=== PATIENT | female | born 1940 | race Caucasian/White ===

== ENCOUNTER → 2016-07-05 | Outpatient (CLI) | payer OTHER, MEDICARE ==
--- NOTE | 2016-07-05 12:06 | DX ---
Sacroiliac Joints-3 Views dated July 05, 2016 Indication: Low back and buttock pain. No known trauma. Technique: AP and bilateral oblique views of the sacroiliac joints. Comparison: CT of the abdomen and pelvis dated September 11, 2012. Findings: Severe degenerative disk disease at L5-S1 evidenced by complete disk height loss and endpla te sclerosis is worse on the left. Minimal age-appropriate osteoarthritis involving the lower two-thi rds of the sacroiliac joints are unchanged since 2012. No erosive disease, fracture or bone lesion. Impression: 1. Severe degenerative disk disease at L5-S1. 2. 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
== END ==
LOC: FIMAGING 09:21
PROVIDERS: ATTEND Internal Medicine
DX: M51.37 Other intervertebral disc degeneration, lumbosacral region (principal); M47.898 Other spondylosis, sacral and sacrococcygeal region

== ENCOUNTER → 2016-10-17 | Outpatient (CLI) | payer OTHER, MEDICARE | LOC: BHFA 09:30 | PROVIDERS: ATTEND Internal Medicine Cardiovascular Disease | DX: I48.91 Unspecified atrial fibrillation (principal) ==

== ENCOUNTER → 2017-03-06 | Outpatient (CLI) | payer OTHER, MEDICARE | LOC: FIMAGING 07:41 | PROVIDERS: ATTEND Internal Medicine | DX: F03.90 Unspecified dementia, unspecified severity, without behavioral disturbance, psychotic disturbance, mood disturbance, and anxiety (principal); F32.9 Major depressive disorder, single episode, unspecified; F68.8 Other specified disorders of adult personality and behavior; I67.2 Cerebral atherosclerosis ==

== ENCOUNTER 2018-03-02 09:34 | Inpatient (IN) | payer OTHER, MEDICARE ==
--- NOTE | 2018-03-02 10:07 | EDPHY ---
General - Diagnostics EKG: I reviewed patient's EKG. See [facility] system for interpretation <William Nichole - Last Filed: 03/02/18 10:43> - Diagnostics Imaging: Discussed imaging studies w/ [facility] [employer] [place] Radiologist, I viewed and interpreted images myself - History History Review: I reviewed the patient's medical records, I obtained additional history from the patient's family Smoking Status: Former smoker <Ric Azul - Last Filed: 03/02/18 12:28> Time Seen by Provider: 03/02/18 09:54 Narrative: CHIEF COMPLAINT: Weakness HISTORY OF PRESENT ILLNESS: Patient presents with spouse at bedside by private vehicle. She complains of weakness and tremor. Weakness has been present for 6 months to 1 year. It has worsened over the past week, to the point that she had difficulty ambulating this morning. She states that her legs felt too weak for her. She has no sensory complaints. She does some tremor that has been steady over the past 6 months as well. She has no chest pain, cough, shortness of breath or fever. No urinary complaints. No abdominal pain. Headache. No neck pain or stiffness. She has been seen by primary care physician recently. Her psychiatrist recently changed her medications as she is being treated for depression anxiety. They increased her Paxil from 10 mg daily to 20 mg daily on Friday. They also added Abilify to her. says that she has been increasingly weak but denies any memory changes, abnormal behavior or difficulty ambulating prior to this morning. REVIEW OF SYSTEMS: 10 systems were reviewed and negative with the exception of the elements mentioned in the history of present illness. PCP: Dr. Bautista SPECIALISTS: Dr. Loyd, psychiatry PAST MEDICAL HISTORY: Depression, anxiety, atrial fibrillation, pneumonia, glaucoma PAST SURGICAL HISTORY: "Glaucoma surgery," hysterectomy, lysis of adhesions SOCIAL HISTORY: Remote smoking history, greater than 40 years ago. Lives independently with her spouse without any home assistance. FAMILY HISTORY: Noncontributory EXAMINATION: General Appearance: Alert, no distress. Frail-appearing. Conversing in full sentences Head: normocephalic, atraumatic Eyes: Pupils equal and round, no conjunctival pallor or injection. Bilateral arcus senilis. EOM symmetric. ENT, Mouth: Mucous membranes moist. Airway patent Neck: Normal inspection, supple, non-tender Respiratory: Lungs are clear to auscultation Cardiovascular: Regular rate and rhythm. No murmur Gastrointestinal: Abdomen is soft and nontender Back: non-tender, no bony abnormalities Neurological: GCS 15. A&O, nonfocal. Strength is 4/5 symmetrically in the knees, ankles and great toes. Strength is 4-5 symmetrically in the elbows, wrist and interossei. There is a tardive dyskinesia appearance of the jaw. Resting lower extremity tremor without any intention tremor or caught will rigidity. Skin: Warm and dry, no rash Extremities: Nontender, no pedal edema Psychiatric: Mood and affect normal DIFFERENTIAL DIAGNOSES: Including but not limited to UTI, pneumonia, dehydration, chronic debility, electrolyte disturbance, ACS, tardive dyskinesia MDM: 10:05 a.m. Increasing weakness in patient with history of weakness, depression and recent changes in her medication. She has no chest pain. Vital signs are within normal limits. Her neuro exam is nonfocal. This does appear to be chronic weakness and maybe increasing debility. She does have an apparent tardive dyskinesia with resting tremor of the lower extremities. There is no caught will type rigidity. No dysmetria. I discussed the case with Dr. Nichole, he will evaluate the patient as well. Laboratory studies, EKG and chest x-ray pending. 10:30 a.m. CBC unremarkable with no anemia. Troponin is negative. Notified by RN. The urine set provide is not a clean catch, and when patient was standing she did appear to be very weak and potential fall risk. 11:00 a.m. Laboratory studies are unremarkable. There is minimal leukocyte esterase in the urine. No definitive urinary tract infection, and she clinically has no UTI. Patient is not safe for discharge home at this time as she is a fall risk with increasing weakness. The and patient are both comfortable with mission to the hospital, I do feel this is the right plan of action for the patient 11:20 a.m. Case discussed with hospitalist. She will be admitted to the hospital to Dr. Polanco. She is admitted in stable condition. SUPERVISION: Patient was evaluated and examined in conjunction with my secondary supervising physician as documented. We have both examined the patient. CONSULTATION: None (Ric Azul) - Diagnostics EKG Interpretation: 12-lead EKG interpreted by me; official reading is in computer system. My interpretation is atrial paced at rate of 61. (William Nichole) Imaging Results: Imaging Impressions Chest X-Ray 03/02/18 10:08 Impression: Asymmetric right upper lobe edema versus early pneumonia. - Objective Vital Signs: Initial Vital Signs Temperature (C) 97.5 F 03/02/18 09:39 Heart Rate 61 03/02/18 09:39 Respiratory Rate 18 03/02/18 09:39 Blood Pressure 148/80 H 03/02/18 09:39 O2 Sat (%) 96 03/02/18 09:39 O2 Delivery Mode Room Air Allergies/Adverse Reactions: No Known Allergies Allergy (Unverified 03/02/18 09:45) Home Medications: Medication Instructions Recorded Brimonidine/Timolol [Combigan (*)] 1 drop OP Q12 02/23/14 Brinzolamide 1% [AZOPT 1% (RX)] 1 drops OP TID 02/23/14 C/E/Zn/Cu/OM3/DHA/EPA/LUT/ZEAX 1 each PO DAILY 02/23/14 [Preservision Areds 2 Softgel] Cholecalciferol Vit D3 [Vitamin D3 1,000 units PO DAILY 02/23/14 (*)] Estring Vaginal Ring 1 applic VG Q90D 02/23/14 Travoprost Z 0.004% [Travatan Z 1 drops OP HS 02/23/14 0.004% (*)] Warfarin Sodium [Coumadin 5MG (*)] 5 mg PO DAILY16 02/23/14 Sotalol HCl [Betapace 80 MG (*)] 120 mg PO BID #60 tab 02/25/14 Laboratory Results: Laboratory Results 03/02/18 10:15 03/02/18 10:15 03/02/18 03/02/18 03/02/18 10:30 10:17 10:15 WBC RBC Hgb Hct MCV MCH MCHC RDW Plt Count MPV Neut % (Auto) Lymph % (Auto) Swisher % (Auto) Eos % (Auto) Baso % (Auto) Nucleat RBC Rel Count Absolute Neuts (auto) Absolute Lymphs (auto) Absolute Monos (auto) Absolute Eos (auto) Absolute Basos (auto) Absolute Nucleated RBC Immature Gran % Immature Gran # PT 17.0 SEC H SEC (12.0-15.0) INR 1.37 H (0.83-1.16) APTT 30.7 SEC SEC (23.0-38.0) Sodium Potassium Chloride Carbon Dioxide Anion Gap BUN Creatinine Estimated GFR Glucose Calcium POC Troponin I 0.01 ng/mL ng/mL (0.00-0.08) Prealbumin Urine Color YELLOW Urine Appearance CLEAR Urine pH 6.0 (5.0-7.5) Ur Specific Debary 1.012 (1.002-1.030) Urine Protein NEGATIVE (NEGATIVE) Urine Ketones NEGATIVE (NEGATIVE) Urine Blood NEGATIVE (NEGATIVE) Urine Nitrate NEGATIVE (NEGATIVE) Urine Bilirubin NEGATIVE (NEGATIVE) Urine Urobilinogen NEGATIVE EU EU (0.2-1.0) Ur Leukocyte Esterase 3+ H (NEGATIVE) Urine RBC 3-5 /hpf H /hpf (0-3) Urine WBC 5-10 /hpf H /hpf (0-3) Ur Epithelial Cells NONE SEEN /lpf /lpf (NONE-1+) Urine Mucus TRACE /lpf /lpf (NONE-1+) Urine Glucose NEGATIVE (NEGATIVE) 03/02/18 03/02/18 03/02/18 10:15 10:15 09:45 WBC 5.30 10^3/uL 10^3/uL (3.80-9.50) RBC 4.66 10^6/uL 10^6/uL (4.18-5.33) Hgb 14.5 g/dL g/dL (12.6-16.3) Hct 43.1 % % (38.0-47.0) MCV 92.5 fL fL (81.5-99.8) MCH 31.1 pg pg (27.9-34.1) MCHC 33.6 g/dL g/dL (32.4-36.7) RDW 12.8 % % (11.5-15.2) Plt Count 208 10^3/uL 10^3/uL (150-400) MPV 10.2 fL fL (8.7-11.7) Neut % (Auto) 62.6 % % (39.3-74.2) Lymph % (Auto) 20.9 % % (15.0-45.0) Swisher % (Auto) 13.6 % H % (4.5-13.0) Eos % (Auto) 2.1 % % (0.6-7.6) Baso % (Auto) 0.6 % % (0.3-1.7) Nucleat RBC Rel Count 0.0 % % (0.0-0.2) Absolute Neuts (auto) 3.32 10^3/uL 10^3/uL (1.70-6.50) Absolute Lymphs (auto) 1.11 10^3/uL 10^3/uL (1.00-3.00) Absolute Monos (auto) 0.72 10^3/uL 10^3/uL (0.30-0.80) Absolute Eos (auto) 0.11 10^3/uL 10^3/uL (0.03-0.40) Absolute Basos (auto) 0.03 10^3/uL 10^3/uL (0.02-0.10) Absolute Nucleated RBC 0.00 10^3/uL 10^3/uL (0-0.01) Immature Gran % 0.2 % % (0.0-1.1) Immature Gran # 0.01 10^3/uL 10^3/uL (0.00-0.10) PT INR APTT Sodium 139 mEq/L mEq/L (135-145) Potassium 4.4 mEq/L mEq/L (3.3-5.0) Chloride 106 mEq/L mEq/L (97-110) Carbon Dioxide 28 mEq/l mEq/l (22-31) Anion Gap 5 mEq/L L mEq/L (8-16) BUN 23 mg/dL mg/dL (7-23) Creatinine 0.6 mg/dL mg/dL (0.6-1.0) Estimated GFR > 60 Glucose 89 mg/dL mg/dL (70-100) Calcium 9.9 mg/dL mg/dL (8.5-10.4) POC Troponin I Prealbumin Pending Urine Color Urine Appearance Urine pH Ur Specific Debary Urine Protein Urine Ketones Urine Blood Urine Nitrate Urine Bilirubin Urine Urobilinogen Ur Leukocyte Esterase Urine RBC Urine WBC Ur Epithelial Cells Urine Mucus Urine Glucose Point of Care Test Results: Chemistry 03/02/18 10:17 POC Troponin I 0.01 ng/mL ng/mL (0.00-0.08) Departure <William Nichole - Last Filed: 03/02/18 10:43> <Ric Azul - Last Filed: 03/02/18 12:28> - Departure Disposition: [facility] Inpatient Acute Clinical Impression: Weakness, Resting tremor Condition: Good Referrals: Grupo Bautista MD [Primary Care Provider] - As per Instructions
--- NOTE | 2018-03-02 10:19 | CPEKG ---
Test Reason : OPEN Blood Pressure : / mmHG Vent. Rate : 061 BPM Atrial Rate : 061 BPM P-R Int : 047 ms QRS Dur : 082 ms QT Int : 444 ms P-R-T Axes : 101 055 058 degrees QTc Int : 448 ms Atrial-paced complexes Consider left ventricular hypertrophy Confirmed by William Nichole ([id number]) on 03/02/2018 10:19:19 AM Referred By: Confirmed By:William Nichole
[2018-03-02 10:24] LABS: PLATELET COUNT 208 10^3/uL (150-400)
[2018-03-02 10:35] LABS: INR 1.37 (0.83-1.16)
[2018-03-02] MEDS ORDERED: ACETAMINOPHEN 325 MG TAB PO PRN (13:02)
[2018-03-02] MEDS ORDERED: [UNRECOGNIZED DRUG - OTHER] VG SCH (13:15)
--- NOTE | 2018-03-02 14:09 | GHP ---
DATE OF ADMISSION: 03/02/2018 CHIEF COMPLAINT: Weakness, failure to thrive. HISTORY OF PRESENT ILLNESS: The patient is a 78-year-old woman with a history significant for severe depression and anxiety. She has had worsening weight loss and weakness dating back for a year and a half. However, over the last week and a half to 3 weeks has had escalating symptoms to a point where today she tried to get out of bed and could not get her legs working, so came to the emergency department for further evaluation and treatment. She said she has been losing weight over several months. It appears her weight in clinic have been relatively stable, but since her last clinic visit a couple weeks ago, she has dropped about 10 pounds. She has been eating and drinking okay, but has had intermittent diarrhea over the last 3 weeks, which is new for her. She denies any headache. She has had worsening vision issues due to her glaucoma, which is stable. She denies any chest pain, palpitations, but is in chronic atrial fibrillation followed by Dr. Hernandez. She denies any cough, shortness of breath. She denies any abdominal complaints except for the diarrhea. No nausea , vomiting. No pain. No joint pains or myalgias. No swelling. She has noticed a tremor. She has had a tremor in her hands and feet for several months. However, over the last 2-3 months has developed a facial tremor which is new to her. She denies any fevers, chills, night sweats. Over the last few weeks, her primary care provider and her psychiatrist have been working together to try and get her anxiety and depression under control, feeling like this was the main cause of her failure to thrive and weakness. Her Paxil was recently increased from 10 to 20 mg and Abilify was added last Friday. She states that the change in her symptoms have occurred prior to these medication changes, although the medication changes have not affected it for the better or worse. Her anxiety has been fairly severe, as well as her depression dating back to the of her son a year and half ago. She has been followed closely by Dr. Loyd, a local psychiatrist. REVIEW OF SYSTEMS: A comprehensive review of systems was done with pertinent positives and negatives present in the HPI. PAST MEDICAL HISTORY: 1. Major depression/anxiety with agoraphobia. 2. Macular degeneration. 3. Atrial fibrillation on anticoagulation and rate control. 4. Status post pacemaker placement. 5. Hypertension. 6. Dyslipidemia. 7. Low vitamin D levels. 8. Moderate chronic vaginal enterocele on Estring. 9. Severe protein/calorie malnutrition with a BMI 15. FAMILY HISTORY: Reviewed. Parents are . Son recently from lung cancer. Sister who from colon cancer. SOCIAL HISTORY: She is . She and her live in their own home. She had been relatively independent until recently. Former tobacco use. Drinks about once a week. MEDICATIONS: Please see med reconciliation. ALLERGIES: No known drug allergies. PHYSICAL EXAMINATION: VITAL SIGNS: She is afebrile. Heart rate 58, blood pressure 139/75, respirations 18. She is 93% on room air. GENERAL: She is a cachectic 78-year-old woman with temporal wasting, who was admitted with failure to thrive and weakness. HEENT: Pupils are equal. Extraocular movements intact. Atraumatic. Mucous membranes are dry. NECK: Supple. No adenopathy. HEART: Regular without obvious murmur. Pacemaker in place. LUNGS : Clear bilaterally without wheeze, rhonchi, or rales. ABDOMEN: Flat. No obvious masses. Nontender to palpation. Positive bowel sounds. EXTREMITIES: No clubbing, cyanosis, or edema. MUSCULOSKELETAL: No joint effusions or deformities. Atrophy. NEUROLOGIC: Speech is fluent. She is alert. She moves all 4 extremities equally. Strength appears fairly equal 4+ out of 5 on all 4 extremities. Sensation grossly intact. SKIN: Intact. No rash. PSYCHIATRIC: Flat affect, appropriate. LABORATORY DATA: CBC is within normal limits. Coags shows an INR 1.37. Chemistries are normal. Negative troponin. Urinalysis was not a clean catch and is fairly unremarkable. Chest x-ray personally reviewed, shows asymmetry of the right upper lobe. Patient otherwise asymptomatic and pacemaker in place. Electrocardiogram personally reviewed and interpreted, shows paced rhythm. ASSESSMENT AND PLAN: A 78-year-old with weight loss, failure to thrive, and weakness of unclear etiology. She has been followed closely by her outpatient physician and psychiatrist and the etiology has been thought to be related to her depression, although other possibilities include neurological. Her serologic workup was negative for metabolic cause. In the office, she did have a thyroid and vitamin B12 level which were normal. Today all of her electrolytes were normal. 1. Failure to thrive, weakness, and weight loss: Unclear etiology. Initial blood work is all normal, she has had TSH and vit B12 within a month that was normal. She has developed a worsening tremor and has some parkinsonian features and question possible Lewy body, unfortunately cannot image her due to PPM. Will continue PT, consult Neurology and consult Psychiatry (see below). Will hydrate her and Continue physical therapy and occupational therapy while she is here. 2. Depression/anxiety: I called her psychiatris, Dr. Nunes at [phone], He feels that she is declining from depression as this is the anniversary of the of her son. He has had difficulty treating her as an outpatient due to her heart heart medicine and possible interaction with it. Additionally he wonders if ECT would be helpful but is concerned about her glaucoma. I will continue her usual medications and consult psychiatry for possible inpatient admission for med adjustment. 3. Tremor: This symptom has been worsening over the past several months, unclear etiology. After talking with her primary care provider, I will go ahead and order a neurologic consult to see if she has any evidence of Lewy body dementia or possible Parkinson disease contributing to this. I will additionally order a speech cog eval and monitor her symptoms. Unable to image her at this time due to her pacemaker. 4. Atrial fibrillation: On Sotalol and Status post pacemaker placement, stable. 5. Hypertension: Stable. 6. Dyslipidemia. 7. Glaucoma. We will continue her eyedrops. DISPOSITION: Patient with multiple medical issues, severe protein/calorie malnutrition with acute weight loss and weakness. She will likely need greater than 2 midnight stay for full evaluation and treatment of the above. /[id number]/MODL MTDD
[2018-03-02] MEDS: Brinzolamide 1% 10 ml OPHT.BTL EACHEYE SCH ×2 (14:49→18:30)
[2018-03-02] MEDS: WARFARIN SODIUM 5 MG TAB PO SCH (14:51)
[2018-03-02] MEDS: NS 1,000 ML IV SCH (16:52)
--- NOTE | 2018-03-02 17:02 | PDMN ---
Medical Necessity Medical necessity: Change to IP, as of 03/02/18, per MD; est los >2 mn for failure to thrive w/weight loss, worsening tremor & weakness of unclear etiology ; requiring further monitoring, Neuro/Psychiatry/Dietary consults, IVFs & therapies; hx major depression, anxiety, macular degeneration, AFIB on AC, pacemaker, severe protein/calorie malnutrition
[2018-03-02] MEDS: SOTALOL HCL 80 MG TAB PO SCH (18:05)
[2018-03-02] MEDS: BRIMONIDINE/TIMOLOL 5 ML OPHT.BTL EACHEYE SCH (19:01)
[2018-03-02] MEDS: TRAVOPROST Z 0.004% 2.5 ML OPHT.BTL EACHEYE SCH (20:45)
[2018-03-02] MEDS: clonazePAM 0.5 MG TAB PO SCH (20:47)
[2018-03-03] MEDS: SOTALOL HCL 80 MG TAB PO SCH ×3 (06:15→18:15)
[2018-03-03] MEDS: Brinzolamide 1% 10 ml OPHT.BTL EACHEYE SCH ×3 (06:24→20:01)
[2018-03-03 06:45] LABS: INR 1.44 (0.83-1.16); PROTIME(PATIENT) 17.7 SEC (12.0-15.0)
[2018-03-03] MEDS: BRIMONIDINE/TIMOLOL 5 ML OPHT.BTL EACHEYE SCH ×2 (07:45→18:13)
[2018-03-03] MEDS: clonazePAM 0.5 MG TAB PO SCH ×2 (08:22→20:00)
[2018-03-03] MEDS: ARIPiprazole 2 MG TAB PO SCH (08:23)
[2018-03-03] MEDS: PARoxetine HCL 20 MG TAB PO SCH (08:23)
[2018-03-03] MEDS: CHOLECALCIFEROL VIT D3 1,000 UNITS TAB PO SCH (12:13)
[2018-03-03] MEDS: PRESERVISION AREDS2 FORMULA EYE VIT 1 EACH PO SCH (12:14)
--- NOTE | 2018-03-03 12:16 | ASMTCMCOM ---
CM Note CM Note Notes: Patient admitted with weakness and FTT, has multiple medical and psychiatric issues. She is followed as an outpatient by her PCP Dr Bautista and her psychiatrist Dr Loyd. They have been working on medication reconciliation given her multiple comorbitities. Patient lives with her and was independent until recently. Per notes, her son recently and this has contributed to her ailing health. PT/OT/FISHING ACCESSORIES MAKER have been ordered, as well as psychiatry and neurology consults. Case Management will follow for discharge planning. Date Signed: 03/03/2018 12:15 PM Electronically Signed By:Re Srivastava RN
--- NOTE | 2018-03-03 14:49 | HOSPPROG ---
Hospitalist Progress Note Assessment/Plan: Complicated 78-year-old woman with multiple medical issues including severe depression and atrial fibrillation comes in with failure to thrive and weight loss. She has been evaluated by her primary care physician and psychiatrist as an outpatient over the last few months as her decline has progressed. It is felt by both her PCP and psychiatrist that the decline is likely related to her severe depression and anxiety as medical issues have been ruled out except for a tremor that has worsened over the past few months. # failure to thrive and weight loss, thought secondary to depression which has been difficult to treat due to medication interactions. No obvious infection, a normal electrolytes. Will have Neurology evaluate her to rule out any possible neurologic etiology # severe depression and anxiety likely contributing to her presenting symptoms. I had a long detailed discussion with her psychiatrist Dr. Loyd. He has been limited as far as treatment options due to her sotalol medication which can interact and cause long QT syndrome. * Psychiatric consult for possible inpatient admission to adjust her medications due to severe decline over the last few weeks * Negative CT scan a year ago will defer to Neurology for any further imaging needs * Options include stopping the sotalol which would open up treatment for different psychiatric medications # atrial fibrillation currently controlled with sotalol and on warfarin for anticoagulation I discussed her in detail with Dr. Hernandez her ticket sales agent. She has been on sotalol for years with good control however it has limited options because of the drug drug interactions and long QT syndrome. She could stop the sotalol and monitor her symptoms since she has not been on a drug holiday any time recently. If she has recurrent symptoms of rapid AFib Dr. Hernandez would be consideration of an ablation since she already has a pacemaker in place * Consider DC sotalol and monitor, patient does not need to be on telemetry. Patient would like to discuss with her 1st * If she has recurrent AFib off the sotalol she could potentially get an ablation per Dr. Hernandez * I feel as if the quality of life and limitations of treating her depression may be worth the ablation. # tremor, question parkinsonian symptoms. Unclear if she has Parkinson's or possible Lewy body dementia although she is relatively clear. Unable to do any MRI imaging due to her pacemaker. * Neurology consult regarding tremor * I do not think it is related to her failure to thrive but would like to Neurology input * May be related to her medications? And vision loss that see # diarrhea: Patient complained of diarrhea for 3 weeks however has had no none since admission. Will check a GI panel if she has recurrent watery diarrhea # glaucoma: Worsening vision loss. Unfortunately this may preclude ECT treatment for above depression with discuss with Psychiatry. Disposition: Will need greater than 2 midnight stay due to her severe failure to thrive and weight loss that has been escalating. Await psychiatric evaluation for possible transfer to inpatient psych and Neurology evaluation. If she is transfer to inpatient psych would consider stopping the sotalol to open up options for treating her verses ECT. She does have severe glaucoma Subjective: Patient feels about the same today no significant changes. No diarrhea since admission. Objective: Vital Signs Temp Pulse Resp BP Pulse Ox 36.5 C 70 18 141/74 H 94 03/03/18 11:31 03/03/18 11:31 03/03/18 11:31 03/03/18 11:31 03/03/18 11:31 Laboratory Results 03/03/18 06:25 03/02/18 03/03/18 03/04/18 05:59 05:59 05:59 Intake Total 1350 Output Total 250 600 Balance 1100 -600 PT 17.7 SEC (12.0-15.0) H 03/03/18 06:25 INR 1.44 (0.83-1.16) H 03/03/18 06:25 - Physical Exam Constitutional: chronically ill appearing, cachectic Eyes: PERRL, EOMI Ears, Nose, Mouth, Throat: moist mucous membranes Cardiovascular: regular rate and rhythym Respiratory: no respiratory distress, no rales or rhonchi, clear to auscultation Gastrointestinal: soft, non-tender abdomen Genitourinary: no bladder fullness Skin: warm, normal color (Pale) Musculoskeletal: generalized weakness Psychiatric: interacting appropriately ICD10 Worksheet Patient Problems: Problems Problem Status Onset Resting tremor Acute Weakness Acute Atrial fibrillation and flutter Acute
[2018-03-03] MEDS: WARFARIN SODIUM 5 MG TAB PO SCH (17:09)
[2018-03-03] MEDS: NS 1,000 ML IV SCH (17:17)
--- NOTE | 2018-03-03 18:46 | NEUROPROG ---
Assessment: [id number] - Neurology Consult: - CC: Failure to Thrive - HPI: Pt with significant depression/anxiety has had worsening weight loss and weakness dating back to 2016. Over the past 3 weeks symptoms of weakness has worsened and she has been too weak to get out of bed. Pt has lost 10 lbs in the last few weeks preceding hospital admission on 03/02/18. She has tremor in both her hands and feet for several months and over the last 2-3 months has developed a facial tremor. Pt has been working with her PCM and psychiatrist in the outpatient setting and they feel her depression/anxiety explains her failure to thrive. The patient did start abilify a few weeks ago but tremor preceded this. She denied bradykinesia. I spoke with her and her and neither endorsed memory loss, parkinsonian symptoms (other than tremor), or significant cognitive decline. They state she just has no motivation to get out of bed or eat food for the last year. Neurologic exam on 03/03/18 showed tremor in mouth and arms/legs (intermittent) but also the patient was emaciated. She had no bradykinesia, significant rigidity on exam, or cognitive problems to suggest dementia. She certainly may have an atypical neurodegenerative disease but treatment would like not be any different than current therapy aimed at treating her anxiety/depression. I suspect her tremor may be a combination of abilify side effects (facial tremor) and increased sympathetic tone or low blood pressure (from her underlying weight loss). I would recommend stopping abilify, checking a head CT, and focusing on getting her to find the motivation to get out of bed and consume much more calories. Both patient and her felt that was the likely solution as well. Pt can f/u with me in the clinic if they would like but at this time I do not think it is likely she has a neurodegenerative process. - PMHx: depression/anxiety, macular degeneration, afib on anticoagulation, pacemaker, HTN, HLD, vaginal enterocele, severe protein/calorie malnutrition - SHx: FHx: parents - ROS: Pt denied acute fever, total vision loss, active severe chest pain, respiratory failure, total body severe rash, total bowel/bladder incontinence, psychosis, active seizures, or active bleeding - O: VS reviewed General: Alert, emaciated Eyes: Fundoscopic exam not able to visualize optic disks CV: Heart RRR, no murmur, no carotid bruit Lungs: Clear to auscultation bilaterally, no rhonchi or rales Neuro: - Mental: . Oriented x person/place/date . concentration appears normal . speech fluency/comprehension normal . memory appears normal . fund of knowledge appear intact - Cranial Nerves: . II: PERRL, VFFTC . III/IV/: EOMI, no nystagmus, normal smooth pursuits, no Ptosis . V: facial sensation intact to LT . VII: face symmetric to eye closure and smile . VIII: hearing intact to conversation . IX/X: uvula raises symmetrically . XI: SCM 5/5 B/L strength . XII: tongue protrudes midline w/nl strength - Motor: . Tone: normal tone in all 4 extremity, tremor in arms/legs, mouth tremor . Strength: no pronator drift, strength 5/5 throughout (B/L delt, bic, tri, hand science job titles, hf/he, df/pf) - Reflexes: B/L bic/BR/patella 2/4 - Sensory: all 4 extremity intact to light touch - Coord: [id number] wnl, DIAMOND wnl, cndr-ma-[id number] wnl - Gait: deferred - Labs: 02/12/2018- TSH wnl, B12 wnl 03/02/18- CBC wnl, Chem anion gap 5L, UA LE 3+, Urine culture positive - Rads: 03/06/17- Head CT: cerebrovascular atherosclerosis, otherwise normal head CT 03/02/18- CXR: asymmetric R upper lobe edema versus early PNA (I personally visualized the images on 03/03/18) - Assessment: 1. Failure to Thrive, Tremor: Pt with significant depression/anxiety has had worsening weight loss and weakness dating back to 2016. Over the past 3 weeks symptoms of weakness has worsened and she has been too weak to get out of bed. Pt has lost 10 lbs in the last few weeks preceding hospital admission on . She has tremor in both her hands and feet for several months and over the last 2-3 months has developed a facial tremor. Pt has been working with her PCM and psychiatrist in the outpatient setting and they feel her depression/ anxiety explains her failure to thrive. The patient did start abilify a few weeks ago but tremor preceded this. She denied bradykinesia. I spoke with her and her and neither endorsed memory loss, parkinsonian symptoms (other than tremor), or significant cognitive decline. They state she just has no motivation to get out of bed or eat food for the last year. Neurologic exam on 03/03/18 showed tremor in mouth and arms/legs (intermittent) but also the patient was emaciated. She had no bradykinesia, significant rigidity on exam, or cognitive problems to suggest dementia. She certainly may have an atypical neurodegenerative disease but treatment would likely not be any different than current therapy aimed at treating her anxiety/depression. I suspect her tremor may be a combination of abilify side effects (facial tremor) and increased sympathetic tone or low blood pressure (from her underlying weight loss). I would recommend stopping abilify, checking a head CT, and focusing on getting her to find the motivation to get out of bed and consume much more calories. Both patient and her felt that was the likely solution as well. Pt can f/u with me in the clinic if they would like but at this time I do not think it is likely she has a neurodegenerative process. - 2. Depression/anxiety - Plan: - Cannot have brain MRI due to pacemaker - Head CT to exclude brain lesion - Stop abilify if possible as it may be worsening tremor - Work closely with PCM and psychiatry with focus on improving motivation to get out of bed and consume much more calories - F/U in neurology clinic as needed Objective: Vital Signs Temp Pulse Resp BP Pulse Ox 37.0 C 80 16 174/91 H 94 03/03/18 16:13 03/03/18 18:15 03/03/18 16:13 03/03/18 18:15 03/03/18 16:13 Laboratory Results 03/03/18 06:25 03/02/18 03/03/18 03/04/18 05:59 05:59 05:59 Intake Total 1350 1900 Output Total 250 2400 Balance 1100 -500 PT 17.7 SEC (12.0-15.0) H 03/03/18 06:25 INR 1.44 (0.83-1.16) H 03/03/18 06:25 Allergies/Adverse Reactions: No Known Allergies Allergy (Verified 03/02/18 11:30)
[2018-03-03] MEDS: TRAVOPROST Z 0.004% 2.5 ML OPHT.BTL EACHEYE SCH (20:01)
--- NOTE | 2018-03-03 22:35 | PDCONSULT ---
Electron Beam Operator Note: PSYCHIATRY MD CONSULT Psychiatry consult requested by hospitalist Dr. Stephanie Polanco to evaluate this patient with severe depression, make any medication recommendations, also to consider possible inpatient psychiatric admission. Records reviewed , patient interviewed, discussed case with hospitalist and neurology, and called outpatient psychiatrist Dr. Worley (with patient verbal consent) for collateral CC: "I have been having a lot of tremors, I'm on 2 different antidepressants and an antianxiety medicine..." BRIEF HX: 78-year-old female with history of depression and anxiety, admitted to [facility] inpatient medicine service for weight-loss, failure to thrive, and weakness of unclear etiology, but presumed due to worsening depression and anxiety. Patient acknowledges feeling sad, depressed. 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 She admits praying to God that she is ready to go- feeling she's "had a good life, a good man, had a good family", but is now ready to go". She denies that she would do anything to end her life prematurely, but does acknowledge passive suicidal ideation. Not wanting to go outside because "bright sun affects my glaucoma and vision", has trouble with depth perception, can not read any longer, and avoids socializing because "being around a lot of people makes me nervous...too much commotion". Admits having occasional panic or anxiety attack about once/week, tries to calm self by holding her legs still and praying. Feels safe when her is around, otherwise home alone during day while he is at work, until he retires at end of this month. When he is not there, she worries about things such as "what if the water heater blew up" and doesn't use electric stove because clothes may catch on fire if she can't see well. Denies sleeping all day as reports, states she "walks all day up and down" flights of stairs doing some chores in their 3 level home, and does take naps. Poor appetite with weight loss over past several months. Was 120# down to 87# and reported with BMI=15. Denies problems with thinking/memory, no crying spells, +insomnia with early AM awakening at 2 or 3am, +low energy, +anhedonia which she reports is due to physical inability. Used to enjoy going outdoors, socializing, traveling, attending temple and spending time with family. States she is tenriism/spiritual, and she could call test cell technician for support, but then admits not going to temple x 2 years and there's a new test cell technician she doesn't know. Denied ever experiencing psychotic symptoms, although once heard brother call her name and expects son Maykel to perhaps do something like this sometime. Denied drug or alcohol use. reports gradual onset of anxiety and depressive symptoms, in retrospect , about 5 years ago following a significant financial stressor with Medicare denying payments and billing them $80K. Around then, in 2013 she had acute vision change in L eye due to a "macular hole", then began a course of eye surgeries, issues with glaucoma, cataracts, and ongoing vision impairment, having to stop working earlier than planned due to her vision, and then in 2015 their son was diagnosed with metastatic renal cell carcinoma and 02/16/2017 , one week after his 51st birthday. Over the past several years she has also lost several siblings. described her baseline as happy, outgoing, social , "she would light up the room when she entered", but over the past 1.5-2 years , she has become more withdrawn, isolative, depressed, "her spark left", she no longer engagse with family or grandchildren, and doesn't allow anyone to come over to their home; she no longer drives, exercises, cooks, and seems to sleep all the time, including with manager digital ad operations awakening. She has developed a tremor , which preceeded her recent psychiatric medications, and this tremor worsens when she is anxious or angry. She has no motivation, only leaving the house with her for medical appointments. She has been with poor appetite and weight loss, and feels she is "wasting away" and is very concerned about her. PAST PSYCHIATRIC HISTORY: As above. No prior psychiatric diagnosis, treatment, therapy, or medications until 6 months ago when started seeing therapist Dr. Pratibha Conn ([phone]) . This was same therapist whom her son had found very helpful during his divorce. Apparently therapist would like to see patient weekly but only seeing q2-3wks. Denied history of eating disorder. Denied history of trauma. PSYCHIATRIC MEDICATIONS: last scourer Dr. Bautista reportedly started Klonopin for anxiety around time of son's 1 year ago, then at some point during the past year added Wellbutrin (?dose) which according to patient and "helped a little", and then was referred to psychiatrist Dr. Akira Worley whom she started seeing in December 2017. It was not clear why Wellbutrin was discontinued or if at maximum dose before change management to Paxil. Paxil was started 10mg around 6 weeks ago, with discontinuation of Wellbutrin when Paxil was increased to 20mg recently. Thereafter Abilify 0.5mg added for augmentation, increased to 1mg last week. Patient and report one day of feeling better following start of Paxil, and again after Abilify was added, but then no notable effect. Both think Wellbutrin had been helping a little. -Dr. Worley reports medication choice of Paxil was based on least drug-drug interactions with Sotalol for her Afib to minimize QTc prolongation and considerations with her glaucoma, in conjunction with cardiology and opthamology. Also tremor was present prior to start of any of these medications. Unclear how tremor related to start of Wellbutrin. He will call back with more medication details when has chart available. SUBSTANCE USE: Reported EtOH 1-2x/year, no other tobacco or illicit drug use. concurs. PAST MEDICAL HISTORY: macular degeneration glaucoma atrial fibrillation on anticoagulation and rate control medication s/p pacemaker placement hypertention dyslipidemia Vitamin D deficiency moderate chronic vaginal enterocele on Estring hysterectomy severe protein/calorie malnutrition with BMI=15. FAMILY/PSYCHIATRIC HISTORY: Father- EtOH, otherwise denied major mental illness, suicide, or substance use known in family Youngest brother 2 years ago with early Alzheimer's and post surgical complications, 1 older brother at 8yo of skull fracture post fall out of a window, 1 sister of cancer, another of DM/old age, 1 brother of AIDS long ago. Has one older brother still living in [place]. 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 High school grad, grew up in [place], middle of 7 children in Anabaptist family. Both patient and were each previously x 13-14 years. They have been x 39years since 1978, with their only 2 kids from his prior marriage. Patient raised son Maykel since he was 13, he was living in [place]. Daughter Margaret is 50yo and living in [place]. Total 6 grandchildren, 4 living locally 9ages 18-25). Patient never able to have her own children due to tubal ,endometriosis,hysterectomy. MSE: cachectic, frail-appearing CF lying in hospital bed, wearing glasses. Good eye contact, soft-spoken but articulate with normal rate speech. Oral/buccal/ jaw tremor noted, increased as patient seemed more anxious, which seemed to be around discussing upsetting topics around loss. Mood depressed, affect depressed /flattened, but with increased anxiety as interview continued and then patient asked for to return and requested to terminate interview because feeling tired. Thoughts linear, with goal-directed responses, no AH/VH or any delusions/paranoia noted. +passive SI but denied any thoughts, plan or intent to harm self or others. insight fair, judgment limited. cognition seemed intact. IMPRESSION: 78yo CF with depression onset and worsening over past few years, especially since son 1 year ago with recent anniversary of loss. Has only recently begun in treatment with limited psychiatric medication options due to her medical issues and drug interactions, but if with no other medical/neurological cause for her weight loss, depression has reached severity of significantly affecting her health and functioning, including now with passive suicidal ideations. DIAGNOSIS: Major depressive disorder, severe, with passive suicidal ideations, r/o Depression with melancholic features, or with anxious features r/o generalized anxiety d/o Panic disorder with agoraphobia RECOMMENDATIONS: -Continue medical workup to ensure no medical etiology contributing to her failure to thrive and weight loss, including any indicated cancer screenings -Neurology finding no clear etiology of tremor except possible enhanced physiological tremor or related to severe malnutrition, but plan to continue outpatient follow-up -Recent discussion by hospitalist with office machine punch operator to trial off Sotalol and monitor Afib, to allow for more medication treatment options of her depression. and patient will be discussing this and make decision. -Outpatient psychiatrist will call back after checking on details around Wellbutrin dose prior to discontinuation. All did agree patient was a little better on Wellbutrin, and may benefit from combination antidepressant therapy, although given her recent worsening, inpatient psychiatric admission for acute stabilization, with consideration for ECT has also been discussed as possibility. -In discussion with outpatient psychiatrist, who has been coordinating care with outpatient providers both cardiology and opthamology, plan continue Paxil 20mg for now and also Abilify 1mg since tremor was not related to either, and she has not had therapeutic dose for therapeutic period of time to adequately assess response. -Patient does NOT want any change, especially decrease, in her Klonopin for anxiety. In hospital setting, with monitoring of oral intake, rehydration, OT and PT to ensure physical activity and strength rebuilding, some early improvement may be noted. -Would still also have ST-cog assessment done. Although not evident on conversation, and certainly impacted by depression, patient does have several risk factors for cognitive impairment -Presently, inpatient psychiatric treatment would need consideration following medical stabilization. Alternately, inpatient rehab with focus on regaining physical strength and weight, with continued psychiatric management, could be considered. -Will try to obtain collateral from outpatient therapist -Behavioral health will continue to follow closely while hospitalized, with further recommendations as indicated. Thank you for consult and do not hesitate to call with any questions.
[2018-03-04 04:29] LABS: INR 1.95 (0.83-1.16); PROTIME(PATIENT) 22.3 SEC (12.0-15.0)
[2018-03-04] MEDS: SOTALOL HCL 80 MG TAB PO SCH ×2 (05:32→17:08)
[2018-03-04] MEDS: Brinzolamide 1% 10 ml OPHT.BTL EACHEYE SCH ×3 (07:23→21:52)
[2018-03-04] MEDS: BRIMONIDINE/TIMOLOL 5 ML OPHT.BTL EACHEYE SCH ×2 (09:14→18:17)
[2018-03-04] MEDS: ARIPiprazole 2 MG TAB PO SCH (09:14)
[2018-03-04] MEDS: PARoxetine HCL 20 MG TAB PO SCH (09:14)
[2018-03-04] MEDS: clonazePAM 0.5 MG TAB PO SCH ×2 (09:14→21:51)
[2018-03-04] MEDS: PRESERVISION AREDS2 FORMULA EYE VIT 1 EACH PO SCH (13:21)
[2018-03-04] MEDS: CHOLECALCIFEROL VIT D3 1,000 UNITS TAB PO SCH (13:21)
--- NOTE | 2018-03-04 13:31 | HOSPPROG ---
Hospitalist Progress Note Assessment/Plan: # failure to thrive and weight loss, thought secondary to depression which has been difficult to treat due to medication interactions. No obvious infection, normal electrolytes, tsh, B12. -neurology consult reviewed, doubts neurodegenerative process -appreciate psych input -discussed cancer screening: up to date on colon ca screening, hasn't had mammogram # severe depression and anxiety likely contributing to her presenting symptoms. Discussed with Dr. Bonilla, psych * CT head - no acute change * cont paxil at current dose * psych considering adding back wellbutrin, to which she seemed to respond well in the past * cont klonopin # atrial fibrillation - currently paced rhythm, on sotalol. Some discussion about QT prolongation risk and drug interactions. At this point, Paxil and Wellbutrin are not QT prolonging drugs, thus will continue Sotalol. INR near therapeutic today, 1.95. * will stop sotalol if psychiatry wishes to use a drug that has QT prolonging properties (vs closely following QT segment with initiation of new drug) * If she has recurrent AFib off the sotalol she could potentially get an ablation per Dr. Hernandez * Cont coumadin, pharmacy dosing # tremor. Reviewed neurology notes, doubts neurodegenerative process, recommends stopping abilify, which may increase facial tremor * D/C abilify * cog eval requested # diarrhea: none here, GI pathogen panel if recurs # glaucoma: Worsening vision loss. Unfortunately this may preclude ECT treatment for above depression with discuss with Psychiatry. Disposition: cont inpt, may need inpt psych once medically stabilized Subjective: Pt doing ok. She ate lunch today and felt better about eating. No fevers/chills. Has intermittent orofacial tremor. Objective: Vital Signs Temp Pulse Resp BP Pulse Ox 36.6 C 74 16 95/57 L 93 03/04/18 11:25 03/04/18 11:25 03/04/18 11:25 03/04/18 11:25 03/04/18 11:25 Laboratory Results 03/03/18 06:25 03/03/18 03/04/18 03/05/18 05:59 05:59 05:59 Intake Total 1350 2400 Output Total 250 2900 400 Balance 1100 -500 -400 PT 22.3 SEC (12.0-15.0) H 03/04/18 04:03 INR 1.95 (0.83-1.16) H 03/04/18 04:03 - Physical Exam Constitutional: no apparent distress Eyes: PERRL Ears, Nose, Mouth, Throat: moist mucous membranes Cardiovascular: regular rate and rhythym Respiratory: no respiratory distress Gastrointestinal: normoactive bowel sounds, soft, non-tender abdomen Skin: warm Musculoskeletal: full muscle strength Neurologic: AAOx3 Psychiatric: interacting appropriately ICD10 Worksheet Patient Problems: Problems Problem Status Onset Resting tremor Acute Weakness Acute Atrial fibrillation and flutter Acute
[2018-03-04] MEDS ORDERED: WARFARIN SODIUM 2.5 MG TAB PO ONE (17:00)
[2018-03-04] MEDS: NS 1,000 ML IV SCH (18:17)
--- NOTE | 2018-03-04 19:08 | ASMTCMCOM ---
CM Note CM Note Notes: Chart reviewed. Patient also seen in rounds. Medications adjusted. Per PT should have services and OT recommending SNF. Dr Bonilla in to see. She has been FTT. Needs TBD. CM to follow. Plan: TBD Date Signed: 03/04/2018 03:25 PM Electronically Signed By:Elvi Graham RN
[2018-03-04] MEDS: TRAVOPROST Z 0.004% 2.5 ML OPHT.BTL EACHEYE SCH (21:53)
[2018-03-05] MEDS: SOTALOL HCL 80 MG TAB PO SCH ×2 (05:20→18:11)
[2018-03-05 05:40] LABS: INR 2.19 (0.83-1.16); PROTIME(PATIENT) 24.4 SEC (12.0-15.0)
[2018-03-05] MEDS ORDERED: buPROPion XL 150 MG TAB PO SCH (09:00)
[2018-03-05] MEDS: BRIMONIDINE/TIMOLOL 5 ML OPHT.BTL EACHEYE SCH ×2 (09:36→18:14)
[2018-03-05] MEDS: clonazePAM 0.5 MG TAB PO SCH ×2 (09:36→19:48)
[2018-03-05] MEDS: Brinzolamide 1% 10 ml OPHT.BTL EACHEYE SCH ×3 (11:22→19:49)
[2018-03-05] MEDS: CHOLECALCIFEROL VIT D3 1,000 UNITS TAB PO SCH (11:25)
[2018-03-05] MEDS: PRESERVISION AREDS2 FORMULA EYE VIT 1 EACH PO SCH (11:25)
--- NOTE | 2018-03-05 12:59 | HOSPPROG ---
Hospitalist Progress Note Assessment/Plan: # failure to thrive and weight loss, thought secondary to depression which has been difficult to treat. No obvious infection, normal electrolytes, tsh, B12. -neurology consult reviewed, doubts neurodegenerative process -appreciate psych input -discussed cancer screening: up to date on colon ca screening, hasn't had mammogram or pap -pt and not in favor or CT chest/abd/pelvis and believe this is related to her depression and apathy # severe depression and anxiety likely contributing to her presenting symptoms. Discussed with Dr. Bonilla, psych * CT head - no acute change * Paxil decreased to 10 mg daily with addition of wellbutrin (the latter can increase serum concentrations of paxil), discussed with psych and pharmacy * cont klonopin * psych considering ECT, though glaucoma is a concern. Will work on med management for now. # atrial fibrillation - currently paced rhythm, on sotalol. Some discussion about QT prolongation risk and drug interactions. At this point, Paxil and Wellbutrin are not QT prolonging drugs, thus will continue Sotalol. INR therapeutic today. * will stop sotalol if psychiatry wishes to use a drug that has QT prolonging properties (vs closely following QT segment with initiation of new drug) * reviewed EKG today, QTc 454, minimal change from prior, repeat this afternoon * If she has recurrent AFib off the sotalol she could potentially get an ablation per Dr. Hernandez * Cont coumadin, pharmacy dosing # tremor. Reviewed neurology notes, doubts neurodegenerative process, recommended stopping abilify, which can exacerbate facial tremor * D/C'd abilify * cog eval done 03/01, MOCA score 27/30 # diarrhea: none here, GI pathogen panel if recurs # glaucoma: Worsening vision loss. Unfortunately this may preclude ECT treatment for above depression. Disposition: cont inpt. PT recommending home care, OT recommending SNF. CM following. Subjective: Pt doing a little better today. Appetite improved. No pain. No fevers. Facial tremor a little better, more intermittent. Objective: Vital Signs Temp Pulse Resp BP Pulse Ox 37.2 C 64 16 115/66 94 03/05/18 12:00 03/05/18 12:00 03/05/18 12:00 03/05/18 12:00 03/05/18 12:00 Microbiology 03/05/18 08:30 Gastrointestinal Tract Panel (PCR) - Final Stool No Organism Detected Laboratory Results 03/03/18 06:25 03/04/18 03/05/18 03/06/18 05:59 05:59 05:59 Intake Total 2400 1465 Output Total 2900 1100 400 Balance -500 365 -400 PT 24.4 SEC (12.0-15.0) H 03/05/18 05:04 INR 2.19 (0.83-1.16) H 03/05/18 05:04 - Physical Exam Constitutional: no apparent distress, cachectic Eyes: PERRL Ears, Nose, Mouth, Throat: moist mucous membranes Cardiovascular: regular rate and rhythym Respiratory: no respiratory distress, clear to auscultation Gastrointestinal: normoactive bowel sounds Skin: warm Musculoskeletal: full muscle strength Neurologic: AAOx3 Psychiatric: interacting appropriately ICD10 Worksheet Patient Problems: Problems Problem Status Onset Resting tremor Acute Weakness Acute Atrial fibrillation and flutter Acute
--- NOTE | 2018-03-05 15:10 | SOAPPROG ---
SOAP Progress Note Assessment/Plan: Assessment: 78cy CF with depr/anxiety increased over past year following son's in 2016 with recent anniversary of loss, with reported initial gradual onset of depressive symptoms a few years ago due to macular degeneration causing early fdc and now with progressive vision impairment and tremor of uncertain etiology. Started antidepressant treatment about 1 year ago, with medication options limited due to QTc risks since on Sotolol (since 2007per pt) for chronic Afib, has pacemaker. Admitted for weight loss and failure to thrive, and in the absence of any other clear medical etiology, has been presumed due to severe depression. Admits to depressed mood, anxiety and passive SI. 03/05/18 14:06 Met with patient yesterday on 03/04 for 30min. Reports she was feeling very confused and very anxious about plans around her medications this AM since there was discussion of trial off Sotolol to provide for more antidepressant med options. Patient recalls starting Wellbutrin last year, recalls this med "took the edge off...I didn't worry about everything". Thinks therapist encouraged her to see psychiatrist to find something better for her depr/anxiety/tremor. Recalls only feeling good, perhaps hopeful for medication effect, the first day she started Abilify, but thereafter not. Does not think Paxil has been helpful. States she would be interested in resuming Wellbutrin, also wants to continue Klonopin. Fills own pill organizer, reports compliance, fills meds at [facility] in [place]. However reports feeling very dependent on her , and more anxious when he is not home/around. Brief f/u phone call with Dr. Worley today- reports pt was on Wellbutrin SR 150mg and never higher, also on Klonopin for 2 weeks at time he started working with her, starting Paxil 10mg end of November 2017 , then uptitrated to 15 then 20mg by 02/16/18, with D/C of Wellbutrin at that time to simplify regimen. Would support restart of Wellbutrin, with trial for antidepressant combination therapy, again given limited medication options since on Sotalol. Abilify was added 02/25/18 at 0.5mg then 1mg since Paxil was without significant effect. MSE: Resting in bed, cachectic, fair to good eye contact, wearing glasses, hospital gown, oral-buccal tremor noted on R, nml speech vol and rate, mood depressed although also states "very anxious this morning" with discussion of trial off Sotalol, affect restricted, smiling briefly with expressing appreciation of support, denied any AH/VH or other psychotic symptoms, no responding to int stimuli, denied plan/intent to harm self although continues with passive SI. insight fair, judgment impaired. Cognition seemed conversationally intact. RECOMMENDATIONS: Discussed with hospitalist. Will hold on d/c Sotolol (which also causes pt much anxiety to consider) as other options being considered, including combination antidepr medication, inpt psych and even ECT. -Restart Wellbutrin 150mg but as XL form, in AM, Pt and have consistently reported some benefit on Wellbutrin. -Decrease Paxil to 10mg due to drug interaction causing increased level with addition of Wellbutrin, and change Paxil to HS dosing since can be sedating. Will consider other options to this med, in part due to many side effects of Paxil especially in elderly, no reported benefits and ideally would like to avoid addition of atypical antipsychotic just for augmentation since already with tremor of unknown etiology. Paxil also increases Abilify level/effect, which may take more time to clear. Monitor for any improvement in tremor off Abilify (noting tremor was present unrelated to these psychotropics). -Pharmacy will print list of all antidepressants/psychotropic meds with no QTc effects -Cont Klonopin 0.5mg BID for anxiety. Consider trial of short-acting BZD Ativan 0.5mg bid or tid prn to assess effect on anxiety and tremor. -Will t/w inpatient psychiatry and Dr. Peterson about ECT consideration. -Continue to monitor po intake, labs as indicated, weight, and participation with OT/PT. Also ST for speech-cog. -Will continue to follow. Please call with any questions. Objective: Vital Signs Temp Pulse Resp BP Pulse Ox 37.2 C 64 16 115/66 94 03/05/18 12:00 03/05/18 12:00 03/05/18 12:00 03/05/18 12:00 03/05/18 12:00 Microbiology 03/05/18 08:30 Gastrointestinal Tract Panel (PCR) - Final Stool No Organism Detected Laboratory Results 03/03/18 06:25 03/04/18 03/05/18 03/06/18 05:59 05:59 05:59 Intake Total 2400 1465 Output Total 2900 1100 400 Balance -500 365 -400 PT 24.4 SEC (12.0-15.0) H 03/05/18 05:04 INR 2.19 (0.83-1.16) H 03/05/18 05:04 - Time Spent With Patient Time Spent With Patient: 30min - Pending Discharge Pending Discharge Within 24 Hours: No Pending Discharge Within 48 Hours: No ICD10 Worksheet Patient Problems: Problems Problem Status Onset Resting tremor Acute Weakness Acute Atrial fibrillation and flutter Acute
--- NOTE | 2018-03-05 15:20 | CPEKG ---
Test Reason : OPEN Blood Pressure : / mmHG Vent. Rate : 060 BPM Atrial Rate : 060 BPM P-R Int : 192 ms QRS Dur : 088 ms QT Int : 454 ms P-R-T Axes : 124 044 057 degrees QTc Int : 454 ms Atrial-paced complexes Consider left ventricular hypertrophy Confirmed by Ronald Contreras ([id number]) on 03/05/2018 3:20:15 PM Referred By: Confirmed By:Ronald Contreras
--- NOTE | 2018-03-05 15:24 | CPEKG ---
Test Reason : OPEN Blood Pressure : / mmHG Vent. Rate : 067 BPM Atrial Rate : 067 BPM P-R Int : 169 ms QRS Dur : 087 ms QT Int : 434 ms P-R-T Axes : 079 043 050 degrees QTc Int : 458 ms Atrial-paced complexes Consider left ventricular hypertrophy Confirmed by Ronald Contreras ([id number]) on 03/05/2018 3:23:39 PM Referred By: Confirmed By:Ronald Contreras
[2018-03-05] MEDS: WARFARIN SODIUM 2.5 MG TAB PO SCH (17:14)
[2018-03-05] MEDS: TRAVOPROST Z 0.004% 2.5 ML OPHT.BTL EACHEYE SCH (19:49)
[2018-03-05] MEDS ORDERED: PARoxetine HCL 10 MG TAB PO SCH (20:00)
[2018-03-05] MEDS ORDERED: PARoxetine HCL 20 MG TAB PO SCH (21:00)
[2018-03-06 04:52] LABS: INR 2.18 (0.83-1.16); PROTIME(PATIENT) 24.3 SEC (12.0-15.0)
[2018-03-06] MEDS: SOTALOL HCL 80 MG TAB PO SCH ×2 (05:07→17:28)
[2018-03-06] MEDS: buPROPion XL 150 MG TAB PO SCH (06:31)
[2018-03-06] MEDS: clonazePAM 0.5 MG TAB PO SCH ×2 (06:32→20:43)
[2018-03-06] MEDS: BRIMONIDINE/TIMOLOL 5 ML OPHT.BTL EACHEYE SCH ×2 (07:57→17:32)
[2018-03-06] MEDS: Brinzolamide 1% 10 ml OPHT.BTL EACHEYE SCH ×3 (07:57→17:31)
[2018-03-06] MEDS ORDERED: MELATONIN 3 MG TAB PO PRN (11:49)
[2018-03-06] MEDS ORDERED: LORazepam 0.5 MG TAB PO PRN (11:50)
[2018-03-06] MEDS ORDERED: LORazepam 0.5 MG TAB PO ONE (12:00)
[2018-03-06] MEDS: CHOLECALCIFEROL VIT D3 1,000 UNITS TAB PO SCH (12:24)
[2018-03-06] MEDS: PRESERVISION AREDS2 FORMULA EYE VIT 1 EACH PO SCH (12:25)
--- NOTE | 2018-03-06 12:43 | ASMTCMCOM ---
CM Note CM Note Notes: Chart reviewed. 78 year old patient with FTT and anxiety. CM to follow. Needs TBD. Plan: TBD Date Signed: 03/06/2018 12:23 PM Electronically Signed By:Elvi Graham RN
--- NOTE | 2018-03-06 12:47 | ASMTCMCOM ---
CM Note CM Note Notes: Patient rounded on by interdisciplinary team. Dr. Bonilla present as well. Plan of care established that patient is to trial at home with HHC and if not improving then she will require admission to inpatient geropsych for more aggressive therapy. She will require Home health RN, PT and OT. Patient requesting to stay one more evening and dc tomorrow. Referral placed via allscripts. Plan: DC with [facility]. Date Signed: 03/06/2018 12:27 PM Electronically Signed By:Elvi Graham RN
--- NOTE | 2018-03-06 16:10 | HOSPPROG ---
Hospitalist Progress Note Assessment/Plan: # failure to thrive and weight loss, thought secondary to depression which has been difficult to treat. No obvious infection, normal electrolytes, tsh, B12. -neurology consult reviewed, doubts neurodegenerative process -appreciate psych input -discussed cancer screening: up to date on colon ca screening, hasn't had mammogram or pap -pt and not in favor or CT chest/abd/pelvis and believe this is related to her depression and apathy # severe depression and anxiety likely contributing to her presenting symptoms. Discussed with Dr. Bonilla, psych * CT head - no acute change * Paxil decreased to 10 mg qhs with addition of wellbutrin (the latter can increase serum concentrations of paxil), discussed with psych and pharmacy * cont klonopin, prn ativan per psych * consideration given to [facility] placement, which was recommended by psychiatry, but pt and want to go home. They agree to return for [facility] placement if her condition deteriorates at home # atrial fibrillation - currently paced rhythm, on sotalol. Some discussion about QT prolongation risk and drug interactions. At this point, Paxil and Wellbutrin are not QT prolonging drugs, thus will continue Sotalol. INR therapeutic today. * will stop sotalol if psychiatry wishes to use a drug that has QT prolonging properties (vs closely following QT segment with initiation of new drug) * reviewed EKG today, QTc 454, minimal change from prior * If she has recurrent AFib off the sotalol she could potentially get an ablation per Dr. Hernandez * Cont coumadin, pharmacy dosing # tremor. Reviewed neurology notes, doubts neurodegenerative process, recommended stopping abilify, which can exacerbate facial tremor * D/C'd abilify * cog eval done 03/01, MOCA score 27/30 # diarrhea: none here, GI pathogen panel if recurs # glaucoma: Worsening vision loss. Unfortunately this may preclude ECT treatment for above depression, but focus is currently on med management Disposition: cont inpt. Plan for d/c in am with C RN, PT, OT Subjective: Pt doing ok. Quite anxious during multi-disciplinary rounds. Eating a little better. Considered [facility] placement but pt really wants to go home. Objective: Vital Signs Temp Pulse Resp BP Pulse Ox 36.6 C 73 16 130/68 H 96 03/06/18 15:45 03/06/18 15:45 03/06/18 15:45 03/06/18 15:45 03/06/18 15:45 Microbiology 03/05/18 08:30 Gastrointestinal Tract Panel (PCR) - Final Stool No Organism Detected Laboratory Results 03/03/18 06:25 03/05/18 03/06/18 03/07/18 05:59 05:59 05:59 Intake Total 1465 1228 Output Total 1100 400 1 Balance 365 828 -1 PT 24.3 SEC (12.0-15.0) H 03/06/18 04:24 INR 2.18 (0.83-1.16) H 03/06/18 04:24 - Physical Exam Constitutional: no apparent distress Eyes: PERRL Ears, Nose, Mouth, Throat: moist mucous membranes Cardiovascular: regular rate and rhythym Respiratory: no respiratory distress Gastrointestinal: normoactive bowel sounds Skin: warm Musculoskeletal: full muscle strength Neurologic: AAOx3 Psychiatric: anxious ICD10 Worksheet Patient Problems: Problems Problem Status Onset Resting tremor Acute Weakness Acute Atrial fibrillation and flutter Acute
--- NOTE | 2018-03-06 16:55 | SOAPPROG ---
SOAP Progress Note Assessment/Plan: Assessment: 78cy CF with depr/anxiety increased over past year following son's in 2016 with recent anniversary of loss, with reported initial gradual onset of depressive symptoms a few years ago due to macular degeneration causing early group home and now with progressive vision impairment and tremor of uncertain etiology. Started antidepressant treatment about 1 year ago, with medication options limited due to QTc risks since on Sotolol (since 2007per pt) for chronic Afib, has pacemaker. Admitted for weight loss and failure to thrive, and in the absence of any other clear medical etiology, has been presumed due to severe depression. Admits to depressed mood, anxiety and passive SI. 03/05/18 14:06 Met with patient yesterday on 03/04 for 30min. Reports she was feeling very confused and very anxious about plans around her medications this AM since there was discussion of trial off Sotolol to provide for more antidepressant med options. Patient recalls starting Wellbutrin last year, recalls this med "took the edge off...I didn't worry about everything". Thinks therapist encouraged her to see psychiatrist to find something better for her depr/anxiety/tremor. Recalls only feeling good, perhaps hopeful for medication effect, the first day she started Abilify, but thereafter not. Does not think Paxil has been helpful. States she would be interested in resuming Wellbutrin, also wants to continue Klonopin. 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 However reports feeling very dependent on her , and more anxious when he is not home/around. Brief f/u phone call with Dr. Hinton today- reports pt was on Wellbutrin SR 150mg and never higher, also on Klonopin for 2 weeks at time he started working with her, starting Paxil 10mg end of November 2017 , then uptitrated to 15 then 20mg by 02/16/18, with D/C of Wellbutrin at that time to simplify regimen. Would support restart of Wellbutrin, with trial for antidepressant combination therapy, again given limited medication options since on Sotalol. Abilify was added 02/25/18 at 0.5mg then 1mg since Paxil was without significant effect. MSE: Resting in bed, cachectic, fair to good eye contact, wearing glasses, hospital gown, oral-buccal tremor noted on R, nml speech vol and rate, mood depressed although also states "very anxious this morning" with discussion of trial off Sotalol, affect restricted, smiling briefly with expressing appreciation of support, denied any AH/VH or other psychotic symptoms, no responding to int stimuli, denied plan/intent to harm self although continues with passive SI. insight fair, judgment impaired. Cognition seemed conversationally intact. RECOMMENDATIONS: Discussed with hospitalist. Will hold on d/c Sotolol (which also causes pt much anxiety to consider) as other options being considered, including combination antidepr medication, inpt psych and even ECT. -Restart Wellbutrin 150mg but as XL form, in AM, Pt and have consistently reported some benefit on Wellbutrin. -Decrease Paxil to 10mg due to drug interaction causing increased level with addition of Wellbutrin, and change Paxil to HS dosing since can be sedating. -Will consider other options to this med, in part due to many side effects of Paxil especially in elderly, no reported benefits and ideally would like to avoid addition of atypical antipsychotic just for augmentation since already with tremor of unknown etiology. Paxil also increases Abilify level/effect, which may take more time to clear. Monitor for any improvement in tremor off Abilify (noting tremor was present unrelated to these psychotropics). -Pharmacy will print list of all antidepressants/psychotropic meds with no QTc effects -Cont Klonopin 0.5mg BID for anxiety. Consider trial of short-acting BZD Ativan 0.5mg bid or tid prn to assess effect on anxiety and tremor. -Will t/w inpatient psychiatry and Dr. Peterson about ECT consideration. -Continue to monitor po intake, labs as indicated, weight, and participation with OT/PT. Also ST for speech-cog. -Will continue to follow. Please call with any questions. 03/06/18 16:24 Met with patient today, with present. Pt reports feeling better today, reports had energy for engaging with PT yesterday during day as well, and slept well last night through the night. Attributes it to the med she took last night, which was Paxil 10mg that had been held in AM and moved to HS dosing. Also perhaps with addition of Wellbutrin. Both note tremor is "less intense", unsure if due to med changes or being off Abilify. Discussed other medications, recent changes, indications, future options. States she met with weighmaster lead for consult yesterday and was encouraged. Feeling more hopeful overall. Discussed options including inpatient geropsych, and patient really wants to go home this weekend. agrees to this, with plan for LOW threshold to return to ER or call 911 and hospitalize psychiatrically if with any sxs of regressing, progressively worsening mood, weight loss and not eating, not following up with scheduled appts etc. Pt in agreement as is . ECT an option in the future as well with worsening sxs. Discussed this with rounding hospitalist team. Pt really wants to stay one more night to ensure sleep continues well and med changes are stable. Plan will be then to have home health f/u with RN, PT, OT. Pt, feeling already a bit more anxious with entire group in room, expressed more anxiety around plan for people coming over every day to her house. Reassured a schedule would be made and visits perhaps 3x/wk. Informed pt this would be very important to comply with plan as it would indicate a willingness and effort being put forth to get better, in addition to med compliance. Pt expressed understanding. Reviewed need for good nutrition, including adding Ensure or Boost supplements as recommended by dietary. She likes chocolate and pasta, so eat more of this too. Again denied desire to maintain a low body weight or intentionally restrict. Admits when very depressed and having gotten to point of feeling hopeless, she had no desire to eat and no appetite. MSE: resting in bed after having showered this AM, good eye contact, nml speech vol/rate, articulate. mood "a little better today", affect actually brighter and more engaging. still with oral-buccal tremor but notably less (although with some increase correlating with expressed anxiety). no tremor noted at rest or with intention on FNF testing in upper extremities. no psychosis, denied SI. Alert and oriented to person, place, time/date, situation, although initially stated "January" but when this month was questioned , "I meant February". RECOMMENDATIONS: -CONTINUE BUPROPION XL 150MG QAM, restarted yesterday AM. Tolerating, no QTc changes, and pt reports feeling better this AM. This is a change from prior SR formulation and restart of this med which both report some + benefit from in past. PCP noted concerns around Hyponatremia in past possibly related (although not typical for this med, there are case reports), and concerns around appetite suppression/weight loss/tremor. Both report tremor present prior to any psychotropics, and plan to improve caloric intake, with goal for weight gain. Also patient has reported decr anxiety on Wellbutrin, PCP noting less use of prn Xanax when she was on this in the past (again, not typical for this med, but there are case reports). Possible also if any Parkinsons that dopamine effects with wellbutrin help tremor. -Continue PAXIL at 10MG PO QHS. Moving Paxil to HS pt feels helped her sleep. Dose decreased due to possible incr level of this med by interaction with Wellbutrin. Also lower dose will decr adverse side effects especially with her being elderly. -ABILIFY DISCONTINUED. No problems off this med since yesterday. Less intensity of oral-buccal tremor noted today. Not sure if clearly related, but possible. Paxil does increase level of Abilify and will decrease clearance. -Outpatient PCP plans referral to movement d/o clinic at [facility] for evaluation as indicated -Will need intense HOME HEALTH CARE with RN,PT,OT services after discharge, also recommend weight be checked regularly, to monitor closely for any signs of regression/decline physically or with any further weight loss, also monitoring functioning. Informed patient that if she is not allowing these services to work with her, this would be considered serious with her lack of agreed follow- through. Consider Meals on Wheels? -Plan made with patient, and outpatient providers also hospitalist is for LOW THRESHOLD to hospitalize for INPATIENT GEROPSYCHIATRY if unable to make any progress as outpatient with agreed-upon plan, including weekly outpatient follow up with therapist, and perhaps every 2-4 weeks with outpatient psychiatry and PCP. will need to take patient to nearest ER if noting worsening symptoms of depression or any lack of follow-through, not eating, weight loss, med noncompliance, or suicidality. -Pt agreed to trial LORAZEPAM 0.25mg once daily prn for her anxiety, which if it helps could be useful for before a therapy appointment or visit by home health. -If any continued insomnia, could also use MELATONIN 3MG HS PRN. -please instruct patient and/or to call DR. HINTON , OUTPATIENT PSYCHIATRIST to schedule appointment for NEXT WEEK. per his request. -Schedule f/u with outpatient PCP in 1-2 weeks -Has appointment with OUTPATIENT THERAPIST PRATIBHA NORTH on Friday. She will NOT be able to see weekly and recommends patient find another therapist who can work with her at the level of intensity she needs. However, will see next week. -Has been eating 80% of meals in hospital when documented, and was seen by marshmallow maker. Will need supplementation like Boost or Ensure. -please call with any questions. 03/06/18 18:12 Phone call from therapist Pratibha North after she obtained verbal consent from patient. Discussed plan. Although initially with reservations, after discussion she agreed with plan, with low threshold to hospitalize, possibly with intensive outpatient program thereafter. Expressed reservations with patient's ability to follow through since has been verbally compliant in past without follow-through. Had told therapist in the past she had intentionally not been eating and hoped to . Therapist informed that she would not be able to see patient weekly or even ongoing with her level of acuity and history of noncompliance, but will f/u with patient next week after discharge. Objective: Vital Signs Temp Pulse Resp BP Pulse Ox 36.6 C 73 16 130/68 H 96 03/06/18 15:45 03/06/18 15:45 03/06/18 15:45 03/06/18 15:45 03/06/18 15:45 Laboratory Results 03/03/18 06:25 03/05/18 03/06/18 03/07/18 05:59 05:59 05:59 Intake Total 1465 1228 Output Total 1100 400 1 Balance 365 828 -1 PT 24.3 SEC (12.0-15.0) H 03/06/18 04:24 INR 2.18 (0.83-1.16) H 03/06/18 04:24 - Time Spent With Patient Time Spent With Patient: 30min - Pending Discharge Pending Discharge Within 24 Hours: No Pending Discharge Within 48 Hours: No ICD10 Worksheet Patient Problems: Problems Problem Status Onset Atrial fibrillation and flutter Acute Resting tremor Acute Weakness Acute
[2018-03-06] MEDS: WARFARIN SODIUM 2.5 MG TAB PO SCH (17:28)
[2018-03-06] MEDS ORDERED: PARoxetine HCL 10 MG TAB PO SCH (20:00)
[2018-03-06] MEDS: TRAVOPROST Z 0.004% 2.5 ML OPHT.BTL EACHEYE SCH (20:43)
[2018-03-07] MEDS ORDERED: NS 1,000 ML IV SCH (00:15)
[2018-03-07] MEDS: SOTALOL HCL 80 MG TAB PO SCH (04:13)
[2018-03-07 05:09] LABS: INR 1.96 (0.83-1.16); PROTIME(PATIENT) 22.4 SEC (12.0-15.0)
[2018-03-07] MEDS: buPROPion XL 150 MG TAB PO SCH (07:14)
[2018-03-07] MEDS: clonazePAM 0.5 MG TAB PO SCH (07:14)
[2018-03-07 07:25] VITALS: BP 185/96
--- NOTE | 2018-03-07 08:52 | PDIAF ---
- Diagnosis Diagnosis: depression / anxiety Code Status: Do Not Resuscitate - Medication Management Discharge Medications: Medications to Continue on Transfer Brimonidine/Timolol [Combigan (*)] 1 drop EACHEYE BID 02/23/14 [Last Taken 03/02] Brinzolamide 1% [AZOPT 1% (RX)] 1 drop EACHEYE TID 02/23/14 [Last Taken 03/02/18 ] C/E/Zn/Cu/OM3/DHA/EPA/LUT/ZEAX [Preservision Areds 2 Softgel] 1 each PO DAILY@ 02/23/14 [Last Taken 03/01/18] Cholecalciferol Vit D3 [Vitamin D3 (*)] 2,000 units PO DAILY@02/23/14 [Last Taken 03/01/18] Estring Vaginal Ring 1 applic VG Q90D 02/23/14 [Last Taken 02/20/14] Travoprost Z 0.004% [Travatan Z 0.004% (*)] 1 drops EACHEYE HS 02/23/14 [Last Taken 03/01/18] Sotalol HCl [SOTALOL] 120 mg PO BID 03/02/18 [Last Taken 03/02/18] clonazePAM [Klonopin (*)] 0.5 mg PO BID 03/02/18 [Last Taken 03/02/18] Melatonin [Melatonin 3 MG (*)] 3 mg PO DAILY@1999 PRN #30 tab 03/07/18 [Last Taken Unknown] PARoxetine HCL [Paxil 10mg (*)] 10 mg PO DAILY@2000 #30 tab 03/07/18 [Last Taken Unknown] Warfarin Sodium [Coumadin 2MG (*)] 3 mg PO DAILY16 #30 tab 03/07/18 [Last Taken Unknown] buPROPion XL [Wellbutrin 150mg XL] 150 mg PO DAILY@0730 #30 tab 03/07/18 [Last Taken Unknown] Discharge Medications: Refer to the Discharge Home Medication list for PRN reason. PICC Care - Routine: N/A - Orders Services needed: Home Care, Registered Nurse, Physical Therapy, Occupational Therapy Home Care Face to Face: I certify that this patient was under my care and that I had the required [id number] encounter meeting the encounter requirements on the discharge day. My findings support the fact that the patient is homebound as defined in Home Care Face to Face Continued: CMS Chapter 7 Medicare Benefits Manual 30.1.1 , The condition of the patient is such that there exists a normal inability to leave home and consequently, leaving home would require a considerable and taxing effort. Isolation Type: None Diet Recommendation: no restrictions on diet Additional Instructions: Paxil 10 mg at bedtime. Wellbutrin XL 150 mg daily. Follow up with your behavioral health team Friday as planned. Home health care. You need an INR drawn on Friday as your coumadin dose has been adjusted. Take 3 mg daily and further dose adjustment per the coumadin clinic after your INR on Friday. Follow up with Dr. Valenzuela. - Labs/Radiology BMP Date: 03/02/18 (results to dr. valenzuela) PT/INR Date: 02/23/18 (results to coumadin clinic and dr. valenzuela) - Follow Up Care Current Providers and Referrals: Grupo Valenzuela MD [Primary Care Provider] - As per Instructions
[2018-03-07] MEDS: Brinzolamide 1% 10 ml OPHT.BTL EACHEYE SCH (08:56)
[2018-03-07] MEDS: BRIMONIDINE/TIMOLOL 5 ML OPHT.BTL EACHEYE SCH (08:56)
[2018-03-07] MEDS ORDERED: WARFARIN SODIUM 3 MG TAB PO ONE (11:00)
--- NOTE | 2018-03-07 12:05 | SOAPPROG ---
SOAP Progress Note Assessment/Plan: Assessment: 78cy CF with depr/anxiety increased over past year following son's in 2016 with recent anniversary of loss, with reported initial gradual onset of depressive symptoms a few years ago due to macular degeneration causing early senior care and now with progressive vision impairment and tremor of uncertain etiology. Started antidepressant treatment about 1 year ago, with medication options limited due to QTc risks since on Sotolol (since 2007per pt) for chronic Afib, has pacemaker. Admitted for weight loss and failure to thrive, and in the absence of any other clear medical etiology, has been presumed due to severe depression. Admits to depressed mood, anxiety and passive SI. 03/05/18 14:06 Met with patient yesterday on 03/04 for 30min. Reports she was feeling very confused and very anxious about plans around her medications this AM since there was discussion of trial off Sotolol to provide for more antidepressant med options. Patient recalls starting Wellbutrin last year, recalls this med "took the edge off...I didn't worry about everything". Thinks therapist encouraged her to see psychiatrist to find something better for her depr/anxiety/tremor. Recalls only feeling good, perhaps hopeful for medication effect, the first day she started Abilify, but thereafter not. Does not think Paxil has been helpful. States she would be interested in resuming Wellbutrin, also wants to continue Klonopin. Fills own pill organizer, reports compliance, fills meds at [facility] in [place]. However reports feeling very dependent on her , and more anxious when he is not home/around. Brief f/u phone call with Dr. Hinton today- reports pt was on Wellbutrin SR 150mg and never higher, also on Klonopin for 2 weeks at time he started working with her, starting Paxil 10mg end of November 2017 , then uptitrated to 15 then 20mg by 02/16/18, with D/C of Wellbutrin at that time to simplify regimen. Would support restart of Wellbutrin, with trial for antidepressant combination therapy, again given limited medication options since on Sotalol. Abilify was added 02/25/18 at 0.5mg then 1mg since Paxil was without significant effect. MSE: Resting in bed, cachectic, fair to good eye contact, wearing glasses, hospital gown, oral-buccal tremor noted on R, nml speech vol and rate, mood depressed although also states "very anxious this morning" with discussion of trial off Sotalol, affect restricted, smiling briefly with expressing appreciation of support, denied any AH/VH or other psychotic symptoms, no responding to int stimuli, denied plan/intent to harm self although continues with passive SI. insight fair, judgment impaired. Cognition seemed conversationally intact. RECOMMENDATIONS: Discussed with hospitalist. Will hold on d/c Sotolol (which also causes pt much anxiety to consider) as other options being considered, including combination antidepr medication, inpt psych and even ECT. -Restart Wellbutrin 150mg but as XL form, in AM, Pt and have consistently reported some benefit on Wellbutrin. -Decrease Paxil to 10mg due to drug interaction causing increased level with addition of Wellbutrin, and change Paxil to HS dosing since can be sedating. -Will consider other options to this med, in part due to many side effects of Paxil especially in elderly, no reported benefits and ideally would like to avoid addition of atypical antipsychotic just for augmentation since already with tremor of unknown etiology. Paxil also increases Abilify level/effect, which may take more time to clear. Monitor for any improvement in tremor off Abilify (noting tremor was present unrelated to these psychotropics). -Pharmacy will print list of all antidepressants/psychotropic meds with no QTc effects -Cont Klonopin 0.5mg BID for anxiety. Consider trial of short-acting BZD Ativan 0.5mg bid or tid prn to assess effect on anxiety and tremor. -Will t/w inpatient psychiatry and Dr. Peterson about ECT consideration. -Continue to monitor po intake, labs as indicated, weight, and participation with OT/PT. Also ST for speech-cog. -Will continue to follow. Please call with any questions. 03/06/18 16:24 Met with patient today, with present. Pt reports feeling better today, reports had energy for engaging with PT yesterday during day as well, and slept well last night through the night. Attributes it to the med she took last night, which was Paxil 10mg that had been held in AM and moved to HS dosing. Also perhaps with addition of Wellbutrin. Both note tremor is "less intense", unsure if due to med changes or being off Abilify. Discussed other medications, recent changes, indications, future options. States she met with retort operator for consult yesterday and was encouraged. Feeling more hopeful overall. Discussed options including inpatient geropsych, and patient really wants to go home this weekend. agrees to this, with plan for LOW threshold to return to ER or call 911 and hospitalize psychiatrically if with any sxs of regressing, progressively worsening mood, weight loss and not eating, not following up with scheduled appts etc. Pt in agreement as is . ECT an option in the future as well with worsening sxs. Discussed this with rounding hospitalist team. Pt really wants to stay one more night to ensure sleep continues well and med changes are stable. Plan will be then to have home health f/u with RN, PT, OT. Pt, feeling already a bit more anxious with entire group in room, expressed more anxiety around plan for people coming over every day to her house. Reassured a schedule would be made and visits perhaps 3x/wk. Informed pt this would be very important to comply with plan as it would indicate a willingness and effort being put forth to get better, in addition to med compliance. Pt expressed understanding. Reviewed need for good nutrition, including adding Ensure or Boost supplements as recommended by dietary. She likes chocolate and pasta, so eat more of this too. Again denied desire to maintain a low body weight or intentionally restrict. Admits when very depressed and having gotten to point of feeling hopeless, she had no desire to eat and no appetite. MSE: resting in bed after having showered this AM, good eye contact, nml speech vol/rate, articulate. mood "a little better today", affect actually brighter and more engaging. still with oral-buccal tremor but notably less (although with some increase correlating with expressed anxiety). no tremor noted at rest or with intention on FNF testing in upper extremities. no psychosis, denied SI. Alert and oriented to person, place, time/date, situation, although initially stated "January" but when this month was questioned , "I meant February". RECOMMENDATIONS: -CONTINUE BUPROPION XL 150MG QAM, restarted yesterday AM. Tolerating, no QTc changes, and pt reports feeling better this AM. This is a change from prior SR formulation and restart of this med which both report some + benefit from in past. PCP noted concerns around Hyponatremia in past possibly related (although not typical for this med, there are case reports), and concerns around appetite suppression/weight loss/tremor. Both report tremor present prior to any psychotropics, and plan to improve caloric intake, with goal for weight gain. Also patient has reported decr anxiety on Wellbutrin, PCP noting less use of prn Xanax when she was on this in the past (again, not typical for this med, but there are case reports). Possible also if any Parkinsons that dopamine effects with wellbutrin help tremor. -Continue PAXIL at 10MG PO QHS. Moving Paxil to HS pt feels helped her sleep. Dose decreased due to possible incr level of this med by interaction with Wellbutrin. Also lower dose will decr adverse side effects especially with her being elderly. -ABILIFY DISCONTINUED. No problems off this med since yesterday. Less intensity of oral-buccal tremor noted today. Not sure if clearly related, but possible. Paxil does increase level of Abilify and will decrease clearance. -Outpatient PCP plans referral to movement d/o clinic at [facility] for evaluation as indicated -Will need intense HOME HEALTH CARE with RN,PT,OT services after discharge, also recommend weight be checked regularly, to monitor closely for any signs of regression/decline physically or with any further weight loss, also monitoring functioning. Informed patient that if she is not allowing these services to work with her, this would be considered serious with her lack of agreed follow- through. Consider Meals on Wheels? -Plan made with patient, and outpatient providers also hospitalist is for LOW THRESHOLD to hospitalize for INPATIENT GEROPSYCHIATRY if unable to make any progress as outpatient with agreed-upon plan, including weekly outpatient follow up with therapist, and perhaps every 2-4 weeks with outpatient psychiatry and PCP. will need to take patient to nearest ER if noting worsening symptoms of depression or any lack of follow-through, not eating, weight loss, med noncompliance, or suicidality. -Pt agreed to trial LORAZEPAM 0.25mg once daily prn for her anxiety, which if it helps could be useful for before a therapy appointment or visit by home health. -If any continued insomnia, could also use MELATONIN 3MG HS PRN. -please instruct patient and/or to call DR. HINTON , OUTPATIENT PSYCHIATRIST to schedule appointment for NEXT WEEK. per his request. -Schedule f/u with outpatient PCP in 1-2 weeks -Has appointment with OUTPATIENT THERAPIST PRATIBHA NORTH on Friday. She will NOT be able to see weekly and recommends patient find another therapist who can work with her at the level of intensity she needs. However, will see next week. -Has been eating 80% of meals in hospital when documented, and was seen by hospital personnel director. Will need supplementation like Boost or Ensure. -please call with any questions. 03/06/18 18:12 Phone call from therapist Pratibha North after she obtained verbal consent from patient. Discussed plan. Agrees with plan, and low threshold to hospitalize, possibly with intensive outpatient program thereafter. Has reservations with patient's ability to follow through since has been verbally compliant in past without follow-through. Has told Pratibha in the past she intentionally wasn't eating and hoped to . Objective: Vital Signs Temp Pulse Resp BP Pulse Ox 36.5 C 81 16 185/96 H 95 03/07/18 07:24 03/07/18 07:24 03/07/18 07:24 03/07/18 07:24 03/07/18 07:24 Laboratory Results 03/03/18 06:25 03/06/18 03/07/18 03/08/18 05:59 05:59 05:59 Intake Total 1228 702 400 Output Total 400 803 Balance 828 -101 400 PT 22.4 SEC (12.0-15.0) H 03/07/18 04:26 INR 1.96 (0.83-1.16) H 03/07/18 04:26 ICD10 Worksheet Patient Problems: Problems Problem Status Onset Atrial fibrillation and flutter Acute Resting tremor Acute Weakness Acute
--- NOTE | 2018-03-07 17:23 | GDS ---
DISCHARGE DIAGNOSES: 1. Failure to thrive with anorexia and weight loss thought secondary to depression. 2. Severe depression and anxiety. 3. Atrial fibrillation. 4. Chronic anticoagulation. 5. Tremor. 6. Glaucoma. CONSULTANTS: 1. Altagracia Bonilla MD, psychiatry. 2. Primitivo Peña DO, neurology. HISTORY: For details, please see History and Physical dated March 02, 2018. In brief, the patie nt is 78-year-old female with a long history of severe depression, anxiety, which has been difficult to manage due to medication interactions with her sotalol, which she takes for rhythm stabilization f or atrial fibrillation. She presented to the emergency department with weakness and weight loss at h ome. In addition, she was recently started on Paxil, and Abilify was added. She was admitted to the hospital for further management. HOSPITAL COURSE: Patient admitted to the med/surg unit. Serologic workup was normal, including norm al TSH and B12. Neurology consult was obtained in the setting of her orofacial tremor. It is noted that Abilify may worsen this type of tremor, and thus, Abilify was discontinued. Neurology did not believe there was any further neurodegenerative process. We discussed cancer screening. She is up to date on her colon cancer screening, but she has not had Pap smear or mammogram. The patient and her declined CT chest, abdomen, pelvis as they feel confident that her condition is related to her severe depression and anxiety, which has been worsenin g over several years. Psychiatry consult was obtained. Some consideration was given to electroconvu lsive shock therapy, though, given her history of glaucoma, it was opted to pursue medication managem ent first. She apparently done well on Wellbutrin in the past. She was re-initiated on Wellbutrin X L 150 mg daily. With this addition, her Paxil dose was decreased to 10 mg at bedtime. She has also been maintained on Klonopin 0.5 mg twice daily. Upon admission, consideration was given to discontinue sotalol given the concern for drug interaction s and QT prolongation with multiple psychiatric medications. However, neither Wellbutrin or Paxil ar e significant offenders for QT prolongation. She did have several EKGs performed after initiation of Wellbutrin, which did not reveal significant changes in her QT segment. She has had no evidence of arrhythmias here or history of arrhythmias. Therefore, she is continued on her sotalol. In addition , she is continued on her Coumadin for anticoagulation and stroke prevention. If she were to need ps ychiatric medication adjustment and required a medication that may prolonged QT segment, it is possib le she could stop her sotalol, and if she has recurrent atrial fibrillation, she may undergo ablation . She will follow up with Dr. Hernandez, her outpatient flamer sealer. Regarding her Coumadin dosing, she is nearly therapeutic with an INR of 1.96 at discharge. She will be discharged on Coumadin 3 mg daily and will have Home Health RN draw an INR on Friday. Further man agement per the Coumadin Clinic. With respect to her mental health needs, she will have close followup with her outpatient psychologis t and psychiatrist. Home Health RN and PT are ordered. Ultimately, Psychiatry did recommend placeme nt in a geriatric psychiatric facility. However, the patient and her refused this. They wis hed to proceed with the current medication regimen as they do feel like she has improved. Her intake is also improved, and her appetite is better. Everyone agrees that if her condition deteriorates, t here is a low threshold for her to be readmitted for placement in a geriatric psychiatric facility. DISPOSITION: Patient is discharged home in stable condition with Home Health RN, PT, OT. FOLLOWUP: 1. Singh Bautista MD, primary care. 2. Akira Loyd MD, her psychiatrist. DISCHARGE MEDICATIONS: Please see GTI for complete updated outpatient medication list. New medications on discharge include: Wellbutrin XL 150 mg p.o. daily, #30, no refills; melatonin 3 mg p.o. at bedtime, #30, no refills; Paxil 10 mg p.o. q.h.s., #30, no refills; warfarin 3 mg p.o. peggy ly, #30, no refills. Discontinued medications: Abilify. She will continue all other outpatient medications as previously prescribed, including Klonopin 0.5 m g p.o. b.i.d., sotalol 120 mg p.o. b.i.d., Estring vaginal ring, eye drops for her glaucoma, vitamin D3. /[id number]/MODL
--- NOTE | 2018-03-08 12:02 | ASDISCHSUM ---
Discharge Information Plan Status:Home with Home Health Medically Cleared to Leave:03/07/2018 Discharge Date:03/07/2018 10:55 AM CM D/C Disposition:Home Health Service ADT D/C Disposition:Home Health Service Projected Discharge Date:03/07/2018 11:00 AM Transportation at D/C:Family Discharge Delay Reason: Follow-Up Date:03/07/2018 11:00 AM Discharge Slot: Final Diagnosis: Placement Information Referral Type:*Home Health Care Services Referral ID:[id number] Provider Name:[facility] Address 1:[address] Address 2: City:[place] Selection Factors: State:[place] Patient Contact Information Contact Name:NOAH Relationship: Address:[address] [place] [address] City:[place] Alternate Phone: State/Zip Code:[place] [address] Email: Financial Information Financial Class:Medicare Primary Plan Desc:MEDICARE INPATIENT Primary Plan Number:[id number] Secondary Plan Desc:[employer]/MDR SUPPLEMENT Secondary Plan Number:[id number] Assessment Information [facility] CM Progress Note CM Note CM Note Notes: Chart reviewed. 78 year old patient with FTT and anxiety. CM to follow. Needs TBD. Plan: TBD Date Signed: 03/06/2018 12:23 PM Electronically Signed By:Elvi Graham RN [facility] CM Progress Note CM Note CM Note Notes: Patient admitted with weakness and FTT, has multiple medical and psychiatric issues. She is followed as an outpatient by her PCP Dr Bautista and her psychiatrist Dr Loyd. They have been working on medication reconciliation given her multiple comorbitities. Patient lives with her and was independent until recently. Per notes, her son recently and this has contributed to her ailing health. PT/OT/ASSOCIATE RESEARCH SCIENTIST have been ordered, as well as psychiatry and neurology consults. Case Management will follow for discharge planning. Date Signed: 03/03/2018 12:15 PM Electronically Signed By:Re Srivastava RN [facility] CM Progress Note CM Note CM Note Notes: Chart reviewed. Patient also seen in rounds. Medications adjusted. Per PT should have services and OT recommending SNF. Dr Bonilla in to see. She has been FTT. Needs TBD. CM to follow. Plan: TBD Date Signed: 03/04/2018 03:25 PM Electronically Signed By:Elvi Graham RN [facility] CM Progress Note CM Note CM Note Notes: Patient rounded on by interdisciplinary team. Dr. Bonilla present as well. Plan of care established that patient is to trial at home with [facility] and if not improving then she will require admission to inpatient geropsych for more aggressive therapy. She will require Home health RN, PT and OT. Patient requesting to stay one more evening and dc tomorrow. Referral placed via allscripts. Plan: DC with [facility]. Date Signed: 03/06/2018 12:27 PM Electronically Signed By:Elvi Graham RN Intervention Information
== END 2018-03-07 10:55 | disposition home health service (06) | DRG 640 ==
LOC: F1N 12:51 → OBSVTOIN 13:37
PROVIDERS: ADMIT Internal Medicine; ATTEND Internal Medicine
DX: R62.7 Adult failure to thrive (principal); F32.2 Major depressive disorder, single episode, severe without psychotic features; E43 Unspecified severe protein-calorie malnutrition; Z68.1 Body mass index [BMI] 19.9 or less, adult; F40.01 Agoraphobia with panic disorder; R19.7 Diarrhea, unspecified; R25.1 Tremor, unspecified; I48.91 Unspecified atrial fibrillation; I10 Essential (primary) hypertension; E78.5 Hyperlipidemia, unspecified; H40.9 Unspecified glaucoma; Z87.891 Personal history of nicotine dependence; Z95.0 Presence of cardiac pacemaker; Z87.01 Personal history of pneumonia (recurrent); Z79.01 Long term (current) use of anticoagulants
CPT/HCPCS: 84134-90; 84484-PO; 92523-GN; 97110-GP; 97116-GP; 97162-GP; 97166-GO; 97530-GP; 97535-GO; G0515-GO; G8978-GP-CJ; G8979-GP-CI; G8987-GO-CL; G8988-GO-CI; G9168-GN-CH; G9169-GN-CH; G9170-GN-CH

== ENCOUNTER 2018-03-11 13:59 | Inpatient (IN) | payer OTHER, MEDICARE ==
--- NOTE | 2018-03-11 16:40 | EDPHY ---
H & P Stated Complaint: depression /denies SI/seen friday for same Source: Patient, Family (), Old records Exam Limitations: Clinical condition - Personal History Current Tetanus Diphtheria and Acellular Pertussis (TDAP): Yes - Medical/Surgical History Hx Asthma: No Hx Chronic Respiratory Disease: No Hx Diabetes: No Hx Cardiac Disease: Yes Hx Renal Disease: No Hx Cirrhosis: No Hx Alcoholism: No Hx HIV/AIDS: No Hx Splenectomy or Spleen Trauma: No Other PMH: hysterectomy 1968, pneumonia in 2000, adhesion surgery, sotolol therapy. afib, tachycardia, pacemaker, depression/anxiety, glaucoma, HTN, - Social History Smoking Status: Former smoker Time Seen by Provider: 03/11/18 16:37 HPI/ROS: HPI: This is a 78-year-old female who presents with Chief Complaint: Worsening depression Location: psych Quality: Depression Duration: Years Signs and Symptoms: no auditory hallucinations, no visual hallucinations, no suicidal ideation with a plan, no homicidal ideation, no paranoia Timing: Acute on chronic Severity: Severe Context: Patient has a history of failure to thrive with anorexia and weight loss secondary to severe major depression and generalized anxiety disorder, atrial fibrillation on Coumadin, tremor presents accompanied by her with complaints of worsening severe depression despite psychiatric medication change and outpatient psychiatric follow-up. Patient was admitted to the hospital on 03/02/2018 and discharged this Friday on 03/07/2018. During admission was recommended that patient be admitted to an inpatient psychiatric facility for further care. Patient and declined and wished to follow up outpatient. They report that her condition is not improving and is in fact worsening and they are requesting inpatient psychiatric treatment at this time. Her psychiatric medications include clonazepam, paroxetine, bupropion. She has been compliant with these medications. Patient denies any suicidal ideation but reports that "she has prayed to God that he ends her life." Modifying Factors: See above Comment: ROS: A comprehensive 10 system review of systems is otherwise negative aside from elements mentioned in the history of present illness. MEDICAL/SURGICAL/SOCIAL HISTORY: Medical/surgical history: hysterectomy 1968, pneumonia in 2000, adhesion surgery, sotolol therapy afib, tachycardia, pacemaker, depression/anxiety, glaucoma, HTN Social history: Family history noncontributory. CONSTITUTIONAL: Petite, cachectic elderly white female, at bedside, awake and alert, no obvious distress HEENT: Atraumatic and normocephalic, PERRL, EOMI. Nares patent; no rhinorrhea; no nasal mucosal edema. Tympanic membranes clear. Oropharynx clear, no exudate and moist pink mucosa. Airway patent. No lymphadenopathy. No meningismus. Cardiovascular: Normal S1/S2, regular rate, regular rhythm, without murmur rub or gallop. PULMONARY/CHEST: Symmetrical and nontender. Clear to auscultation bilaterally. Good air movement. No accessory muscle usage. ABDOMEN: Soft, nondistended, nontender, no rebound, no guarding, no peritoneal signs, no masses or organomegaly. No CVAT. EXTREMITIES: 2/2 pulses, strength 5/5, no deformities, no clubbing, no cyanosis or edema. NEUROLOGICAL: no focal neuro deficits. GCS 15. Essential tremors noted. Slow speech pattern SKIN: Warm and dry, pallor, thin, no erythema. no rash. Fair capillary refill. PSYCH: Flat affect, Poor eye contact, no flight of ideas, relatively organized thought process, poor insight and judgment, no auditory hallucinations, no visual hallucinations, no suicidal ideation with a plan, no homicidal ideation, no paranoia (Breonna,Terra) Constitutional: Initial Vital Signs Temperature (C) 36.6 C 03/11/18 14:04 Heart Rate 62 03/11/18 14:04 Respiratory Rate 17 03/11/18 14:04 Blood Pressure 93/61 L 03/11/18 14:04 O2 Sat (%) 95 03/11/18 14:04 O2 Delivery Mode Room Air Allergies/Adverse Reactions: No Known Allergies Allergy (Verified 03/02/18 11:30) Home Medications: Medication Instructions Recorded Brimonidine/Timolol [Combigan (*)] 1 drop EACHEYE BID 02/23/14 Brinzolamide 1% [AZOPT 1% (RX)] 1 drop EACHEYE TID 02/23/14 C/E/Zn/Cu/OM3/DHA/EPA/LUT/ZEAX 1 each PO DAILY@12 02/23/14 [Preservision Areds 2 Softgel] Cholecalciferol Vit D3 [Vitamin D3 2,000 units PO DAILY@02/23/14 (*)] Estring Vaginal Ring 1 applic VG Q90D 02/23/14 Travoprost Z 0.004% [Travatan Z 1 drops EACHEYE HS 02/23/14 0.004% (*)] Sotalol HCl [SOTALOL] 120 mg PO BID 03/02/18 clonazePAM [Klonopin (*)] 0.5 mg PO BID 03/02/18 Melatonin [Melatonin 3 MG (*)] 3 mg PO DAILY@1999 PRN #30 tab 03/07/18 PARoxetine HCL [Paxil 10mg (*)] 10 mg PO DAILY@2000 #30 tab 03/07/18 Warfarin Sodium [Coumadin 2MG (*)] 3 mg PO DAILY16 #30 tab 03/07/18 buPROPion XL [Wellbutrin 150mg XL] 150 mg PO DAILY@0730 #30 tab 03/07/18 Medical Decision Making - Diagnostics EKG Interpretation: 12-lead EKG interpreted by me; official reading is in computer system. My interpretation is atrial pacing rate of 60, LVH. (William Nichole) ED Course/Re-evaluation: Patient is voluntarily requesting mental health evaluation inpatient psychiatric admission for severe major depression with suicidal ideation. Labs and UDS ordered. Labs reviewed and medically clear for mental health evaluation. 1845: Informed by Psychiatry that they agree with inpatient psychiatric placement. Looking for placement. EKG performed and interpreted by Dr. Nichole. Patient accepted for transfer to [address] [place] [address]. EMTALA completed per Dr. Nichole. This patient was seen under the supervision of my secondary supervising physician. I evaluated care for this patient independently. Discussed this patient with Dr. Nichole. (Lety Ravi) Differential Diagnosis: Differential diagnosis includes but is not limited to electrolyte imbalance, failure to thrive, severe major depression, suicidal ideation. (Lety Ravi) Other Provider: PHYSICIAN DOCUMENTATION: The patient was evaluated and managed by the Physician Veterinary Virologist and myself. I have reviewed the chart and agree with the findings and plan of care as documented. In addition, I examined the patient myself at 1930. History confirmed as severe depression. Physical findings as follows: Alert, mildly tremulous at rest, follows commands and answers question. EKG performed at Dr. Espino request. The patient will be transferred to [facility] for inpatient psychiatric hospital bed not available at this facility, in stable condition; accepting physician is Dr. JASKARAN SIDDIQUI. EMTALA form completed. I am the secondary supervising physician. (William Nichole) - Data Points Laboratory Results: Laboratory Results 03/11/18 17:05 03/11/18 17:05 03/11/18 03/11/18 03/11/18 17:45 17:05 17:05 WBC RBC Hgb Hct MCV MCH MCHC RDW Plt Count MPV Neut % (Auto) Lymph % (Auto) [place] % (Auto) Eos % (Auto) Baso % (Auto) Nucleat RBC Rel Count Absolute Neuts (auto) Absolute Lymphs (auto) Absolute Monos (auto) Absolute Eos (auto) Absolute Basos (auto) Absolute Nucleated RBC Immature Gran % Immature Gran # PT 16.0 SEC H SEC (12.0-15.0) INR 1.26 H (0.83-1.16) Sodium 138 mEq/L mEq/L (135-145) Potassium 4.1 mEq/L mEq/L (3.3-5.0) Chloride 103 mEq/L mEq/L (97-110) Carbon Dioxide 26 mEq/l mEq/l (22-31) Anion Gap 9 mEq/L mEq/L (8-16) BUN 23 mg/dL mg/dL (7-23) Creatinine 0.7 mg/dL mg/dL (0.6-1.0) Estimated GFR > 60 Glucose 81 mg/dL mg/dL (70-100) Calcium 10.1 mg/dL mg/dL (8.5-10.4) Urine Opiates Screen NEGATIVE (NEGATIVE) Urine Barbiturates NEGATIVE (NEGATIVE) Ur Phencyclidine Scrn NEGATIVE (NEGATIVE) Ur Amphetamine Screen NEGATIVE (NEGATIVE) U Benzodiazepines Scrn NEGATIVE (NEGATIVE) Urine Cocaine Screen NEGATIVE (NEGATIVE) U Marijuana (THC) Screen NEGATIVE (NEGATIVE) Ethyl Alcohol < 10 mg/dL mg/dL (0-10) 03/11/18 17:05 WBC 5.04 10^3/uL 10^3/uL (3.80-9.50) RBC 4.40 10^6/uL 10^6/uL (4.18-5.33) Hgb 13.7 g/dL g/dL (12.6-16.3) Hct 40.7 % % (38.0-47.0) MCV 92.5 fL fL (81.5-99.8) MCH 31.1 pg pg (27.9-34.1) MCHC 33.7 g/dL g/dL (32.4-36.7) RDW 13.0 % % (11.5-15.2) Plt Count 222 10^3/uL 10^3/uL (150-400) MPV 10.2 fL fL (8.7-11.7) Neut % (Auto) 61.5 % % (39.3-74.2) Lymph % (Auto) 22.0 % % (15.0-45.0) [place] % (Auto) 12.9 % % (4.5-13.0) Eos % (Auto) 2.8 % % (0.6-7.6) Baso % (Auto) 0.6 % % (0.3-1.7) Nucleat RBC Rel Count 0.0 % % (0.0-0.2) Absolute Neuts (auto) 3.10 10^3/uL 10^3/uL (1.70-6.50) Absolute Lymphs (auto) 1.11 10^3/uL 10^3/uL (1.00-3.00) Absolute Monos (auto) 0.65 10^3/uL 10^3/uL (0.30-0.80) Absolute Eos (auto) 0.14 10^3/uL 10^3/uL (0.03-0.40) Absolute Basos (auto) 0.03 10^3/uL 10^3/uL (0.02-0.10) Absolute Nucleated RBC 0.00 10^3/uL 10^3/uL (0-0.01) Immature Gran % 0.2 % % (0.0-1.1) Immature Gran # 0.01 10^3/uL 10^3/uL (0.00-0.10) PT INR Sodium Potassium Chloride Carbon Dioxide Anion Gap BUN Creatinine Estimated GFR Glucose Calcium Urine Opiates Screen Urine Barbiturates Ur Phencyclidine Scrn Ur Amphetamine Screen U Benzodiazepines Scrn Urine Cocaine Screen U Marijuana (THC) Screen Ethyl Alcohol Departure - Departure Disposition: [facility] IP Clinical Impression: Severe major depression without psychotic features, Verbalizes suicidal thoughts Condition: Fair
[2018-03-11 17:24] LABS: PLATELET COUNT 222 10^3/uL (150-400)
[2018-03-11 17:30] LABS: INR 1.26 (0.83-1.16)
--- NOTE | 2018-03-11 19:45 | CPEKG ---
Test Reason : OPEN Blood Pressure : / mmHG Vent. Rate : 060 BPM Atrial Rate : 061 BPM P-R Int : 189 ms QRS Dur : 084 ms QT Int : 432 ms P-R-T Axes : 062 046 047 degrees QTc Int : 432 ms Atrial-paced rhythm Consider left ventricular hypertrophy Confirmed by William Nichole ([id number]) on 03/11/2018 7:44:45 PM Referred By: Confirmed By:William Nichole
--- NOTE | 2018-03-11 19:52 | ASMTTCLDSP ---
TLC Discharge Disposition Disposition: Answers: Admit Disposition Notes: Notes: Major Depressive Disorder, recurrent, severe 296.33 (F33.2) Unspecified Anxiety Disorder 300.00 (F41.9) Discharge Concerns/Recommendations: Notes: In consultation with [facility] ED physician, William Nichole MD and on-call psychiatrist, Darío Rain MD, both concurred that pt appears to meet criteria requiring psychiatric hospitalization as pt appears to be at risk of harm to self/ due to a mental illness condition. Pt was given the 3N prohibited belongings list while in the ED. Was patient given the Answers: Yes Inpatient Behavioral Health Prohibited Belongings List while in the ED? For inpatient Darío Rain admission, the following psychiatrist agreed to accept patient for admission to Behavioral Health ([facility]): Date Signed: 03/11/2018 07:52 PM Electronically Signed By:Komal Cerna
--- NOTE | 2018-03-11 20:09 | ASMTTLCEVL ---
TLC Evaluation - Basic Information Evaluation Start Date and 03/11/2018 06:00 PM Time Hospital Status Answers: Voluntary Patient statement Notes: Im here for depression and anxiety with severe tremors. I was told to go inpatient when I was here before. It is not working at home so I am back. Narrative Notes: Pt is a 78 year old, , female who self presented to the [facility] ED voluntarily with her with chief complaint of worsening depression. Pt has a hx of failure to thrive with anorexia and weight loss secondary to severe depression and generalized anxiety, atrial fibrillation on Coumadin. Pt has experienced increased symptoms of depression despite psychiatric medications and outpatient follow up. Pt was recently at [facility] on the medical floor from 03/02-03/07/18. During her hospital stay psychiatric inpt admission had been recommended but pt and had declined instead requesting to f/u with outpt treatment. Pts condition however since returning home has apparently declined so now pt returned to the ED to seek inpt BH admission. Pt reports she has been compliant with prescribed medications. Pt reported experiencing passive suicidal ideations. Pt presented with flat affect, poor eye contact, poor judgment, and denied any hallucinations. Diagnosis History Notes: Per prior Psychiatrist report pt started experiencing increased depression and anxiety over the past year following the of her son in January of 2017 with recent anniversary of loss with reported gradual onset of depressive symptoms a few years ago due to macular degeneration causing early group home and now with progressive vision impairment and tremor of uncertain etiology. Pt started taking antidepressant medication about 1 year ago with medications options limited due to prescribed medications for chronic atrial fib and pacemaker. Pt was recently admitted to [facility] for weight loss and failure to thrive with absence of any other clear medical etiology has been presumed to be severe depression. Pt had admitted to depressed mood, anxiety and passive SI. Prior suicide attempts Notes: Pt denied any prior suicide attempts. Prior hospitalizations Notes: No prior history of past inpt admissions for mental health treatment. Treatment Responses Notes: Pt experienced minimal response to starting medications for depression about 1 year ago. History of violence Notes: Pt denied any prior history of violence either as a victim or aggressiveness towards others. Psychiatrist: Akira Loyd. Medications (name, dosage, route, freq uency) Notes: Home medications include: glaucoma eye drops, vitamin D3, Estring Vaginal Ring, Sotalol 120mg PO BID, Klonopin 0.5 PO BID, Melatonin 3 mg PO Daily PRN, Paxil 10 mg PO daily, Coumadin 3 mg PO daily, Wellbutrin 150 mg PO Daily. Allergies/Reaction Notes: No known allergies were reported. Sleep Notes: Pt stated she has experienced difficulty sleeping only about 5 hours a night with naps during the day. Appetite Notes: Pt reports poor appetite or motivation to eat. In her past hospital stay she was diagnosed with failure to thrive. Pt reported about a 20 lb weight loss over the past year. Medical/Surgical history Notes: Past hx of a hysterectomy in 1968, pneumonia in 2000 adhesion surgery and sotolol therapy. Pt has a medical hx of afib, tachycardia, pacemaker, depression, anxiety, glaucoma and HTN. Substance use history (frequency, intensity, his tory, duration) Notes: Pt denied any hx of substance abuse/use and reported she seldom drinks alcohol about 1-2 times a year. Family composition Notes: Pt has been for 39 years. Need for family Answers: Yes participation in patient's care Family psychiatric/substance abuse history Notes: Only family history was her brother who had early onset Alzheimers disease. Developmental history Notes: Pt denied any developmental delays including no hx of ADD or ADHD. Pt also denied any history of concussions, LOC or head injuries. Abuse concerns Answers: None Marital status/children Notes: Pt is the mother of 2 step children. Her son 1 year ago and their daughter lives in [place]. Living situation Notes: Pt lives with her . Pt has lived in [facility] since [facility]. Sexual history/orientation Notes: Pt is and is a heterosexual. Peer support/family strengths Notes: Pt stated she has been isolating herself and avoiding friends over the past year. Education level/history Notes: Pt completed high school. Work history Notes: Pt retired earlier due to health problems in 2013. 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 Notes: Pt has no hx. Legal Notes: Pt denied any current or past legal problems. Tenriism/Spiritual Notes: Pt identifies herself as a Sikhism but has not attended any congregation services or activities in the past year due to increased isolative behaviors. Leisure Notes: Pt stated her life has been very isolative due to her increased depression. Pt also stated given loss of her eye sight she felt unable to participate in daily household tasks. Collateral Notes: Collateral inform was abtained from previous hosptial stay and present in pt's hospital room. Patient's strengths Answers: Good Friend to Others (Please select at least TWO strengths): Good Parent Honest Supportive Family Willingness [facility] Evaluation - Mental Status Exam Eye Contact: Answers: Avoiding Intermittent Mood: Answers: Depressed Sad Affect: Answers: Anxious Apprehensive Flat Indifferent Nervous Sad Subdued Behavior: Answers: Cooperative Anxious Fearful Speech: Answers: Clear Coherent Soft Thought Process: Answers: Organized Oriented Intact Insight: Answers: Fair Judgement: Answers: Fair Depression Answers: Difficulty Concentrating Signs/Symptoms: Diminished Interest Diminished Pleasure Flat Affect Hopelessness Sad Mood Withdrawn Worthlessness Anxiety Signs/Symptoms Answers: Generalized Anxiety Hallucinations: Answers: None Current Stage of Change Answers: Action Pt reported to have Answers: Yes suicidal/self-injuring ideation/behavior? Pt reported to be making Answers: No suicidal/self-injuring threats? Pt reported to have Answers: No aggression/assault ideation/behavior? Pt reported to be making Answers: No aggression/assault threats? Pt exhibits inability to Answers: No care for self/grave disability? Ideation/behavior is Answers: Yes chronic? Patient has a specific Answers: No plan? Ideation involves Answers: Yes serious/lethal intent? Ideation has Answers: No delusional/hallucinatory content? History of Answers: No suicidal/self-injuring ideation, behavior, or threats? History of Answers: No aggressive/assaultive ideation, behavior, or threats? History of serious Answers: No physical harm to self/others while in treatment setting? [facility] Evaluation - Suicide/Homicide Risk Suicide Risk Factors: Answers: Anxiety/Panic, Severe Flat Affect Global Insomnia Hopelessness Major Depression Recent of Loved One Serious Health Issue w/ Functional Impairment None Current Suicidal Answers: Yes Ideation? Current Suicidal Ideation Answers: Yes in the Past 48 Hours? Current Suicidal Ideation Answers: Yes in the Past Month? Suicide Internal Answers: Absence of Psychosis Protective Factors: Suicide External Answers: Positive Therapeutic Protective Factors: Relationships Social Support Ranking of patient's Answers: Moderate suicidal risk: Ranking of patient's Answers: Low homicidal risk: [facility] Evaluation - Wrap-up BDI Total Score: 13 BDI Question #2 Score: 1 BDI Question #9 Score: 1 BSS Total Score: 1 AXIS I Diagnosis (include DSM-V and ICD-10 codes), must also be entered in [employer], which is the source of truth. Notes: Major Depressive Disorder, recurrent, severe 296.33 (F33.2) Unspecified Anxiety Disorder 300.00 (F41.9) Evaluation End Date and 03/11/2018 08:05 PM Time (HH:RAINE): Date Signed: 03/11/2018 08:08 PM Electronically Signed By:Komal Cerna
[2018-03-11] MEDS ORDERED: LORazepam 0.5 MG TAB PO PRN (22:47)
[2018-03-11] MEDS ORDERED: NICOTINE POLACRILEX 2 MG GUM B PRN (22:47)
[2018-03-11] MEDS ORDERED: ACETAMINOPHEN 325 MG TAB PO PRN (22:47)
[2018-03-11] MEDS ORDERED: MAG HYDROX/AL HYDROX/SIMETH 30 ML UDCUP PO PRN (22:47)
[2018-03-11] MEDS ORDERED: MAGNESIUM HYDROXIDE 30 ML UDCUP PO PRN (22:47)
[2018-03-12] MEDS: clonazePAM 0.5 MG TAB PO SCH ×3 (00:41→19:37)
[2018-03-12] MEDS: BRIMONIDINE/TIMOLOL 5 ML OPHT.BTL EACHEYE SCH ×3 (00:41→18:31)
[2018-03-12] MEDS: Brinzolamide 1% 10 ml OPHT.BTL EACHEYE SCH ×4 (00:41→19:37)
[2018-03-12] MEDS: SOTALOL HCL 80 MG TAB PO SCH ×2 (06:00→18:30)
[2018-03-12] MEDS: buPROPion XL 150 MG TAB PO SCH (07:35)
--- NOTE | 2018-03-12 09:15 | ASMTBHMTP ---
Master Treatment Plan Master Treatment Plan Answers: Depressed Mood with for: Suicidal Ideation Date: 03/05/2018 Diagnosis on Admission: major depressive disorder recurrent severe Expected length of stay: 3-5 days Reason for admission: Notes: Pt is a 8 yo female with report or increased depression with anxiety and panic attacks who was admitted voluntarily for cc of increased depression, anxiety/panic, si, and failure to thrive. Pt has past hx of psychiatric tx post the passing of her son last year in January Patient's stated presenting problems: Notes: " I have been feeling very depressed, and I have these periods where I feel very anxious and am feeling fearful" " I would not mind if it God would take me" Patient's goals for treatment: Notes: 1. Improve mood and eliminate thoughts of si 2. To get stronger, mentallly and physically to maintain independence 3. Learn Coping skills to manage anxiety 4. 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 Patient would like to d/c home with outside providers, and will need assistance finding a new provider for counseling as she prior one has discontinued care. Suicidal ideation will resolve and patient will hvae a plan to safely manage recurrent suicidal ideation. Initial disposition plan/considerations: Notes: Pt will be receiving physical rehabilitation care as indicated while IP psych . Will review home needs. Master Treatment Plan Required Signatures Psychiatrist signature: Answers: Psychiatrist: RN on-shift signature: Answers: RN: Patient signature: Answers: Patient: Date Signed: 03/12/2018 09:15 AM Electronically Signed By:Kaylene Vieyra
--- NOTE | 2018-03-12 11:38 | ASMTBHDC ---
Notes Note: Notes: Patient release to speak with her and primary med care manager. Spoke with Terrence [phone] cell who is in agreement to seek placement with [facility] due to failure to thrive. works fulltime Sent referrals to [facility] Date Signed: 03/12/2018 11:38 AM Electronically Signed By:Kaylene Vieyra
--- NOTE | 2018-03-12 12:38 | BCON ---
INTERNAL MEDICINE CONSULTATION REFERRING PHYSICIAN: Dr. Rain REASON FOR REFERRAL: Medical clearance for inpatient behavioral health stay. HISTORY OF PRESENT ILLNESS: This patient came to the emergency department with her with suicidal ideation. She had recently been hospitalized for weakness, and she was noted to be depressed. She had a psychiatric consultation at that point. She had a neurologic consultation for tremor, and head CT was done. Tremor was not considered likely to be parkinsonian or related to neurodegenerative disease. She was home for several days and was failing to thrive, not eating, and feeling suicidal, so she was admitted to the inpatient behavioral health unit for further psychiatric care. She currently is without acute complaints. She reports that during her hospitalization, she was eating a lot more and gained several pounds. Otherwise , she has been losing weight over a period of months likely due to depression. In the hospital, Paxil, which she had been taking, was reduced. Abilify was stopped due to possible effect of causing tremor, and she was begun on Wellbutrin. She is otherwise without complaints. PAST MEDICAL HISTORY: 1. Atrial fibrillation. 2. Hypertension. 3. Glaucoma. PAST SURGICAL HISTORY: She has had a pacemaker placement. MEDICATIONS: Prior to admission. 1. Sotalol 120 mg p.o. b.i.d. 2. Melatonin 3 mg p.o. q. day at h.s. 3. Cholecalciferol 2000 units p.o. q. day. 4. PreserVision multivitamin 1 p.o. q. day. 5. Brinzolamide 1% 1 drop each t.i.d. 6. Brimonidine/timolol 1 drop each eye b.i.d. 7. Clonazepam 0.5 mg p.o. b.i.d. 8. Bupropion XL 150 mg p.o. q. day. 9. Warfarin 3 mg p.o. q. day. 10. Travoprost 0.004% 1 drop each eye at h.s. 11. Paroxetine 10 mg p.o. q. day at h.s. ALLERGIES: There are no known drug allergies. SOCIAL HISTORY: She lives with her . She is a nonsmoker. She has a daughter who lives in [place]. She had a son who in the past year. 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 FAMILY HISTORY: Noncontributory. REVIEW OF SYSTEMS: She reports weight gain. She still has tremor. She has some weakness but feels that she is starting to get stronger. She ambulates with a walker. She lives in a multistory home with multiple steps. She has walkers on 2 different levels. She had a fall approximately 3 weeks ago at home. She denies nausea, vomiting, constipation, or diarrhea. She denies fevers or chills. She denies cough or dyspnea. Otherwise, a 10-point review of systems is negative. PHYSICAL EXAM: VITAL SIGNS: Blood pressure is 170/93, heart rate is 74, respiratory rate is 16, oxygen saturation is 96% on room air, temperature is 37.1 degrees centigrade. Her weight is 39.9 kg for a body mass index of 16.1. GENERAL: This is a very thin woman sitting in a chair, dressed in street clothes, cooperative, and in no acute distress. HEENT: Extraocular movements are intact. Pupils are equal, round, and reactive to light. Mucous membranes are moist. Dentition is in good condition. She has an uncrowded airway, Mallampati class 1. NECK: Supple. HEART: There is regular rate and rhythm with no murmurs, rubs, or gallops. LUNGS: Clear to auscultation bilaterally. ABDOMEN: Benign. EXTREMITIES: There is no cyanosis, clubbing, or edema. NEUROLOGIC: She is alert and oriented x3. Cranial nerves 2-12 are grossly intact. There is no focal weakness. Sensation is intact to light touch. She is able to arise from a chair without assistance. Gait was not tested. She has a resting tremor of the hands and legs symmetric. There is no rigidity. There is no bradykinesia. Though she has somewhat depressed affect, she also is able to have full facies during conversation. LABORATORY STUDIES: From yesterday, CBC was normal. INR was subtherapeutic at 1.26. Serum chemistry revealed normal renal function and electrolytes. Liver functions were normal. Toxicology screen in the serum was negative for ethyl alcohol, and the urine was negative for substances of abuse. ASSESSMENT/RECOMMENDATIONS: 1. Mental health issues pending further evaluation and management per Psychiatry and the mental health team. 2. Atrial fibrillation with rhythm control with sotalol and on anticoagulation with warfarin. She has had a pacemaker placement as well, and she is not currently tachycardic or bradycardic. 3. Cachexia likely due to primary psychiatric state. She has already had some weight gain while she was recently hospitalized. A supervising fire marshal consult is pending , and this is appropriate. 4. Hypertension, not on any antihypertensive medications at present. However, she also had a very low blood pressure yesterday evening of 97/51. I will order orthostatic blood pressure determination as well as pulse. If she is orthostatic, then there should be some caution regarding prescribing antihypertensive medications. She might benefit from short-acting blood pressure medication to reduce supine hypertension at night. 5. Glaucoma. Continue current eye drops. I see no medical contraindications to this patient's continued stay on the inpatient behavioral health unit or to any psychiatric medications or procedures. Thank you very much for including me in the care of this patient and please do not hesitate to contact me or the hospitalist service should there be any need for further medical evaluation. /[id number]/MODL MTDD
[2018-03-12] MEDS: CHOLECALCIFEROL VIT D3 1,000 UNITS TAB PO SCH (12:56)
[2018-03-12] MEDS: PRESERVISION AREDS2 FORMULA EYE VIT 1 EACH PO SCH (12:56)
--- NOTE | 2018-03-12 13:43 | ASMTCMCOM ---
CM Note CM Note Notes: M/T Stabilize Mood Met with patient for initial assessment and treatment planning. Pt appears aaox3, with tremor. She resides with her who works time clerk and she is alone during the day. She states that her feelings of depression have worsened as well as feeling "panic attacks" in the last few weeks. She was recently admitted to [facility] and was advised to return to hospital if sx's worsened. She admits to some passive si in the range of feeling periodically hopeless, no plan, no hi ah/vh and no apparent RIS at this time. She states she has difficulty sleeping and would like help with that along with mood improvement as well as overall strengthening. She walks with a shuffled gait, and independently ambulates, patient has glaucoma / has low vision. patient gave permission to speak with her provider and . She states she has a counselor who has recently quit practice, and that she continues to have a med prescriber. Date Signed: 03/12/2018 01:43 PM Electronically Signed By:Kaylene Vieyra
--- NOTE | 2018-03-12 14:03 | BAPA ---
DATE OF SERVICE: 03/12/2018 CHIEF COMPLAINT: "I have tremors." HISTORY OF PRESENT ILLNESS: The patient is a 78-year-old female, with a history of an appr oximate 1 year decline in health and functioning, who was recently in our facility due to failure to thrive from 03/02/2018 until 03/07/2018. During the course of that treatment, she was seen by Dr. Carmen Bonilla from our service in consultation on the medical floor, and Dr. Bonilla reviewed the case wi th me on several occasions. I also reviewed her chart then and I have reviewed it again now, to refr esh my memory. She apparently had increasing symptoms of anxiety with occasional panic attacks and o verall declining mood with a prominent presentation of depression for the past year. Her energy and motivation have declined, and she has reportedly begun spending most of her time in bed. She reports a disturbed sleep cycle over this same time, going to bed at 8:00 at night and waking up at between 1 and 2 in the morning, and then staying up for the rest of the night. She states that prior to a ye ar ago, she had a normal sleep cycle. She also states that she did not suffer from any identifiable depressive or anxiety syndrome prior to approximately 1 year ago. She has also had significant weigh t loss. Decreasing from approximately 115 to 120 pounds, to her most recent weight at 87 pounds. Sh e was actually lower than that when she first arrived to the inpatient unit. I am having trouble fin ding the exact numbers in the record, but she had a BMI of 15. She states that she eats and does not know why she would have lost so much weight. A full workup for metabolic and metastatic processes w as negative when she was in the hospital. She also reports the development of a tremor that is coars e and throughout her body. She also has some abnormal oral movements that were evaluated by Neurolog y while she was in the hospital and thought to have no degenerative focus. It was questioned whether they might be related to a brief trial of Abilify, though I believe this to be unlikely. The patien t was ultimately discharged from the medical service and Dr. Bonilla had recommended that she might go to a geriatric psychiatric program where she could receive physical and occupational therapies, re-f eeding and some observation of her mood. The patient and her declined this, and she returned home. Once at home, she reportedly spent most of her time in bed, was not functioning, was not eati ng, was not caring for herself and her brought her back to the emergency department yesterday afternoon and she was admitted to our service for further treatment. When asked today what her goal s are for treatment, she is focused on her tremors and her need for physical and occupational therapi es. She states she is eating just fine and does not see that as a problem, and is surprised when I m ention that she needs to gain weight. She does not include any mental health complaints except when asked if she had any, she mentions anxiety and panic attacks. She also mentions her disordered sleep . PAST PSYCHIATRIC HISTORY: As above. She had trials of Wellbutrin, Paxil, and Abilify over the last several months. These were all at very small doses. The Wellbutrin was actually the SR preparation at 150 mg once a day and the Paxil has been increased as high as 20 mg. She was treated initially by her primary care physician, Dr. Bautista, but has recently also been seen by Dr. Srikanth Loyd. Abner Loyd started the Paxil and was in communication with Dr. Bonilla during the inpatient stay, voic ing his support for continuing it. ALLERGIES: No known medical allergies. CURRENT MEDICATIONS: Combigan eye drops 1 drop in each eye twice a day, Azopt eyedrops 1 in each eye 3 times a day, Wellbutrin XL 150 mg a day, PreserVision soft gels 1 daily, vitamin D3 2000 units peggy ly, clonazepam 0.5 mg twice daily, melatonin 3 mg at 2000, Paxil 10 mg daily, sotalol 120 mg twice da francesca, Travatan eye drops 1 in each eye at bedtime, and Coumadin 3 mg daily at 1600. PAST MEDICAL HISTORY: Significant for macular degeneration, glaucoma, atrial fibrillation, pacemaker , hypertension, dyslipidemia, vitamin D deficiency, chronic vaginal enterocele, hysterectomy and star vation. SOCIAL HISTORY: The patient has been to her for 39 years. She was prior to that for approximately 14 years. She has no children of her own, though had 2 children she raised wi th her . Her daughter Margaret lives in [place], and they also had a son, Maykel, who lived locally. He was diagnosed with renal carcinoma last summer and of this in January. This was a significan t traumatic event for the patient that she still grieves about. 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 SUBSTANCE ABUSE HISTORY: Noncontributory. FAMILY HISTORY: Father may have been alcoholic. Her youngest brother of early Alzheimer diseas e. ADMITTING LABORATORY: CBC was normal. Serum chemistry was normal. Liver function was normal. Urin e drug screen was negative for all substances. Alcohol was less than detectable. PT was 16.0 and IN R was 1.26. MENTAL STATUS EXAMINATION: Reveals an emaciated female, sitting in the hospital bed. She is adequately groomed and appropriately dressed. She interacts well with the examiner, maintaining g ood eye contact with a calm and pleasant demeanor. Her affect is generally euthymic, stable and appr opriate. Her mood is described as "anxious." Her thought process is linear and goal directed. Her thought content reveals no evidence of psychosis. She is alert and oriented to person, place, time, and situation. Her sensorium is clear. Her memories are intact in all spheres. There is no evidenc e of dementia or delirium. Her intellect appears to be at least average as evidenced by her educatio nal and occupational histories, fund of knowledge, and vocabulary. She denies any thoughts of suicid e, homicide, or violence. Her insight and judgment appear to be good. IMPRESSION: The patient is a 78-year-old female with a history of a 1-year decline in over all physical and emotional health, precipitated possibly by the sudden of her son, as well as h er worsening vision problems. She certainly has appeared depressed, especially over the last several months and suffers from significant anxiety and disordered sleep. The most prominent symptom, howev er, is her starvation. She is dangerously underweight and this is not something that has been a life long process for her. This also coincides with the emergence of her mental health symptoms. It is w as very possible that with this degree of starvation, she is lacking the amino acid substrate for karel quate production of neurotransmitters and her psychiatric symptoms are simply a gross deficit of mono amine activity. The solution for this would be re-feeding as further or increased use of antidepress ant medications or even ECT would likely be unhelpful due to the lack of available neurotransmitters at this time. When the patient was on the inpatient medical service, I indicated that I did not chelsea jonel her to be a good candidate for hospitalization on our inpatient psychiatric unit due to the acuit y and the lack of specific geriatric services. I continue to believe this. I believe that she could do well in either a geriatric psychiatric unit, where she would have in more comfortable and safe en vironment and she could receive higher level of therapeutic activities, or a [facility] setting where she could receive PT, OT, and aggressive re-feeding. IMPRESSION: 1. Major depressive disorder, severe. 2. Possible generalized anxiety disorder. 3. Possible panic disorder. 4. Cachexia. 5. Chronic atrial fibrillation. 6. Tremor. 7. Protracted grief. The patient is a 78-year-old female with a 1-year history of depressive symptoms and anxiet y corresponding with decrease in physical status and dangerous weight loss. She presents at this ana paula e as having remarkably intact cognition, though subjective symptoms of both depression and anxiety. These are inconsistent with her past functioning as is her current cachectic state. I genuinely chelsea jonel that if she is to improve, we need to restore her weight and then would need to wait for normaliz ation of functioning. This process can take 3-6 months. In the interim, I think she is best served in either a chcf or rehab setting or possibly Geriatric Psychiatry. PLAN: 1. Admit to [facility] inpatient unit on a voluntary basis. 2. Will continue her previous outpatient medications as she strongly desires to do this and I do not believe they are harmful. I do not, however, believe they are particularly helpful at this time due to her lack of available neurotransmitter function. 3. Will continue her previous medical medications and support her the best we can on the inpatient u nit. 4. I have consulted physical and occupational therapies, as well as dietary to see if they have any recommendations in regard to her nutritional status and/or re-feeding. 5. Will involve the family in active discussion of next step and attempt to get her to a more defini tive level of care as soon as possible. Estimated length of stay is 3-5 days. /[id number]/MODL
[2018-03-12] MEDS ORDERED: WARFARIN SODIUM 5 MG TAB PO ONE (16:00)
[2018-03-12] MEDS ORDERED: WARFARIN SODIUM 2.5 MG TAB PO ONE (16:00)
[2018-03-12] MEDS ORDERED: WARFARIN SODIUM 2 MG TAB PO SCH (16:00)
[2018-03-12] MEDS ORDERED: PARoxetine HCL 10 MG TAB PO SCH (20:00)
[2018-03-12] MEDS ORDERED: MELATONIN 3 MG TAB PO PRN (20:00)
[2018-03-12] MEDS ORDERED: TRAVOPROST Z 0.004% 2.5 ML OPHT.BTL EACHEYE SCH (21:00)
--- NOTE | 2018-03-12 21:21 | PDMN ---
Medical Necessity Medical necessity: Pt meets INPT criteria per MD as of 03/11/18 and [facility] [id number] Major Depressive Disorder, Adult: Inpatient Care (est. LOS >2 MN for eval/mgmt of major depressive disorder, severe, possible generalized anxiety disorder, possible panic disorder, dangerous weight loss, tremor, chronic Afib).
[2018-03-13] MEDS: SOTALOL HCL 80 MG TAB PO SCH ×2 (05:51→16:46)
[2018-03-13 05:53] VITALS: BP 179/81
[2018-03-13] MEDS: buPROPion XL 150 MG TAB PO SCH (07:48)
[2018-03-13 08:05] LABS: INR 1.26 (0.83-1.16)
[2018-03-13] MEDS: clonazePAM 0.5 MG TAB PO SCH (08:34)
[2018-03-13] MEDS: Brinzolamide 1% 10 ml OPHT.BTL EACHEYE SCH ×2 (09:06→15:37)
[2018-03-13] MEDS: BRIMONIDINE/TIMOLOL 5 ML OPHT.BTL EACHEYE SCH (09:07)
[2018-03-13] MEDS: CHOLECALCIFEROL VIT D3 1,000 UNITS TAB PO SCH (12:27)
[2018-03-13] MEDS: PRESERVISION AREDS2 FORMULA EYE VIT 1 EACH PO SCH (12:39)
--- NOTE | 2018-03-13 14:41 | ASMTCMCOM ---
CM Note CM Note Notes: Patient attended multidisciplinary care meeting with no concern. CC and family w/ MD met regarding care options. Patient / Family and treatment team all concurr patient presenting sx's related to physical /medically related conditions, and that patient requires specialized rehab care to resolve issues of care. Patient has been referred to [facility] who has accepted the patient and can provide some psychiatric support [facility] also referred and will decline due to family choice to admit to [facility]. Patient is psychiatrically clear . She presents as AAOX4 denies si/hi ah/vh and no evidence of psychosis. Date Signed: 03/13/2018 02:40 PM Electronically Signed By:Kaylene Vieyra
--- NOTE | 2018-03-13 14:45 | ASMTBHDC ---
Notes Note: Notes: Patient dc to [facility] [phone] facility will arrange wheel chair transport. Wendall to be called with DC time. Date Signed: 03/13/2018 02:43 PM Electronically Signed By:Kaylene Vieyra
[2018-03-13] MEDS ORDERED: WARFARIN SODIUM 5 MG TAB PO ONE (16:00)
== END 2018-03-13 16:55 | DRG 885 ==
LOC: BBEH 22:30
PROVIDERS: ADMIT Psychiatry & Neurology Psychiatry; ATTEND Psychiatry & Neurology Psychiatry
DX: F32.2 Major depressive disorder, single episode, severe without psychotic features (principal); R63.4 Abnormal weight loss; Z68.1 Body mass index [BMI] 19.9 or less, adult; H35.30 Unspecified macular degeneration; H40.9 Unspecified glaucoma; I48.91 Unspecified atrial fibrillation; I10 Essential (primary) hypertension; E78.5 Hyperlipidemia, unspecified; E55.9 Vitamin D deficiency, unspecified; Z95.0 Presence of cardiac pacemaker
CPT/HCPCS: 80305; 97116-GP; 97162-GP; G0480; G8978-GP-CK; G8979-GP-CJ

== ENCOUNTER 2018-03-31 10:52 | Inpatient (IN) | payer OTHER, MEDICARE ==
--- NOTE | 2018-03-31 11:13 | EDPHY ---
H & P Stated [facility] - Personal History Current Tetanus Diphtheria and Acellular Pertussis (TDAP): Yes - Medical/Surgical History Hx Asthma: No Hx Chronic Respiratory Disease: No Hx Diabetes: No Hx Cardiac Disease: Yes Hx Renal Disease: No Hx Cirrhosis: No Hx Alcoholism: No Hx HIV/AIDS: No Hx Splenectomy or Spleen Trauma: No Other PMH: hysterectomy 1968, pneumonia in 2000, adhesion surgery, sotolol therapy. afib, tachycardia, pacemaker, depression/anxiety, glaucoma, HTN, - Social History Smoking Status: Former smoker Time Seen by Provider: 03/31/18 11:10 HPI/ROS: CHIEF COMPLAINT: Head injury right shoulder injury post mechanical fall HISTORY OF PRESENT ILLNESS: 78-year-old female history of warfarin anticoagulation secondary to atrial fibrillation history arrives via ambulance, not a pre-hospital trauma activation, after she describes walking into her bathroom, slipped on the floor fell forward impacting the right shoulder and right temporoparietal region against the floor. No loss of consciousness. No prolonged periods of immobility on the floor as entered the bathroom shortly thereafter. No hip pain. No alcohol or drug use. No peripheral paresthesia, weakness, numbness. REVIEW OF SYSTEMS: 10 systems reviewed and negative with the exception of the elements mentioned in the history of present illness PAST MEDICAL/SURGICAL HISTORY: Atrial fibrillation. Pacer. Warfarin anticoagulation. Glaucoma. SOCIAL HISTORY: denies alcohol use at time of incident. . Lives with in home. PHYSICAL EXAM 1) GENERAL: Well-developed, well-nourished, alert and oriented. Appears to be in no acute distress. Answering questions appropriately. 2) HEAD: Normocephalic, atraumatic 3) HEENT: Pupils equal, round, reactive to light bilaterally. Negative Horners. Nasopharynx, oropharynx, clear. No deformity or angulation of nose. No septal hematoma. No rhinorrhea. No oral trauma. Ears bilaterally with normal tympanic membranes. No hemotympanum. No fluid or blood in the external auditory canal. No raccoon eyes. No Boo sign. Teeth are normally aligned with no gross malocclusion, TMJ bilaterally nontender, facial bones nontender including the zygomatic arch, maxilla mandible. 4) NECK: No cervical collar is on. Patient unable to fully differentiate true midline versus just lateral of midline pain. No step-off. No effusion 5) LUNGS: Clear to auscultation bilaterally, no wheezes, no rhonchi, no retractions. No obvious signs of trauma. No chest wall pain. No flaring, no grunting. Moving symmetrically. No crepitus. 6) HEART: Regular rate and rhythm, 7) ABDOMEN: No guarding, no rebound, no focal tenderness, no peritoneal signs, no signs of trauma, no ecchymosis 8) MUSCULOSKELETAL: Right upper extremity: No visible trauma, tender to palpation right proximal humerus with no step-off. Intact skin. No ecchymosis. Clavicle nontender. Distal neurovascular status is normal with brisk pulses. Elbow forearm wrist and hand are nontender. Otherwise, Moving all extremities, no focal areas of tenderness, no obvious trauma. Specifically bilateral hips no are pain-free with full pain-free acetabular range of motion. 9) BACK: No midline vertebral tenderness, no fluctuance, no step-off, no obvious trauma, no visual or palpable abnormality. 10) SKIN: No laceration. No abrasion DIFFERENTIAL DIAGNOSIS: Not necessarily in any particular order, my differential diagnosis includes, but is not limited to, concussion, skull fracture, intraparenchymal contusion, humeral fracture, dislocation,, subarachnoid, subdural and epidural hematoma. The patient understands that this diagnosis is provisional and can never be 100% accurate. (Abner Burns) Constitutional: Initial Vital Signs Temperature (C) 36.9 C 03/31/18 11:03 Heart Rate 72 03/31/18 11:03 Respiratory Rate 18 03/31/18 11:03 Blood Pressure 180/84 H 03/31/18 11:03 O2 Sat (%) 96 03/31/18 11:03 O2 Delivery Mode Nasal Cannula O2 (L/minute) 2 Allergies/Adverse Reactions: Macrolide Antibiotics Allergy (Verified 03/31/18 11:00) ondansetron [From Zofran] Allergy (Verified 03/31/18 11:00) Home Medications: Medication Instructions Recorded Brimonidine/Timolol [Combigan (*)] 1 drop EACHEYE BID@07,1830 02/23/14 Brinzolamide 1% [AZOPT 1% (RX)] 1 drop EACHEYE TID@0630,,02/23/14 C/E/Zn/Cu/OM3/DHA/EPA/LUT/ZEAX 1 each PO DAILY@02/23/14 [Preservision Areds 2 Softgel] Cholecalciferol Vit D3 [Vitamin D3 2,000 units PO DAILY@02/23/14 (*)] Travoprost Z 0.004% [Travatan Z 1 drops EACHEYE HS 02/23/14 0.004% (*)] Sotalol HCl [SOTALOL] 120 mg PO BID@,18 03/02/18 clonazePAM [Klonopin (*)] 0.5 mg PO BID@,03/02/18 PARoxetine HCL [Paxil 10mg (*)] 10 mg PO DAILY@1999 #30 tab 03/07/18 Carbidopa/Levodopa 25/100Mg 0.5 tab PO TID 03/31/18 [Sinemet 25/100 MG (*)] Estring Estradiol0.0075 Mg/24h 1 andrzej VG .[id number] 03/31/18 Warfarin Sodium [Coumadin 5MG (*)] 5 mg PO DAILY16 03/31/18 buPROPion XL [Wellbutrin Xl] 75 mg PO DAILY@0730 03/31/18 Medical Decision Making - Diagnostics Imaging Results: Imaging Impressions Cervical Spine CT 03/31/18 10:58 Impression: 1. Bilateral C6 pedicle fractures, possibly chronic/subacute but age- indeterminate. 2. Fusion of C5-C6 with grade 1 anterolisthesis of C6 on C7. 3. Indeterminate lytic lesion in T2. 4. 5 mm right upper lobe lung nodule. Follow-up CT is recommended in 6-12 months. 5. Multiple degenerative change with multilevel spondylolistheses. 6. Additional findings as above. Findings discussed with Abner Burns on 03/31/2018 at 12:10. Head CT 03/31/18 10:58 Impression: 1. No acute intracranial findings. 2. Diffuse cerebral atrophy with periventricular and subcortical low attenuation consistent with chronic microvascular ischemic gliosis. Findings discussed with Abner Burns on 03/31/2018 at 1210. Shoulder X-Ray 03/31/18 10:58 Impression: Humeral head and neck fractures. Images reviewed myself (Abner Burns) ED Course/Re-evaluation: 11:11 a.m.: Head CT ordered in this patient for trauma for the following indication:, greater than 65 years old, anticoagulated. Will also obtain imaging of cervical spine and shoulder. marketing communication manager has been made aware. I saw this patient independently based on established practice protocols. Care of patient under supervision of secondary supervising physician Dr William Nichole with whom I discussed case. 12:15 p.m.: I discussed the imaging results with the patient and . Questionable acute versus subacute C6 pedicle fracture. Patient is a challenging historian, unable to fully tell me whether she is experiencing true midline cervical spine pain or not. She has a nonfocal exam. Cervical collar placed on the patient. 12:27 p.m.: Consultation with Dr. Crow of trauma services who will admit patient for right humeral neck fracture, acute versus subacute C6 pedicle fracture. Case management has been involved as well the patient will more than likely necessitate rehabilitation services post hospitalization (Abner Burns) Other Provider: I reviewed the chart and personally evaluated the patient. She was managed by the PA and myself together. She is alert, moving both feet, in a collar. Pain with right shoulder movement. History confirmed with family as unwitnessed fall, primary c/o right shoulder pain. Database and imaging reviewed; admit trauma for shoulder and c-spine injury, inability to safely ambulate or be discharged home; with appropriate business operations consultant services. I am the secondary supervising physician. (William Nichole) - Data Points Laboratory Results: Laboratory Results 03/31/18 10:55 03/31/18 10:55 03/31/18 03/31/18 03/31/18 10:55 10:55 10:55 WBC 5.12 10^3/uL 10^3/uL (3.80-9.50) RBC 4.36 10^6/uL 10^6/uL (4.18-5.33) Hgb 13.6 g/dL g/dL (12.6-16.3) Hct 40.7 % % (38.0-47.0) MCV 93.3 fL fL (81.5-99.8) MCH 31.2 pg pg (27.9-34.1) MCHC 33.4 g/dL g/dL (32.4-36.7) RDW 13.4 % % (11.5-15.2) Plt Count 198 10^3/uL 10^3/uL (150-400) MPV 11.7 fL fL (8.7-11.7) Neut % (Auto) 62.9 % % (39.3-74.2) Lymph % (Auto) 20.5 % % (15.0-45.0) Jackson % (Auto) 12.7 % % (4.5-13.0) Eos % (Auto) 2.5 % % (0.6-7.6) Baso % (Auto) 0.8 % % (0.3-1.7) Nucleat RBC Rel Count 0.0 % % (0.0-0.2) Absolute Neuts (auto) 3.22 10^3/uL 10^3/uL (1.70-6.50) Absolute Lymphs (auto) 1.05 10^3/uL 10^3/uL (1.00-3.00) Absolute Monos (auto) 0.65 10^3/uL 10^3/uL (0.30-0.80) Absolute Eos (auto) 0.13 10^3/uL 10^3/uL (0.03-0.40) Absolute Basos (auto) 0.04 10^3/uL 10^3/uL (0.02-0.10) Absolute Nucleated RBC 0.00 10^3/uL 10^3/uL (0-0.01) Immature Gran % 0.6 % % (0.0-1.1) Immature Gran # 0.03 10^3/uL 10^3/uL (0.00-0.10) PT 28.9 SEC H SEC (12.0-15.0) INR 2.74 H (0.83-1.16) APTT 36.5 SEC SEC (23.0-38.0) Sodium 137 mEq/L mEq/L (135-145) Potassium 4.4 mEq/L mEq/L (3.3-5.0) Chloride 105 mEq/L mEq/L (97-110) Carbon Dioxide 24 mEq/l mEq/l (22-31) Anion Gap 8 mEq/L mEq/L (8-16) BUN 25 mg/dL H mg/dL (7-23) Creatinine 0.8 mg/dL mg/dL (0.6-1.0) Estimated GFR > 60 Glucose 102 mg/dL H mg/dL (70-100) Calcium 10.1 mg/dL mg/dL (8.5-10.4) Medications Given: Acetaminophen (Tylenol) 325 - 650 mg PO Q4HRS PRN PRN Reason: Pain, Mild Able to Take PO Stop: 09/27/18 13:21 Last Admin: 03/31/18 14:34 Dose: 325 mg Discontinued Medications Hydromorphone HCl (Dilaudid) 0.5 mg IVP EDNOW ONE Stop: 03/31/18 11:42 Last Admin: 03/31/18 11:44 Dose: 0.5 mg Departure - Departure Disposition: [facility] Inpatient Acute Clinical Impression: C6 pedicle fracture Fracture of neck of right humerus Qualifiers: Encounter type: initial encounter Fracture type: closed Qualified Code(s): S42.211A - Unspecified displaced fracture of surgical neck of right humerus, initial encounter for closed fracture Condition: Fair
[2018-03-31 11:34] LABS: PLATELET COUNT 198 10^3/uL (150-400)
[2018-03-31] MEDS ORDERED: HYDROmorphONE/DILAUDID 2 MG/ML INJ IVP ONE (11:41)
[2018-03-31 11:43] LABS: INR 2.74 (0.83-1.16); PROTIME(PATIENT) 28.9 SEC (12.0-15.0)
[2018-03-31] MEDS ORDERED: NALOXONE HCL 0.4 MG/ML INJ IVP PRN (13:22)
[2018-03-31] MEDS ORDERED: ACETAMINOPHEN 325 MG TAB PO PRN (13:22)
--- NOTE | 2018-03-31 13:30 | ASMTCMCOM ---
CM Note CM Note Notes: Met with patient's Mick in the ER while patient was at CT. Chart reviewed from today and recent visits. Patient is current with [facility] and I have contaced Saira #[id number] to inform her of patient's re-admission. Mick states that patient has been doing "better" at home since she was recently discharged from [facility]. "She has been eating better and has gained some weight". Mick admits to feeling overwhelmed with concern for patient's ongoing physical and emotional health issues and the stress they share over the recent of their son. CM to follow Date Signed: 03/31/2018 01:29 PM Electronically Signed By:Yvrose Perez RN
--- NOTE | 2018-03-31 14:03 | GHP ---
DATE OF ADMISSION: 03/31/2018 HISTORY OF PRESENT ILLNESS: 78-year-old woman with a history of Parkinson's dementia who has recently been in the hospital for failure to thrive 3 weeks ago , presents after a fall unwitnessed at home. The patient has been brought in by her with right shoulder pain and unwitnessed fall. The patient is on anticoagulation for atrial fibrillation. The patient's major complaint is that she is cold and that she has right shoulder pain. She has a history that is significant for anticoagulation, dementia. She has been admitted twice in the last month for her issues. She is a very poor historian, unable to get family history, social history from her, was obtained from the patient's and her chart. PAST MEDICAL HISTORY: Significant for severe depression, anxiety, atrial fibrillation, Parkinson's dementia, failure to thrive, glaucoma. MEDICATIONS: Listed in the chart, including warfarin. FAMILY HISTORY: Significant for parents being , son recently from lung cancer, sister who had colon cancer. SOCIAL HISTORY: The patient is , lives with her at home, but has been relatively independent until recently. Former use of tobacco, 1 alcoholic beverage per year. ALLERGIES: She has no known drug allergies. EXAM: VITAL SIGNS: She is afebrile. She has a heart rate of 72, blood pressure is 180/84. She is saturating 96% on 2 L of oxygen. HEENT: Sclerae anicteric. Pupils are 4 mm, reactive, and she has extraocular motions intact. Midface is stable. NECK: She has a soft collar in place with no posterior neck tenderness. She has small amount of tenderness in the right shoulder area with swelling associated with fracture. LUNGS: Clear. HEART: Irregular irregular heart tones. No murmurs. ABDOMEN: Soft, nontender. Well-healed low -transverse and right of midline scars. EXTREMITIES: Without edema. 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 She is able to dorsiflex against gravity and pressure. No focal neurologic deficits are noted. LABORATORY/IMAGING: On admission today, her INR is 2.7. All the rest of her laboratory studies are normal. Review of her CT scan of her head, C-spine, and x-ray of her humerus show that she has no intracranial bleeding, possible old C6 bilateral facet fractures, and the proximal humerus neck fracture, which is nondisplaced. PLAN: Would be to admit to the floor. We will have Medicine consultation for her chronic medical issues, depression, failure to thrive, as well as get a Neurosurgery consult for her facet fractures. Continue cervical collar until determined okay by Neurosurgery. She may need an MRI, but her ability to go through MRI with tremors is limited. We will restart her home medications when they are available for after confirmation by pharmacy. If humeral fx is her major injury transfer to medicine tomorrow would be appropriate as she has been on that service /[id number]/MODL MTDD
--- NOTE | 2018-03-31 15:24 | GCON ---
NEUROSURGICAL CONSULTATION DATE OF CONSULTATION: 03/31/2018 CHIEF COMPLAINT: Right arm pain. HISTORY OF PRESENT ILLNESS: The patient is a 78-year-old female who is on Coumadin for anticoagulation for atrial fibrillation. She was apparently in her bathroom today when she was trying to put some scissors away. She lost her balance and fell, landing on her right shoulder. There was no loss of consciousness, but she was nonambulatory after this event. EMS was contacted, and she was transported by ambulance to the emergency department. There, a CT scan of the cervical spine was obtained, which showed a questionable C6 fracture , and a neurosurgical consultation was requested. She currently denies any neck pain. She denies any upper extremity radicular pain. She is having pain in the right shoulder, which is likely from her right humerus fracture. She is not having any upper extremity weakness, paresthesias, new bowel/bladder problems or ataxia. PAST MEDICAL HISTORY: 1. Atrial fibrillation. 2. Glaucoma. 3. Atrial pacemaker. 4. Hypertension. 5. Parkinson's. MEDICATIONS: Prior to admission: 1. Brimonidine/timolol eyedrops. 2. Wellbutrin. 3. Multivitamin. 4. Carbidopa/levodopa. 5. Vitamin D. 6. Klonopin. 7. Combipatch. 8. Melatonin. 9. Paxil. 10. Sotalol. 11. Travatan. 12. Coumadin. ALLERGIES: Macrobid antibiotics and Zofran. FAMILY HISTORY: Patient has no family history of spine problems. SOCIAL HISTORY: The patient is and has grown children. She is a former smoker and drinks approximately 1 or 2 alcoholic drinks per year. She denies recreational drug use. REVIEW OF SYSTEMS: Negative. PHYSICAL EXAM: GENERAL: Patient is a 78-year-old female lying in the emergency department in a mild amount of distress. HEAD, EYES, EARS, NOSE, AND THROAT: Negative for acute drainage. EXTREMITIES: [place], warm and dry. NEUROLOGICAL: Patient is awake, alert, oriented x4. Pupils equal, round, reactive to light. Extraocular motions are intact. There is no evidence of facial droop. Tongue and uvula are midline. Spinal accessory muscles are intact. She is wearing a hard cervical collar. Her cervical spine is nontender with palpation. She has no pain with range of motion, including flexion, extension, rotation or lateral bending. Her motor strength is physiologic at 5/5 in her arms and legs. Her right arm is limited due to her right humerus fracture. Sensation is grossly intact to light touch. Deep tendon reflexes are 1+/4 in the left biceps, triceps, brachioradialis, bilateral patellar and Achilles. There is negative Juanito's with no clonus. Her right arm deep tendon reflexes were not tested. DIAGNOSTIC STUDIES: A CT scan of the cervical spine from 03/31/2018, shows preservation of the sagittal alignment. There are moderate multilevel degenerative changes. There is autofusion of the C5-6 level. At C6, there appear to be bilateral pedicle fractures, which are chronic in nature. There is osseous calcification along the fracture line, and the C6 vertebral body is anteriorly listhesed in relation to C5 and C7. IMPRESSION: This is a 78-year-old female with a right humerus fracture after a fall. She has chronic bilateral C6 pedicle fractures. PLAN: All the above discussed in detail with the patient. This patient was seen and examined by Dr. Ludwin Finley in emergency room #15 at approximately 1350. These fractures are old as she has an auto fusion of the C5-6 level with cortical trabeculation across both fracture lines of the C6 pedicles. She has no midline cervical neck pain on direct palpation, as well as no pain with active range of motion, so we can both clinically and radiographically clear her cervical spine. No further imaging is needed, and no neurosurgical followup would be needed unless she has neck pain in the future. At this point in time, her cervical spine has been cleared, and we will sign off. Please call with any neurological changes. /[id number]/MODL MTDD
--- NOTE | 2018-03-31 17:04 | CPEKG ---
Test Reason : OPEN Blood Pressure : / mmHG Vent. Rate : 093 BPM Atrial Rate : 091 BPM P-R Int : 208 ms QRS Dur : 081 ms QT Int : 383 ms P-R-T Axes : 068 035 000 degrees QTc Int : 477 ms Atrial-paced complexes Borderline prolonged GA interval Left ventricular hypertrophy Borderline T abnormalities, inferior leads Confirmed by Clayton Engle ([id number]) on 03/31/2018 5:04:37 PM Referred By: Confirmed By:Clayton Engle
--- NOTE | 2018-03-31 18:22 | PDMN ---
Medical Necessity Medical necessity: Pt meets IP criteria per MD; est los >2 mn for eval/tx of R humerus fx & chronic bilateral C6 pedicle fxs s/p fall; admit for further monitoring, Hospitalist/Neurosurgery consults & therapies; comorbid advanced age , Parkinson's, dementia, AFIB on AC, failure to thrive; per H&P & order 03/31/18
[2018-03-31] MEDS: SOTALOL HCL 80 MG TAB PO SCH (18:43)
[2018-03-31] MEDS: WARFARIN SODIUM 5 MG TAB PO SCH (19:06)
[2018-03-31] MEDS: clonazePAM 0.5 MG TAB PO SCH (20:23)
[2018-03-31] MEDS: PARoxetine HCL 10 MG TAB PO SCH (20:23)
[2018-03-31] MEDS: BRIMONIDINE/TIMOLOL 5 ML OPHT.BTL EACHEYE SCH (20:24)
[2018-03-31] MEDS: Brinzolamide 1% 10 ml OPHT.BTL EACHEYE SCH (20:24)
[2018-03-31] MEDS: TRAVOPROST Z 0.004% 2.5 ML OPHT.BTL EACHEYE SCH (20:24)
--- NOTE | 2018-03-31 22:00 | GCON ---
DATE OF CONSULTATION: 03/31/2018 REFERRING PHYSICIAN: Reece Crow MD REASON FOR CONSULTATION: Management of chronic medical issues. HISTORY OF PRESENT ILLNESS: A 78-year-old female with major depressive disorder , anxiety, permanent atrial fibrillation, presenting to the ER after a fall. She slipped in the bathroom this afternoon and landed on her right shoulder. X- ray showed a humeral head/neck fracture without significant displacement. She was hospitalized at [facility] 03/02- 03/07/2018 for weakness and weight loss. Evaluation during that stay was negative including TSH and B12. Neurology was consulted for orofacial tremor, which may have been caused by Abilify and that was discontinued. She was up-to-date on her colon cancer screening, but no recent Pap or mammogram. and patient declined further evaluation with CT imaging. They suspect her weight loss and fatigue was due to her severe depression and anxiety, which has progressed over the last several years. Dr. Bonilla with Psychology evaluated. They considered ECT therapy, but given history of glaucoma, opted to pursue medical management and was re-initiated on Wellbutrin. She electively admitted herself to [facility] on 03/11/2018 and was discharged without intervention. She was discharged to [facility] for 1 week and then sent home with home RN, PT and OT. She says she has been eating and drinking okay and says she has gained 9 pounds. No nausea, vomiting, diarrhea. No chest pain or palpitations. REVIEW OF SYSTEMS: I completed a 10-point review of systems and negative except as noted in HPI. PAST MEDICAL HISTORY: 1. Major depressive disorder and anxiety. 2. Cachexia. 3. Permanent atrial fibrillation. 4. Tremor. 5. Glaucoma. 6. Pacemaker. 7. Parkinson disease. 8. Chronic bilateral C6 pedicle fracture. PAST SURGICAL HISTORY: Hysterectomy with subsequent abdominal surgery for adhesions, pacemaker, 5 eye surgeries for glaucoma. FAMILY HISTORY: Son with lung cancer. Sister with colon cancer. SOCIAL HISTORY: Lives with her , Terrence. They have been 39 years in [place]. Former smoker. No alcohol or illicits. ALLERGIES: None. HOME MEDICATIONS: Klonopin 0.5 mg twice daily, Wellbutrin 75 mg daily, Coumadin 5 mg daily, Travatan eye drops, sotalol 120 mg twice daily, Paxil 10 mg daily, estrogen, vitamin D3, Sinemet, Azopt eye drop, Combigan eye drop. PHYSICAL EXAMINATION: VITAL SIGNS: Temperature 36.4, blood pressure is 138/63 , heart rate in the 60s, respirations 18, 95% on room air. GENERAL: A thin female lying in bed, in no acute distress. Drowsy after just receiving morphine. HEENT: PERRLA. Moist mucous membranes. CV: Regular rate and rhythm. Trace ankle edema. LUNGS: Clear anteriorly. ABDOMEN: Soft, nontender. : No Pires. MUSCULOSKELETAL: Right arm is in a sling. NEURO: Cranial nerves II through XII intact. PSYCH: Alert and oriented x3. LABS: WBC 5, hemoglobin 13, hematocrit 40, platelets 198. INR is 2.74, PT 28. Sodium 137, potassium 4.4, chloride 105, carbon dioxide 24, BUN 25, creatinine 0.8, glucose 102, calcium is 10.1, magnesium is pending. Shoulder x-ray: Right humeral head and neck fractures. Head CT: No intracranial findings. Cervical spine CT: Bilateral C6 pedicle fractures. Fusion at C5-C6. Intermediate lytic lesion T2. A 5 mm right upper lobe nodule. ASSESSMENT AND PLAN: 1. Right humeral fracture, nondisplaced: scheduled Tylenol and p.r.n. morphine. Evaluated as a trauma patient by Dr. Crow who consulted Orthopedics.. 2. Chronic bilateral C6 pedicle fractures: evaluated by Neurosurgery and no intervention needed. Cleared from her C-spine collar. 3. Major depressive disorder/general anxiety disorder: Continue home medication. She was evaluated by Psychiatry last admission and recently at [facility]. Had considered ECT therapy, but given her comorbidities, this could be high risk thus will continue with medical management. 4. Chronic atrial fibrillation: Continue sotalol and Coumadin. Will avoid QT prolonging medications such as Zofran. Her QTc is 477 this admission compared to 432. Potassium is at goal. Check a magnesium. 5. History of glaucoma: Continue home eye drops. 6. Parkinson disorder: Sinemet. 7. Cachexia/weight loss: She is up 6 pounds from her last admission. Will have dietary consult, Ensure supplementation. She had a normal pre-albumin on 03/02/2018. 8. DVT prophylaxis: SCDs. DISPOSITION: Thank you for this consultation. We will follow along. Please call if any questions. /[id number]/MODL MTDD
[2018-03-31] MEDS: ACETAMINOPHEN 500 MG TAB PO SCH (22:25)
[2018-03-31] MEDS: CARBIDOPA/LEVODOPA 25 MG/100 MG TAB PO SCH (22:26)
[2018-04-01] MEDS: ACETAMINOPHEN 500 MG TAB PO SCH ×3 (05:20→23:25)
[2018-04-01 05:30] LABS: INR 2.82 (0.83-1.16); PROTIME(PATIENT) 29.6 SEC (12.0-15.0)
[2018-04-01] MEDS: SOTALOL HCL 80 MG TAB PO SCH ×2 (06:04→18:50)
[2018-04-01] MEDS: clonazePAM 0.5 MG TAB PO SCH ×2 (06:36→20:42)
[2018-04-01] MEDS: BRIMONIDINE/TIMOLOL 5 ML OPHT.BTL EACHEYE SCH ×2 (06:36→17:39)
[2018-04-01] MEDS: Brinzolamide 1% 10 ml OPHT.BTL EACHEYE SCH ×3 (06:36→18:05)
--- NOTE | 2018-04-01 07:37 | GCON ---
REFERRING PHYSICIAN: Reece Crow MD REASON FOR CONSULTATION: Right shoulder injury. HISTORY OF PRESENT ILLNESS: The patient is a 78-year-old woman with a history of Parkinson's dementi a who was recently in the hospital for failure to thrive three weeks ago. She presents after an unwi tnessed fall at home. She is brought in by her with right shoulder pain after the fall. She is anticoagulated for atrial fibrillation. CHIEF COMPLAINT: Pain in the right shoulder posteriorly. PAST MEDICAL HISTORY: Significant for severe depression, anxiety, atrial fibrillation, Parkinson's, failure to thrive, glaucoma. FAMILY HISTORY: Noncontributory. SOCIAL HISTORY: She is , lives with her at home. Does not drink. ALLERGIES: No known drug allergies. PHYSICAL EXAM: GENERAL: She is sitting up in bed in a sling, in no apparent distress. MUSCULOSKELE VARUN: Right shoulder: She is in a sling. There is mild swelling of the shoulder with bruising exten ding down to her axilla. It is tender to palpation over the proximal humerus. Any motion of the timoteo ulder generates pain. She is neurovascularly intact distally. IMAGING: I reviewed the x-rays of the right shoulder which demonstrate a three-part proximal humerus fracture. The fracture is in good alignment on both views. ASSESSMENT AND PLAN: Right three-part proximal humerus fracture. The fracture is well aligned. We will plan on closed treatment with a sling and therapy while she is in the hospital. She needs to co ntinue to wear the sling for comfort. She is allowed gentle range of motion of her elbow and wrist t o prevent stiffness. She is to follow up with me in the office in 1 to 1-1/2 weeks with a new x-ray of the right shoulder. She is to be nonweightbearing of the right shoulder. Thank you for this consult. /[id number]/MODL
[2018-04-01] MEDS: CARBIDOPA/LEVODOPA 25 MG/100 MG TAB PO SCH (08:35)
[2018-04-01] MEDS: buPROPion XL 150 MG TAB PO SCH (08:35)
--- NOTE | 2018-04-01 09:41 | TRAUMAPNT ---
Trauma Tertiary Progress Note - Problem/Surgery Performed (1) Parkinsonian tremor Assessment/Plan: recently started Sinemet after consulting with the mobility clinic at [facility] (2) Fall at home Assessment/Plan: mechanism of injury/discussed safety at home PT/OT consults pending recently discharged from [facility] for failure to thrive at home Qualifiers: Encounter type: initial encounter Qualified Code(s): W19.XXXA - Unspecified fall, initial encounter; Y92.009 - Unspecified place in unspecified non-institutional (private) residence as the place of occurrence of the external cause; Y92.009 - Unspecified place in unspecified non-institutional ( private) residence as the place of occurrence of the external cause (3) Fracture of neck of right humerus Assessment/Plan: non-op management per Dr. Holland Qualifiers: Encounter type: initial encounter Fracture type: closed Qualified Code(s) : S42.211A - Unspecified displaced fracture of surgical neck of right humerus, initial encounter for closed fracture (4) Atrial fibrillation and flutter Assessment/Plan: stable hemodynamically (5) Severe major depression without psychotic features Assessment/Plan: on Paxil/Klonopin (6) Weakness Assessment/Plan: additional contributing factor to recent fall Subjective: somnolent/awakens easily/appropriate speech and orientation pain right shoulder feels very weak tolerated dinner and breakfast, using IV Morphine for pain control Objective: Vital Signs Temp Pulse Resp BP Pulse Ox 36.4 C 60 15 87/40 L 91 L 04/01/18 07:34 04/01/18 07:34 04/01/18 07:34 04/01/18 07:34 04/01/18 07:34 03/31/18 04/01/18 04/02/18 05:59 05:59 05:59 Intake Total 300 Output Total 800 Balance -500 PT 29.6 SEC (12.0-15.0) H 04/01/18 05:02 INR 2.82 (0.83-1.16) H 04/01/18 05:02 - C-Spine Clearance Cervical Spine Cleared: Yes Provider who Cleared Cervical Spine: Dr. Finley Physical Exam - Physical Exam General Appearance: mild distress, thin EENT: PERRL/EOMI, normal ENT inspection Neck: non-tender, other (stiff/limited ROM) Respiratory: chest non-tender, lungs clear, normal breath sounds, decreased breath sounds Cardiac/Chest: regular rate, rhythm, other (paced rhythm) Peripheral Pulses: 1+: dorsalis-pedis (R), dorsalis-pedis (L), 2+: carotid (R) ( no bruit), carotid (L) (no bruit), femoral (R), femoral (L) Abdomen: non-tender, soft Pelvic Exam: deferred, other (no tenderness to anterior/lateral compression pelvis) Rectal: deferred Skin: warm/dry Extremities: other (contusion right knee/RUE sling with ice over proximal humerus) Neuro/Psych: alert, oriented x 3, motor weakness (generalized), depressed affect Time Spent w/Patient (minutes): 25
[2018-04-01] MEDS ORDERED: BISACODYL 10 MG SUPP PR PRN (09:56)
[2018-04-01] MEDS ORDERED: LACTULOSE 20 GM/30 ML UDCUP PO PRN (09:56)
[2018-04-01] MEDS ORDERED: POLYETHYLENE GLYCOL 3350 17 GM PKT PO PRN (09:56)
[2018-04-01] MEDS ORDERED: MAGNESIUM HYDROXIDE 30 ML UDCUP PO PRN (09:56)
--- NOTE | 2018-04-01 09:57 | ASMTCMCOM ---
CM Note CM Note Notes: Reviewed chart, this pt has a complex medical and psychosocial hx. She has a diagnosis of Parkinsons dementia, glaucoma, failure to thrive, and depression that has worsened d/t the recent of their son from lung ca. She lives at home with her who works so she is alone most days. In February, she was brought to the hospital for FTT, she discharged home with [facility] but was brought back in and then d/t severe depression she was admitted to inpatient. From , she was then transferred to [facility] for rehab and they could attend to her depression issues. After [facility] she was discharged home. She now presents to [facility] after an unwitnessed fall, it appears she has a fracture to her arm that does not require surgery. PT/OT/[employer] to [facility], there is an inpt rehab consult ordered, She is current with [facility], HERBERT w/f. DC Plan: TBD Date Signed: 04/01/2018 09:57 AM Electronically Signed By:Sarah Martel RN
--- NOTE | 2018-04-01 12:09 | HOSPPROG ---
Hospitalist Progress Note Assessment/Plan: Carolina Turner is a 78 y/o female who slipped in her bathroom and landed on her right shoulder. She sustained a humeral/neck fx without significant displacement. She has a hx of multiple medical problems and was recently discharged from [facility]. Today is my first encounter withe the patient, reviewed her care w Dr Patel. *Right humeral fracture, nondisplaced -nonsurgical -to f/u w Dr Cates in 1-1 1/2 weeks for f/u x ray *pain due to this -scheduled Tylenol, MS, Lidoderm patch *gait instability -she describes losing her balance, no dizziness -only home for a week after being dc from [employer] [facility] -PT and OT * Chronic bilateral C6 pedicle fractures -neurosurgery cleared her C-spine * Major depressive disorder/general anxiety disorder -Paxil -evaluated recently by for poss ECT therapy but has multiple comorbidities and considered high risk * Chronic atrial fibrillation -she also has a pacer in place -rate controlled on sotalol and is OAC -INR is therapeutic -avoid any prolonged QT medication, QTc is 477 * History of glaucoma -resumed eye drops. * Parkinson disorder -Sinemet. * Cachexia/weight loss,BMI of 17 -dietary to see -she has put on 6 lbs since last admission. *indeterminate lytic lesion at T2 *pulmonary nodule 5 mm -needs f/u imaging in the future *dvt prophylaxis: on OAC Subjective: Carolina has significant pain w getting oob, but while in bed she feels fine. Objective: Vital Signs Temp Pulse Resp BP Pulse Ox 36.4 C 60 15 87/40 L 91 L 04/01/18 07:34 04/01/18 07:34 04/01/18 07:34 04/01/18 07:34 04/01/18 07:34 03/31/18 04/01/18 04/02/18 05:59 05:59 05:59 Intake Total 300 Output Total 800 Balance -500 PT 29.6 SEC (12.0-15.0) H 04/01/18 05:02 INR 2.82 (0.83-1.16) H 04/01/18 05:02 - Physical Exam Constitutional: chronically ill appearing, cachectic, No appears nourished Eyes: PERRL Ears, Nose, Mouth, Throat: hearing normal Cardiovascular: regular rate and rhythym Respiratory: no respiratory distress Gastrointestinal: normoactive bowel sounds Skin: warm, other (right arm in sling, good cms) Musculoskeletal: generalized weakness Neurologic: AAOx3 Psychiatric: interacting appropriately ICD10 Worksheet Patient Problems: Problems Problem Status Onset Fall at home Acute Fall in bathtub Acute Fracture of neck of right humerus Acute Parkinsonian tremor Acute Atrial fibrillation and flutter Acute Resting tremor Acute Severe major depression without psychotic features Acute Verbalizes suicidal thoughts Acute Weakness Acute
[2018-04-01] MEDS: LIDOCAINE 4%/MENTHOL 1% PATCH TD SCH (12:15)
[2018-04-01] MEDS: WARFARIN SODIUM 5 MG TAB PO SCH (15:09)
--- NOTE | 2018-04-01 16:13 | SOAPPROG ---
Downtime Inpatient MD Late Entry SOAP Note: plain films right knee show a small chip fx of the medial tibial plateau. Films were reviewed with Dr. Holland. Will only immobilize if patient having pain with weight bearing. Beatriz Patel MD, FACS
[2018-04-01] MEDS: SENNOSIDES/DOCUSATE SODIUM TAB PO SCH (20:40)
[2018-04-01] MEDS: PARoxetine HCL 10 MG TAB PO SCH (20:41)
[2018-04-01] MEDS: PATCH REMOVAL 1 EA PATCH TD SCH (20:45)
[2018-04-01] MEDS: TRAVOPROST Z 0.004% 2.5 ML OPHT.BTL EACHEYE SCH (20:48)
[2018-04-02] MEDS: SOTALOL HCL 80 MG TAB PO SCH ×2 (05:19→16:51)
[2018-04-02] MEDS: Brinzolamide 1% 10 ml OPHT.BTL EACHEYE SCH ×3 (05:21→16:57)
[2018-04-02 05:32] LABS: INR 3.69 (0.83-1.16); PROTIME(PATIENT) 36.3 SEC (12.0-15.0)
[2018-04-02] MEDS: ACETAMINOPHEN 500 MG TAB PO SCH ×3 (06:34→21:18)
[2018-04-02] MEDS: BRIMONIDINE/TIMOLOL 5 ML OPHT.BTL EACHEYE SCH ×2 (08:05→17:23)
[2018-04-02] MEDS: clonazePAM 0.5 MG TAB PO SCH ×2 (08:06→21:17)
[2018-04-02] MEDS: buPROPion XL 150 MG TAB PO SCH (08:06)
[2018-04-02] MEDS: SENNOSIDES/DOCUSATE SODIUM TAB PO SCH ×2 (08:06→21:18)
[2018-04-02] MEDS: CARBIDOPA/LEVODOPA 25 MG/100 MG TAB PO SCH (08:07)
[2018-04-02] MEDS: LIDOCAINE 4%/MENTHOL 1% PATCH TD SCH (08:13)
--- NOTE | 2018-04-02 08:14 | SOAPPROG ---
SOAP Progress Note Assessment/Plan: Assessment: R 3 part prox humerus fx. R knee bruising - xray showing tiny bony avulsion. This may be indicative of sprain Plan: -sling R shoulder -NWB RUE. ROM of elbow, wrist, and hand ok -she should f/u with me in 1-2 wks for the shoulder -Knee stable to exam with minimal tenderness. I think she can weight bear without brace. 04/02/18 08:12 Subjective: Knee feels better this am. Shoulder stable, doing ok in sling Objective: Vital Signs Temp Pulse Resp BP Pulse Ox 36.7 C 83 16 149/82 H 95 04/02/18 07:12 04/02/18 07:12 04/02/18 07:12 04/02/18 07:12 04/02/18 07:12 04/01/18 04/02/18 04/03/18 05:59 05:59 05:59 Intake Total 300 700 Output Total 800 1050 Balance -500 -350 PT 36.3 SEC (12.0-15.0) H 04/02/18 04:36 INR 3.69 (0.83-1.16) H 04/02/18 04:36 RUE -in sling RLE -bruising over knee -minimal ttp over medial jt line -stable varus/valgus stress ICD10 Worksheet Patient Problems: Problems Problem Status Onset Fall at home Acute Fall in bathtub Acute Fracture of neck of right humerus Acute Parkinsonian tremor Acute Atrial fibrillation and flutter Acute Resting tremor Acute Severe major depression without psychotic features Acute Verbalizes suicidal thoughts Acute Weakness Acute
[2018-04-02] MEDS ORDERED: traMADol 50 MG TAB PO PRN (11:48)
--- NOTE | 2018-04-02 11:58 | ASMTCMCOM ---
HERBERT Note CM Note Notes: HERBERT spoke to Sho at [facility].. [facility] is able to accept pt back to their Acute Rehab even though therapies are recommending SNF. Sho can assist in arranging transportation. HERBERT spoke to pts and he is on board w/ the plan. HERBERT spoke to Dr. Em about this case. CM to follow. Plan: [facility], Acute Rehab Date Signed: 04/02/2018 11:58 AM Electronically Signed By:OMER Ny
[2018-04-02] MEDS ORDERED: NS 1,000 ML IV SCH (12:00)
--- NOTE | 2018-04-02 12:14 | HOSPPROG ---
Hospitalist Progress Note Assessment/Plan: Carolina Turner is a 78 y/o female who slipped in her bathroom and landed on her right shoulder. She sustained a humeral/neck fx without significant displacement. We have been asked to provide consultation regarding her chronic medical problems. *Right humeral fracture, nondisplaced -nonsurgical -to f/u w Dr Cates in 1-1 1/2 weeks for f/u x ray *Acute pain syndrome due to this -scheduled Tylenol, Lidoderm patch -MS has been sedating. I will stop Morphine and will start Tramadol *Dehydration -Her oral intake has been limited -will start gently IVF *gait instability -she describes losing her balance, no dizziness -only home for a week after being dc from [facility] -PT and OT -she will need to return to [facility] * Chronic bilateral C6 pedicle fractures -neurosurgery cleared her C-spine * Major depressive disorder/general anxiety disorder -Paxil -evaluated recently by for poss ECT therapy but has multiple comorbidities and considered high risk * Chronic atrial fibrillation -she also has a pacer in place -rate controlled on sotalol and is OAC -INR is elevated. Warfarin is being held * prolonged QT medication, QTc is 477 -avoid meds prolonging this * History of glaucoma -resumed eye drops. * Parkinson disorder -Sinemet. * Cachexia/weight loss,BMI of 17 -dietary following -she has put on 6 lbs since last admission. *indeterminate lytic lesion at T2 *pulmonary nodule 5 mm -needs f/u imaging in the future *dvt prophylaxis: on OAC Plan: Pain mgmt per above, Tramadol added today Hold Warfarin IVF today, encourage PO as well will need return to [facility]: per primary team. Not ready today Subjective: no cp or sob. feels somewhat loopy after Morphine. Pain is currently controlled. Objective: Vital Signs Temp Pulse Resp BP Pulse Ox 36.7 C 83 16 149/82 H 95 04/02/18 07:12 04/02/18 07:12 04/02/18 07:12 04/02/18 07:12 04/02/18 07:12 04/01/18 04/02/18 04/03/18 05:59 05:59 05:59 Intake Total 300 700 50 Output Total 800 1050 400 Balance -500 -350 -350 PT 36.3 SEC (12.0-15.0) H 04/02/18 04:36 INR 3.69 (0.83-1.16) H 04/02/18 04:36 - Physical Exam Constitutional: chronically ill appearing Eyes: PERRL Ears, Nose, Mouth, Throat: moist mucous membranes Cardiovascular: regular rate and rhythym, No edema Respiratory: no respiratory distress, no rales or rhonchi, clear to auscultation Gastrointestinal: normoactive bowel sounds, soft, non-tender abdomen Skin: warm Musculoskeletal: generalized weakness Neurologic: AAOx3 Psychiatric: interacting appropriately, not anxious, not encephalopathic Lymph, Heme, Immunologic: No petechiae ICD10 Worksheet Patient Problems: Problems Problem Status Onset Fall at home Acute Fall in bathtub Acute Fracture of neck of right humerus Acute Parkinsonian tremor Acute Atrial fibrillation and flutter Acute Resting tremor Acute Severe major depression without psychotic features Acute Verbalizes suicidal thoughts Acute Weakness Acute
--- NOTE | 2018-04-02 12:40 | SOAPPROG ---
SOAP Progress Note Assessment/Plan: Assessment: FU 78 FEMALE WITH FALL AND RT HUMERUS FX AFEBRILE/ VS OK/ COMFORTABLE WHEN NOT MOVING HEENT OK CHEST CLEAR AND SYMMETRIC COR RR ABD SOFT, NONTENDER EXTREM RT ARM SLING Plan:SNF PLACEMENT/ NONSURGICAL RX FOR HUMERUS FX 04/02/18 12:37 Objective: Vital Signs Temp Pulse Resp BP Pulse Ox 36.7 C 83 16 149/82 H 95 04/02/18 07:12 04/02/18 07:12 04/02/18 07:12 04/02/18 07:12 04/02/18 07:12 04/01/18 04/02/18 04/03/18 05:59 05:59 05:59 Intake Total 300 700 50 Output Total 800 1050 400 Balance -500 -350 -350 PT 36.3 SEC (12.0-15.0) H 04/02/18 04:36 INR 3.69 (0.83-1.16) H 04/02/18 04:36 ICD10 Worksheet Patient Problems: Problems Problem Status Onset Fall at home Acute Fall in bathtub Acute Fracture of neck of right humerus Acute Parkinsonian tremor Acute Atrial fibrillation and flutter Acute Resting tremor Acute Severe major depression without psychotic features Acute Verbalizes suicidal thoughts Acute Weakness Acute
[2018-04-02] MEDS: PARoxetine HCL 10 MG TAB PO SCH (21:17)
[2018-04-02] MEDS: TRAVOPROST Z 0.004% 2.5 ML OPHT.BTL EACHEYE SCH (21:17)
[2018-04-02] MEDS: PATCH REMOVAL 1 EA PATCH TD SCH (21:17)
[2018-04-03] MEDS: SOTALOL HCL 80 MG TAB PO SCH ×2 (05:17→17:50)
[2018-04-03] MEDS: ACETAMINOPHEN 500 MG TAB PO SCH ×3 (06:12→21:55)
[2018-04-03] MEDS: clonazePAM 0.5 MG TAB PO SCH ×2 (06:12→20:22)
[2018-04-03] MEDS: Brinzolamide 1% 10 ml OPHT.BTL EACHEYE SCH ×3 (06:13→16:56)
[2018-04-03] MEDS: BRIMONIDINE/TIMOLOL 5 ML OPHT.BTL EACHEYE SCH ×2 (06:13→17:18)
[2018-04-03 06:21] LABS: INR 2.92 (0.83-1.16); PROTIME(PATIENT) 30.4 SEC (12.0-15.0)
[2018-04-03] MEDS: buPROPion XL 150 MG TAB PO SCH (08:53)
[2018-04-03] MEDS: CARBIDOPA/LEVODOPA 25 MG/100 MG TAB PO SCH ×2 (08:54→20:21)
[2018-04-03] MEDS: LIDOCAINE 4%/MENTHOL 1% PATCH TD SCH (08:55)
[2018-04-03] MEDS: SENNOSIDES/DOCUSATE SODIUM TAB PO SCH ×2 (09:00→20:28)
[2018-04-03] MEDS ORDERED: WARFARIN SODIUM 5 MG TAB PO SCH (09:39)
[2018-04-03] MEDS ORDERED: traMADol 50 MG TAB PO PRN (09:40)
--- NOTE | 2018-04-03 09:42 | SOAPPROG ---
SOAP Progress Note Assessment/Plan: Assessment: Plan: Subjective: complaing of jagruti in r [facility]- hoping that po tramadol will be sufficient for transfer to snf. lungs clear, abd soft, no new complaints. Objective: Vital Signs Temp Pulse Resp BP Pulse Ox 36.7 C 60 14 92/47 L 94 04/03/18 08:00 04/03/18 08:00 04/03/18 08:00 04/03/18 08:00 04/03/18 08:00 04/02/18 04/03/18 04/04/18 05:59 05:59 05:59 Intake Total 700 200 Output Total 1050 700 Balance -350 -500 PT 30.4 SEC (12.0-15.0) H 04/03/18 05:32 INR 2.92 (0.83-1.16) H 04/03/18 05:32 ICD10 Worksheet Patient Problems: Problems Problem Status Onset Fall at home Acute Fall in bathtub Acute Fracture of neck of right humerus Acute Parkinsonian tremor Acute Atrial fibrillation and flutter Acute Resting tremor Acute Severe major depression without psychotic features Acute Verbalizes suicidal thoughts Acute Weakness Acute
--- NOTE | 2018-04-03 09:45 | HOSPPROG ---
Hospitalist Progress Note Assessment/Plan: Carolina Turner is a 78 y/o female who slipped in her bathroom and landed on her right shoulder. She sustained a humeral/neck fx without significant displacement. We have been asked to provide consultation regarding her chronic medical problems. Her pain is well controlled. She did not tolerate Morphine as it caused AMS and she has taken Tramadol today which I think she will tolerate well. If she does tolerate well, she will be ready for discharge to [facility] for acute rehab. Her Warfarin dose has been decreased to 4mg daily (down from 5mg daily) as her INR became supratherapeutic. Her INR is 2.92 today and her next dose should be this afternoon 04/03. She needs a PT/INR checked tomorrow. Further mgmt per [facility] hospitalist team. She will need f/u with Orthopedics She is tolerating a diet. She is no longer dehydrated but did require IVF x 1 liter *Right humeral fracture, nondisplaced -nonsurgical -to f/u w Dr Cates in 1-1 1/2 weeks for f/u x ray *Acute pain syndrome due to this -Tylenol, Lidoderm patch -MS has been sedating. Cont Tramadol if tolerates it *Dehydration -resolved *gait instability -she describes losing her balance, no dizziness -only home for a week after being dc from [facility] -PT and OT -she will need to return to [facility] * Chronic bilateral C6 pedicle fractures -neurosurgery cleared her C-spine * Major depressive disorder/general anxiety disorder -Paxil -evaluated recently by for poss ECT therapy but has multiple comorbidities and considered high risk * Chronic atrial fibrillation -she also has a pacer in place -rate controlled on sotalol and is OAC -INR was elevated and Warfarin has been adjusted per above * prolonged QT medication, QTc is 477 -avoid meds prolonging this * History of glaucoma -resumed eye drops. * Parkinson disorder -Sinemet has been increased to BID dosing * Cachexia/weight loss,BMI of 17 -dietary following -she has put on 6 lbs since last admission. *indeterminate lytic lesion at T2 *pulmonary nodule 5 mm -needs f/u imaging in the future *dvt prophylaxis: on OAC Subjective: Feels better than yesterday. She is not confused. She is tolerating a diet. Objective: Vital Signs Temp Pulse Resp BP Pulse Ox 36.7 C 60 14 92/47 L 94 04/03/18 08:00 04/03/18 08:00 04/03/18 08:00 04/03/18 08:00 04/03/18 08:00 04/02/18 04/03/18 04/04/18 05:59 05:59 05:59 Intake Total 700 200 Output Total 1050 700 Balance -350 -500 PT 30.4 SEC (12.0-15.0) H 04/03/18 05:32 INR 2.92 (0.83-1.16) H 04/03/18 05:32 - Physical Exam Constitutional: chronically ill appearing Eyes: PERRL Ears, Nose, Mouth, Throat: moist mucous membranes, hearing normal Cardiovascular: regular rate and rhythym Respiratory: no respiratory distress Gastrointestinal: normoactive bowel sounds, soft, non-tender abdomen, no palpable masses Genitourinary: no bladder fullness Skin: warm Neurologic: AAOx3 Psychiatric: interacting appropriately, not anxious, not encephalopathic Lymph, Heme, Immunologic: No petechiae ICD10 Worksheet Patient Problems: Problems Problem Status Onset Fall at home Acute Fall in bathtub Acute Fracture of neck of right humerus Acute Parkinsonian tremor Acute Atrial fibrillation and flutter Acute Resting tremor Acute Severe major depression without psychotic features Acute Verbalizes suicidal thoughts Acute Weakness Acute
--- NOTE | 2018-04-03 15:16 | ASMTCMCOM ---
CM Note CM Note Notes: Spoke with RN Edel, pt may be ready medically for d/c tomorrow. Sho at [facility] inpatient rehab [phone] reports they can accept weekend admissions at any time, no specific parameters Updates sent to [facility] in [employer]. D/c plan remain [facility] inpatient rehab when medically stable. Date Signed: 04/03/2018 03:14 PM Electronically Signed By:HELEN Mendenhall
[2018-04-03] MEDS ORDERED: WARFARIN SODIUM 4 MG TAB PO SCH (16:00)
[2018-04-03] MEDS: traMADol 50 MG TAB PO PRN ×2 (17:04→20:20)
[2018-04-03] MEDS: PARoxetine HCL 10 MG TAB PO SCH (20:21)
[2018-04-03] MEDS: PATCH REMOVAL 1 EA PATCH TD SCH (20:22)
[2018-04-03] MEDS: TRAVOPROST Z 0.004% 2.5 ML OPHT.BTL EACHEYE SCH (20:23)
[2018-04-04] MEDS: traMADol 50 MG TAB PO PRN ×2 (02:00→11:56)
[2018-04-04] MEDS: SOTALOL HCL 80 MG TAB PO SCH (05:04)
[2018-04-04 05:34] LABS: INR 2.1 (0.83-1.16); PROTIME(PATIENT) 23.6 SEC (12.0-15.0)
[2018-04-04] MEDS: buPROPion XL 150 MG TAB PO SCH (05:50)
[2018-04-04] MEDS: Brinzolamide 1% 10 ml OPHT.BTL EACHEYE SCH ×2 (05:50→11:57)
[2018-04-04] MEDS: clonazePAM 0.5 MG TAB PO SCH (05:50)
[2018-04-04] MEDS: BRIMONIDINE/TIMOLOL 5 ML OPHT.BTL EACHEYE SCH (05:50)
[2018-04-04] MEDS: ACETAMINOPHEN 500 MG TAB PO SCH (06:18)
[2018-04-04] MEDS: CARBIDOPA/LEVODOPA 25 MG/100 MG TAB PO SCH (09:20)
[2018-04-04] MEDS: LIDOCAINE 4%/MENTHOL 1% PATCH TD SCH (09:20)
--- NOTE | 2018-04-04 10:02 | PDIAF ---
- Diagnosis Diagnosis: Fall in bathtub. Humeral head fracture nondisplaced. Avulsion f forx rt t Code Status: Limited Resuscitation - Medication Management Discharge Medications: Medications to Continue on Transfer Brimonidine/Timolol [Combigan (*)] 1 drop EACHEYE BID@07,1830 02/23/14 [Last Taken 03/11/18] Brinzolamide 1% [AZOPT 1% (RX)] 1 drop EACHEYE TID@06,02/23/14 [Last Taken 03/11/18] C/E/Zn/Cu/OM3/DHA/EPA/LUT/ZEAX [Preservision Areds 2 Softgel] 1 each PO DAILY@ 02/23/14 [Last Taken 03/01/18] Cholecalciferol Vit D3 [Vitamin D3 (*)] 2,000 units PO DAILY@02/23/14 [Last Taken 03/11/18] Travoprost Z 0.004% [Travatan Z 0.004% (*)] 1 drops EACHEYE HS 02/23/14 [Last Taken 03/11/18] Sotalol HCl [SOTALOL] 120 mg PO BID@03/02/18 [Last Taken 03/11/18] clonazePAM [Klonopin (*)] 0.5 mg PO BID@03/02/18 [Last Taken 03/11/18] PARoxetine HCL [Paxil 10mg (*)] 10 mg PO DAILY@1999 #30 tab 03/07/18 [Last Taken 03/11/18] Carbidopa/Levodopa 25/100Mg [Sinemet 25/100 MG (*)] 0.5 tab PO TID 03/31/18 [ Last Taken Unknown] Estring Estradiol0.0075 Mg/24h 1 andrzej VG .[id number] 03/31/18 [Last Taken 03/01/18] Warfarin Sodium [Coumadin 5MG (*)] 5 mg PO DAILY16 03/31/18 [Last Taken 03/30/18 ] buPROPion XL [Wellbutrin 150mg XL] 75 mg PO DAILY@0730 03/31/18 [Last Taken Unknown] Acetaminophen [Tylenol ES 500 mg (*)] 1,000 mg PO Q8HRS tab 04/04/18 [Last Taken Unknown] traMADol [Ultram 50 mg (*)] 25 - 50 mg PO Q4HRS PRN #30 tab 04/04/18 [Last Taken Unknown] Discharge Medications: Refer to the Discharge Home Medication list for PRN reason. - Orders Services needed: Registered Nurse, Physical Therapy, Occupational Therapy Isolation Type: None Diet Recommendation: no restrictions on diet Diet Texture: Regular Texture Diet, Thin Liquids Additional Instructions: Nonweightbearing right upper extremity. Sling for comfort. Range of motion okay for elbow wrist and hand Weight-bearing as tolerated right lower extremity tibia chip fracture - Follow Up Care Current Providers and Referrals: Patient,NotPresent [Unknown] - As per Instructions Silas Holland MD [Medical Doctor] - follow up in 10 days (CALL FOR APT)
[2018-04-04] MEDS: SENNOSIDES/DOCUSATE SODIUM TAB PO SCH (10:03)
--- NOTE | 2018-04-04 10:08 | PDDCSUM ---
Discharge Summary Discharge Summary: Date of admission: 03/31/2018 Date of discharge: 04/04/2018 Principal diagnosis: Fall from standing height in bathtub. Injury sustained right humeral head fracture and small avulsion fracture of right tibia. Seen in consultation by Orthopedic surgery Dr. Holland nonweightbearing right upper extremity sling for comfort non operative therapy. Right lower extremity has no restrictions no brace required for weight-bearing. She was also seen in consultation by Dr. Finley neurosurgery for C6 facet fractures that appear to be chronic no specific care short or long-term for this problem. Secondary issues include: Permanent atrial fibrillation - on anticoagulation supratherapeutic on admission Major depressive disorder Cachexia/failure to thrive Parkinson's disease Patient was admitted to the hospital with right upper extremity pain. Pain is controlled now with tramadol orally. Her super therapeutic anticoagulation has been adjusted with transition her warfarin dose from 5 mg down to 4 mg daily She had recently been discharged from [facility] due to to sequential admissions to [facility] in February and been home 1 week prior to the fall She has tolerated a diet Blood pressure is controlled. Psychosocial issues have been addressed. She will be discharged to the rehabilitation center for follow-up care. She will follow up with Dr. Holland in 10 days from discharge for reassessment of her fracture. No follow-up with Neurosurgery. Follow up with primary care as indicated. Medications to Continue on Transfer Brimonidine/Timolol [Combigan (*)] 1 drop EACHEYE BID@07,1830 02/23/14 [Last Taken 03/11/18] Brinzolamide 1% [AZOPT 1% (RX)] 1 drop EACHEYE TID@0630,02/23/14 [Last Taken 03/11/18] C/E/Zn/Cu/OM3/DHA/EPA/LUT/ZEAX [Preservision Areds 2 Softgel] 1 each PO DAILY@ 02/23/14 [Last Taken 03/01/18] Cholecalciferol Vit D3 [Vitamin D3 (*)] 2,000 units PO DAILY@02/23/14 [Last Taken 03/11/18] Travoprost Z 0.004% [Travatan Z 0.004% (*)] 1 drops EACHEYE HS 02/23/14 [Last Taken 03/11/18] Sotalol HCl [SOTALOL] 120 mg PO BID@,18 03/02/18 [Last Taken 03/11/18] clonazePAM [Klonopin (*)] 0.5 mg PO BID@,03/02/18 [Last Taken 03/11/18] PARoxetine HCL [Paxil 10mg (*)] 10 mg PO DAILY@2000 #30 tab 03/07/18 [Last Taken 03/11/18] Carbidopa/Levodopa 25/100Mg [Sinemet 25/100 MG (*)] 0.5 tab PO TID 03/31/18 [ Last Taken Unknown] Estring Estradiol0.0075 Mg/24h 1 andrzej VG .[id number] 03/31/18 [Last Taken 03/01/18] Warfarin Sodium [Coumadin 5MG (*)] 5 mg PO DAILY16 03/31/18 [Last Taken 03/30/18 ] buPROPion XL [Wellbutrin 150mg XL] 75 mg PO DAILY@0730 03/31/18 [Last Taken Unknown] Acetaminophen [Tylenol ES 500 mg (*)] 1,000 mg PO Q8HRS tab 04/04/18 [Last Taken Unknown] traMADol [Ultram 50 mg (*)] 25 - 50 mg PO Q4HRS PRN #30 tab 04/04/18 [Last Taken Unknown] Discharge Medications Discharge ED Provider: William Nichole Status: Z Complete Time Seen by Provider: 03/31/18 11:10 Condition: Fair Triaged At: 03/31/18 10:52 Other ED Providers: Trauma,Services Emergency Discharge Date/Time: 03/31/18 14:04 Emergency Discharge Disposition: [facility] Inpatient Acute Clinical Impression Fracture of neck of right humerus .C6 pedicle fracture Emergency Discharge Comment: Admit Intervention Last Done Discharge Assessment-ED 03/31/18 13:54 Query Result Associated Mechanism of Injury/Trauma Yes Limited/Minor Trauma Patient Surgical No Evaluation Dynamics Ax Technical Architect Services Used During Patient No 's Visit Disposition [facility] Admission/Transfer [facility] Admit/Transfer Destination [address] [facility] Admission Delayed Over 1 Hour Due to No Delay Pt Evaluated By Admitting MD No Patient Seen by Other Consultants No Patient Admission Orders Reviewed Yes Recent History of MDRO/Clostridium No Difficile Any Patient Safety Concerns Fall Risk Any Pending Diagnostics No Significant Events in the ED No Mentation at Admission AAOx3 Calm Psychosocial issues None Identified Report Called to Floor 13:50 Nurses Name/Number Receiving Report Margarita Time Report Called/Texted to Receiving 13:50 Nurse Blood Pressure 175/106 Blood Pressure Method Automatic Mean Arterial Pressure (MAP) 129 Heart Rate 92 Respiratory Rate 16 O2 Sat (%) 99 O2 Delivery Mode Room Air Temperature (C) 36.9 C Temperature Source Oral Capillary Refill Less Than 2 Seconds Patient Required Critical Care During ED No Course IV Hydration/Medications Infusing at No Discharge Inpatient Discharge Date/Time: Inpatient Discharge Disposition: Other Rehab, Not [place] Inpatient Discharge Comment: Observation Discharge Date/Time: Observation Discharge Disposition: Observation Discharge Comment: Instructions: Acetaminophen (By mouth) Tramadol (By mouth) Polyethylene Glycol 3350 (By mouth) Laxative, Stimulant Combination (By mouth) Lidocaine Patch (On the skin) Proximal Humerus Fracture (DC) Prescriptions: traMADol [Ultram 50 mg (*)] Reece Crow
--- NOTE | 2018-04-04 10:13 | HOSPPROG ---
Hospitalist Progress Note Assessment/Plan: Carolina Turner is a 78 y/o female who slipped in her bathroom and landed on her right shoulder. She sustained a humeral/neck fx without significant displacement. We have been asked to provide consultation regarding her chronic medical problems. Her pain is well controlled. She did not tolerate Morphine as it caused AMS and she has taken Tramadol today which she tolerated well Her Warfarin dose has been decreased to 4mg daily (down from 5mg daily) as her INR became supratherapeutic. She may need further increase pending next INR. She will need f/u with Orthopedics She is tolerating a diet. She is no longer dehydrated but did require IVF x 1 liter *Right humeral fracture, nondisplaced -nonsurgical -to f/u w Dr Cates in 1-1 1/2 weeks for f/u x ray *Acute pain syndrome due to this -Tylenol, Lidoderm patch -MS has been sedating. Cont Tramadol if tolerates it *Dehydration -resolved *gait instability -she describes losing her balance, no dizziness -only home for a week after being dc from [facility] -PT and OT -she will need to return to [facility] * Chronic bilateral C6 pedicle fractures -neurosurgery cleared her C-spine * Major depressive disorder/general anxiety disorder -Paxil -evaluated recently by for poss ECT therapy but has multiple comorbidities and considered high risk * Chronic atrial fibrillation -she also has a pacer in place -rate controlled on sotalol and is OAC -INR was elevated and Warfarin has been adjusted per above * prolonged QT medication, QTc is 477 -avoid meds prolonging this * History of glaucoma -resumed eye drops. * Parkinson disorder -Sinemet has been increased to BID dosing * Cachexia/weight loss,BMI of 17 -dietary following -she has put on 6 lbs since last admission. *indeterminate lytic lesion at T2 *pulmonary nodule 5 mm -needs f/u imaging in the future *dvt prophylaxis: on OAC OK for discharge from hospitalist perspective Subjective: no overnight events. no new complaints. pain is well controlled on Warfarin Objective: Vital Signs Temp Pulse Resp BP Pulse Ox 36.4 C 67 12 108/48 L 96 04/04/18 08:00 04/04/18 08:00 04/04/18 08:00 04/04/18 08:00 04/04/18 08:00 04/03/18 04/04/18 04/05/18 05:59 05:59 05:59 Intake Total 200 300 Output Total 700 100 Balance -500 200 PT 23.6 SEC (12.0-15.0) H 04/04/18 05:00 INR 2.10 (0.83-1.16) H 04/04/18 05:00 - Physical Exam Constitutional: no apparent distress Eyes: PERRL Ears, Nose, Mouth, Throat: moist mucous membranes, hearing normal Cardiovascular: regular rate and rhythym, No edema Respiratory: no respiratory distress, no rales or rhonchi, clear to auscultation Gastrointestinal: normoactive bowel sounds Skin: warm Neurologic: AAOx3 Psychiatric: interacting appropriately, not anxious, not encephalopathic Lymph, Heme, Immunologic: No petechiae ICD10 Worksheet Patient Problems: Problems Problem Status Onset Fall at home Acute Fall in bathtub Acute Fracture of neck of right humerus Acute Parkinsonian tremor Acute Atrial fibrillation and flutter Acute Resting tremor Acute Severe major depression without psychotic features Acute Verbalizes suicidal thoughts Acute Weakness Acute
[2018-04-04] MEDS ORDERED: CHOLECALCIFEROL VIT D3 2,000 UNITS TAB/CAP PO SCH (12:00)
[2018-04-04] MEDS ORDERED: PRESERVISION AREDS2 FORMULA EYE VIT 1 EACH PO SCH (12:00)
[2018-04-04 12:28] VITALS: BP 132/68
--- NOTE | 2018-04-04 12:41 | ASMTLACE ---
[facility]BAR Length of stay for Answers: 4-6 days current admission Acuity / Level of Answers: Yes Care: Did the patient have an inpatient admission? # of Emergency department Answers: 0 visits in the last 6 months Score: 7 Date Signed: 04/04/2018 12:41 PM Electronically Signed By:Carolina Pina
--- NOTE | 2018-04-04 12:42 | ASMTLACE ---
CORYE Length of stay for Answers: 4-6 days current admission Acuity / Level of Answers: Yes Care: Did the patient have an inpatient admission? Comorbidities - select Answers: Dementia all that apply Other Notes: A fib, Parkinsons # of Emergency department Answers: 3-4 visits in the last 6 months Social determinants Answers: Mental health diagnosis (anxiety, depression, pers onality disorders, etc.) Score: 17 Date Signed: 04/04/2018 12:41 PM Electronically Signed By:Carolina Pina
--- NOTE | 2018-04-04 12:44 | ASMTDCNOTE ---
Case Management Discharge Discharge Order Complete? Answers: Yes Patient to Obtain Answers: Other Notes: [facility] Transportation Arranged Answers: [facility] will Pick (Date 04/04/2018 01:00 PM & Time) Case Management Transport Answers: Yes Form Complete Faxed Final Orders Answers: Yes Agency/Facility Transfer Answers: Yes Report Printed & Faxed to Receiving Agency Family Notified Answers: Yes Discharge Comments Notes: Pt d/cing to [facility]. Date Signed: 04/04/2018 12:43 PM Electronically Signed By:Carolina Pina
[2018-05-31] MEDS ORDERED: ESTRADIOL VG SCH (09:00)
== END 2018-04-04 13:00 | DRG 563 ==
LOC: EDUNIT# → OBSVTOIN 13:28 → F3N 14:15
PROVIDERS: ADMIT Surgery; ATTEND Surgery
DX: S42.231A 3-part fracture of surgical neck of right humerus, initial encounter for closed fracture (principal); S82.134A Nondisplaced fracture of medial condyle of right tibia, initial encounter for closed fracture; S12.501S Unspecified nondisplaced fracture of sixth cervical vertebra, sequela; Y92.012 Bathroom of single-family (private) house as the place of occurrence of the external cause; W18.2XXA Fall in (into) shower or empty bathtub, initial encounter; E86.0 Dehydration; I48.2 Chronic atrial fibrillation; G31.83 Neurocognitive disorder with Lewy bodies; F02.80 Dementia in other diseases classified elsewhere, unspecified severity, without behavioral disturbance, psychotic disturbance, mood disturbance, and anxiety; R91.1 Solitary pulmonary nodule; R64 Cachexia; Z68.1 Body mass index [BMI] 19.9 or less, adult; F32.9 Major depressive disorder, single episode, unspecified; F41.1 Generalized anxiety disorder; R26.89 Other abnormalities of gait and mobility; I10 Essential (primary) hypertension; H40.9 Unspecified glaucoma; Z87.891 Personal history of nicotine dependence; Z79.01 Long term (current) use of anticoagulants; Z87.01 Personal history of pneumonia (recurrent); Z95.0 Presence of cardiac pacemaker
CPT/HCPCS: 92523-GN; 92610-GN; 96374; 97110-GO; 97116-GP; 97161-GP; 97167-GO; 97530-GP; 97535-GO; G8978-GP-CK; G8979-GP-CI; G8987-GO-CM; G8988-GO-CJ; G8996-GN-CI; G8997-GN-CI; G8998-GN-CI; G9165-GN-CH; G9166-GN-CH; G9167-GN-CH; J1170; J2270

== ENCOUNTER → 2018-05-06 | Outpatient (CLI) | payer OTHER, MEDICARE | LOC: BMCIMAGING 10:03 | PROVIDERS: ATTEND Orthopaedic Surgery Hand Surgery | DX: S42.291A Other displaced fracture of upper end of right humerus, initial encounter for closed fracture (principal) ==

== ENCOUNTER → 2018-06-02 | Outpatient (CLI) | payer OTHER, MEDICARE | LOC: BMCIMAGING 13:16 | PROVIDERS: ATTEND Orthopaedic Surgery Hand Surgery | DX: S42.291D Other displaced fracture of upper end of right humerus, subsequent encounter for fracture with routine healing (principal) ==

== ENCOUNTER → 2018-06-30 | Outpatient (CLI) | payer OTHER, MEDICARE | LOC: BMCIMAGING 13:06 | PROVIDERS: ATTEND Orthopaedic Surgery Hand Surgery | DX: S42.291D Other displaced fracture of upper end of right humerus, subsequent encounter for fracture with routine healing (principal) ==